=== PATIENT | male | born 1950 | race Caucasian/White ===

== ENCOUNTER 2016-07-02 14:07 | Inpatient (IN) ==
[2016-07-02] MEDS ORDERED: Ipratropium/Albuterol Neb 3 ML ONE (15:11)
[2016-07-02] MEDS ORDERED: Ipratropium/Albuterol Neb 3 ML IH ONE (15:11)
--- NOTE | 2016-07-02 15:11 | Emergency Department Note ---
Disposition Clinical Impression: Acute exacerbation of chronic obstructive airways disease, VINCE treated with BiPAP Acute and chronic respiratory failure ([id number]) Qualifiers: Respiratory failure complication: unspecified whether with hypoxia or hypercapnia Qualified Code(s): J96.20 - Acute and chronic respiratory failure, unspecified whether with hypoxia or hypercapnia Congestive heart failure Qualifiers: Congestive heart failure type: unspecified congestive heart failure type Congestive heart failure chronicity: unspecified congestive heart failure chronicity Qualified Code(s): I50.9 - Heart failure, unspecified Disposition: Admitted As Inpatient [facility]Primary Care Provider[facility] - Forms: ED Satisfaction Letter SOB HPI - General Chief Complaint: ED Shortness of Breath/Dyspnea Stated Complaint: DIAZ Time Seen by Provider: 07/02/16 14:11 Source: patient, EMS Limitations: no limitations Nursing Notes Reviewed: Yes Vital Signs Reviewed: Yes - History of Present Illness Pt Subjective Complaint: shortness of breath Onset (ago): day(s) (3) Severity: moderate Consistency/Duration: intermittent Improves with: oxygen, rest, bronchodilators, upright position Worsens with: lying flat, exertion Known history of: COPD, congestive heart failure Associated symptoms: Denies: chest pain, fever, sense of impending doom Treatment prior to arrival: oxygen, bronchodilator, other Cough present: No Cough Frequency: Intermittent - Related Data Home Medications Medication Instructions Recorded Confirmed Calcium Carbonate/Vitamin D3 1 tab PO BID 10/01/14 05/23/15 [Calcium 500-Vit D3 400 Tablet] Clopidogrel [Plavix] 75 mg PO DAILY 10/01/14 05/23/15 Cyanocobalamin (B-12) 1,000 mcg PO DAILY 10/01/14 05/23/15 Docusate Sodium [Colace] 100 mg PO BID PRN 10/01/14 05/23/15 Ferrous Sulfate 325 mg PO BID 10/01/14 05/23/15 Folic Acid 1 mg PO DAILY 10/01/14 05/23/15 Pramipexole [Mirapex] 1 mg PO BID 10/01/14 05/23/15 Sennosides [Senna] 8.6 mg PO BID PRN 10/01/14 05/23/15 Simvastatin [Zocor] 20 mg PO HS 10/01/14 05/23/15 Trihexyphenidyl [Artane] 1 mg PO BID 10/01/14 05/23/15 Budesonide/Formoterol 160/4.5 1 puff IH BIDR 03/24/15 05/23/15 [Symbicort 160/4.5] Omeprazole [PriLOSEC] 20 mg PO DAILY 05/23/15 05/23/15 Tiotropium [Spiriva] 18 mcg IH DAILY 05/23/15 05/23/15 Previous Rx's Medication Instructions Recorded Albuterol Sulfate [Albuterol 1 puff IH Q4H PRN #2 puff 03/28/15 Inhaler] Albuterol Neb [Proventil Neb] 2.5 mg IH Q4HR 60 Days 05/27/15 Aspirin 81 mg PO DAILY tab.chew 05/27/15 Doxycycline 100 mg PO BID 3 Days 05/27/15 Furosemide [Lasix] 40 mg PO BID 30 Days 05/27/15 GuaiFENesin ER [Mucinex] 600 mg PO BID 5 Days 05/27/15 acetaZOLAMIDE [Diamox] 250 mg PO DAILY 2 Days 05/27/15 predniSONE [Prednisone] 10 mg PO AD 6 Days 05/27/15 Allergies Allergy/AdvReac Type Severity Reaction Status Date / Time spironolactone Allergy Mild Hives Verified 07/02/16 14:10 hydrochlorothiazide Allergy Rash Verified 07/02/16 14:10 All systems ED: reviewed and negative except as stated. Constitutional: Reports: weakness. Denies: fever, chills Respiratory: Reports: dyspnea Past Medical History - Past Medical History Source: patient, old records reviewed, obtained from family, nursing notes reviewed Medical history: Reports: cancer, CHF, COPD, hyperlipidemia, hypertension, renal disease, other Surgical history: Reports: other Psychiatric history: Reports: no psych history - Social History Smoking Status: Former smoker Smokeless Tobacco Status: No Alcohol use: Reports: none Drug use: Reports: none Physical Exam - General Limitations: no limitations General appearance: alert, in no apparent distress - Head Head exam: atraumatic, normocephalic, normal inspection - Eye Eye exam: Present: normal appearance, PERRL, EOMI - Expanded Eye Exam Pupils: Left: reactive - ENT ENT exam: normal exam, normal oropharynx, mucous membranes moist - Expanded ENT Exam External ear exam: Present: normal external inspection Mouth exam: Present: normal external inspection Teeth exam: Present: normal inspection Throat exam: Present: normal inspection - Neck Neck exam: Present: normal inspection, full ROM, trachea midline - Chest Chest inspection: Present: normal inspection, symmetric chest wall rise - Respiratory Respiratory exam: Present: prolonged expiratory phase. Absent: respiratory distress, wheezes - Cardiovascular Cardiovascular exam: Present: regular rate, normal rhythm, normal heart sounds - Abdominal Exam Abdominal exam: Present: soft, Non-Tender. Absent: tenderness, distention, guarding, rebound, rigidity - Extremities Exam Extremities exam: Present: normal inspection, full ROM. Absent: tenderness, pedal edema - Expanded Upper Extremity Exam Shoulder exam: Present: normal inspection, full ROM Arm exam: Present: normal inspection, full ROM Elbow exam: Present: normal inspection, full ROM Forearm/Wrist exam: Present: normal inspection, full ROM Hand exam: Present: normal inspection, full ROM Vascular exam: Normal: capillary refill, radial pulse - Expanded Lower Extremity Exam Hip/Pelvis exam: Present: normal inspection, full ROM Upper leg exam: Present: normal inspection, full ROM Knee exam: Present: normal inspection, full ROM Lower leg exam: Present: other (2 + pitting edema) Ankle exam: Present: normal inspection, full ROM Foot/toe exam: Present: normal inspection, full ROM Neurovascular/Tendon exam: Absent: motor deficit, sensory deficit, tendon deficit - Back Exam Back exam: Present: normal inspection, full ROM. Absent: tenderness - Neurological Exam Neurological exam: Present: alert, oriented X3 - Expanded Neurological Exam Patient oriented to: Present: person, place, time Coma Scale Eye Opening: Spontaneous Coma Scale Motor Response: Obeys Commands Coma Scale Verbal Response: Oriented Coma Scale Total: 15 - Psychiatric Psychiatric exam: Present: normal affect, normal mood - Skin Skin exam: Present: warm, dry, intact, normal color Course Vital Signs Temperature 98.8 F 07/02/16 14:10 Pulse Rate 79 07/02/16 14:10 Respiratory Rate 20 07/02/16 14:10 Blood Pressure 121/81 07/02/16 14:10 O2 Sat by Pulse Oximetry 97 07/02/16 14:10 Temperature 98.8 F 07/02/16 14:10 Pulse Rate 85 07/02/16 15:42 Respiratory Rate 18 07/02/16 15:42 Blood Pressure 136/76 07/02/16 15:42 O2 Sat by Pulse Oximetry 94 07/02/16 15:42 Oxygen Delivery Oxygen Delivery Room Air Shortness of Breath/Dyspnea - Differential Diagnosis Likely: congestive heart failure, pneumonia, asthma with exacerbation, pulmonary embolism, pneumothorax, arrhythmia - Medical Records Medical records reviewed: Yes I reviewed the patient's medical records. - Lab Data Lab results reviewed: Yes I reviewed the patient's lab results. - Radiology Data Radiology results reviewed: Yes I reviewed the patient's radiology results. - EKG Data EKG attestation: Yes I reviewed and interpreted this EKG.
[2016-07-02] MEDS ORDERED: Furosemide 40 MG/4 ML VIAL IVP ONE (15:36)
[2016-07-02] MEDS ORDERED: Levofloxacin 750 MG/150 ML 750 MG/150 ML BAG IVPB ONE (16:46)
[2016-07-02] MEDS ORDERED: Ondansetron 4 MG/2 ML VIAL IVP PRN (20:27)
[2016-07-02] MEDS ORDERED: Acetaminophen 325 MG TABLET PO PRN (20:27)
[2016-07-02] MEDS ORDERED: Naloxone 0.4 MG/ML INJ IVP PRN (20:27)
[2016-07-02] MEDS ORDERED: Albuterol 2.5 MG/3 ML NEBULIZER IH PRN (20:30)
--- NOTE | 2016-07-02 20:52 | Internal Med History&Physical ---
Date of Encounter: 07/02/16 Time of Encounter: 20:42 Assessment and Plan (1) Diastolic CHF, acute on chronic Current visit: No Status: Acute 1 patient has been expressing increasing shortness of breath for the past 2 days as well as lower extremity edema weight gain. Chest x-ray did show some vascular congestion. We will continue diuresis patient with Lasix twice a day we will hold torsemide for now continue spironolactone 2 monitor intake and output daily weight 3 fluid restriction 1500 mL 4 low sodium diet (2) Acute and chronic respiratory failure ([id number]) Current visit: No Status: Acute 1 patient has been increasing increasing shortness of breath despite the use of oxygen on presentation his pH was 7.33 PCO2 71 PO2 66. We will continue with oxygen titrated to maintain SPO2 greater than 92% 2 BiPAP at night or obstructive sleep apnea 3 bronchodilators as needed Qualifiers: Respiratory failure complication: hypoxia and hypercapnia Qualified Code(s) : J96.21 - Acute and chronic respiratory failure with hypoxia; J96.22 - Acute and chronic respiratory failure with hypercapnia (3) VINCE treated with BiPAP Current visit: Yes Status: Chronic 1 continue with BiPAP at night and as needed while sleeping (4) Parkinson disease Current visit: No Status: Chronic We will continue his home medications (5) COPD (chronic obstructive pulmonary disease) Current visit: No Status: Chronic 1 patient has history of COPD oxygen dependent with continue with oxygen titrated to maintain SPO2 greater than 92% 2 we will continue with bronchodilators Qualifiers: COPD type: unspecified COPD Qualified Code(s): J44.9 - Chronic obstructive pulmonary disease, unspecified (6) CKD (chronic kidney disease), stage III Current visit: No Status: Chronic 1 presently creatinine is 1.21 which is around baseline we will continue to monitor creatinine 2 monitor intake and output daily weights 3 avoid nephrotoxins (7) DVT prophylaxis Current visit: No Status: Acute 1 [facility] - H&P: HPI Chief complaint: SOB Admitted From: Emergency Dept Plans for Post Hospital Care: Home History of present illness: Mr. Salcido is a 66 year old male . History of hypertension COPD oxygen dependent history of sleep apnea chronic lotion reinduce [facility] history aortic stenosis with status post TAVR 2014, CAD. According patient has been spacing increasing shortness of breath as well as lower extremity swelling over the past 2 days. He has had an 8 pound weight gain over the past 2 days Shortness of breath is worse on exertion he does use home oxygen at 1-1/2 L daily as well as breathing treatments however these have not relieved his shortness of breath. He does have a chronic cough he has been experiencing increase in sputum production which she states is yellow-green. She denies any fevers chills nausea vomiting diarrhea abdominal pain palpitations or chest pain. Patient has been taking all medications as prescribed. Also 2 days ago patient uses a walker in which she is able to sit down and as he was sitting in the walker he fell asleep and fell forward and hit his face onto the walker. He denies any loss of consciousness his left eye is reddened with no drainage or visual changes. He presented to the [facility] with the above complaints. Lab work from the [facility] revealed troponin 0.04 ABG pH 7.33 PCO2 71.2 PO2 56 bicarbonate 37.4 SaO2 85 lactate 0.4. No leukocytosis chest x-ray was obtained which did reveal stable cardiomegaly without evidence of pulmonary edema or pneumonia. Patient was transferred to [facility] for further workup and evaluation. Upon arrival to [facility] ER chest x-ray was obtained which did show some vascular congestion patient was given IV Lasix and DuoNeb. He was admitted for further workup and evaluation. Presently patient is not having any chest pain he does exhibit conversational dyspnea, oxygen saturations 95% on 2 L nasal cannula, lung sounds with scattered crackles in the bases bilaterally heart sounds with S1-S2 no rubs clicks gallops or murmurs noted. Patient has +2 pitting edema to lower extremity abdomen is obese nontender tight. Left eye has conjunctival hemorrhage no drainage noted. He is hemodynamically stable this time I reviewed this case with Dr. Wild who agrees with plan. Past Med Surg Social Fam HX - Past Medical History Medical history: cancer, CHF, COPD, hyperlipidemia, hypertension, renal disease , other Psychiatric history: no psych history, panic disorder, PTSD - Past Surgical History Surgical History: other - Social History Smoking Status: Former smoker Smokeless Tobacco Status: No Alcohol use: none Drug use: none - Family History Mother Family Member Ethnicity: Non- Living Status: Hx Family Respiratory Disorders: No Hx Family Cancer: No Hx Family GI Disorders: No Hx Family Endocrine Disorder: No Hx Family Neuromuscular Disorders: No Hx Family Neurologic Disorders: Yes (CVA.) Hx Family HEENT Disorders: No Hx Family Autoimmune Disorders: No Internal Medicine - H&P: Meds Calcium Carbonate/Vitamin D3 [Calcium 500-Vit D3 400 Tablet] 1 tab PO BID [History] Clopidogrel [Plavix] 75 mg PO DAILY 10/01/14 [History] Cyanocobalamin (B-12) 1,000 mcg PO DAILY 10/01/14 [History] Docusate Sodium [Colace] 100 mg PO BID 10/01/14 [History] Ferrous Sulfate 325 mg PO BID 10/01/14 [History] Folic Acid 1 mg PO DAILY 10/01/14 [History] Pramipexole [Mirapex] 1 mg PO BID 10/01/14 [History] Sennosides [Senna] 8.6 mg PO BID 10/01/14 [History] Simvastatin [Zocor] 20 mg PO HS 10/01/14 [History] Trihexyphenidyl [Artane] 2 mg PO TID 10/01/14 [History] Budesonide/Formoterol 160/4.5 [Symbicort 160/4.5] 2 puff IH BIDR 03/24/15 [ History] Omeprazole [PriLOSEC] 20 mg PO DAILY 05/23/15 [History] Tiotropium [Spiriva] 18 mcg IH DAILY 05/23/15 [History] Acetaminophen [Tylenol] 650 mg PO Q6HR PRN 07/02/16 [History] Albuterol Neb [Proventil Neb] 2.5 mg IH Q6H PRN 07/02/16 [History] Albuterol Sulfate [Albuterol Inhaler] 2 puff IH Q4H PRN 07/02/16 [History] Allopurinol [Zyloprim 100 MG] 100 mg PO DAILY 07/02/16 [History] Ammonium Lactate 1 appl TP BID PRN 07/02/16 [History] Azithromycin [Zithromax] 250 mg PO MOWEFR 07/02/16 [History] Bisacodyl [Dulcolax] 10 mg RC DAILY PRN 07/02/16 [History] Gabapentin [Neurontin] 100 mg PO TID 07/02/16 [History] Lidocaine 4% CRM (LMX) [Lmx 4] 1 appl TP TID PRN 07/02/16 [History] Melatonin 3 mg PO HS 07/02/16 [History] Polyethylene Glycol 3350 [Smoothlax] 17 gm PO DAILY PRN 07/02/16 [History] Potassium Chloride [K-Tab ER] 20 meq PO DAILY 07/02/16 [History] Sod Chloride/B-6/Zinc Acet/Ca [Wound Cleanser] 2 - 3 spray IR AD 07/02/16 [ History] Spironolactone [Aldactone] 25 mg PO DAILY 07/02/16 [History] Torsemide [Demadex] 20 mg PO BID 07/02/16 [History] Allergies spironolactone Allergy (Mild, Verified 07/02/16 14:10) Hives hydrochlorothiazide Allergy (Verified 07/02/16 14:10) Rash All Systems PM: A 10-system review of systems was performed and is negative for pertinent findings except as documented above in the HPI. - Constitutional Constitutional: fatigue, falls, weakness, weight gain - Cardiovascular Cardiovascular ROS IM: dyspnea on exertion, edema - Respiratory Respiratory: dyspnea on exertion, excessive phlegm production, change in phlegm color - Gastrointestinal Gastrointestinal: no abdominal pain, no diarrhea, no hematemesis, no hematochezia, no melena, no nausea, no vomiting - Musculoskeletal Musculoskeletal ROS IM: no numbness, no tingling - Integumentary Integumentary IM: erythema - Neurological Neurological ROS: no confusion, no convulsions, no focal weakness, no numbness, no tingling, no tremor(s) - Constitutional Vitals: Temp Pulse Resp BP Pulse Ox 97.8 F 92 20 135/79 94 07/02/16 18:01 07/02/16 18:01 07/02/16 18:01 07/02/16 18:01 07/02/16 18:01 General appearance: Present: A&O X 3, morbidly obese, answers questions appropriately - Head Head exam: Present: atraumatic, normocephalic - Eye Eye exam: Present: PERRL, conjuntiva pink Pupils: Present: PERRL Additional comments: Left eye lid conjunctival hemorrhage without drainage pain or visual disturbances - Neck Neck exam general surgery: Present: supple, trachea midline. Absent: lymphadenopathy - Respiratory Respiratory exam: Present: rales. Absent: accessory muscle use, rhonchi, wheezes - Cardiovascular Cardiovascular exam: Present: RRR, +S1, +S2. Absent: diastolic murmur, gallop, rubs, systolic murmur - GI/Abdominal GI/Abdominal exam: Present: distended, normal bowel sounds, soft, no peritoneal signs. Absent: tenderness - Extremities Exam Extremities exam: Present: pedal edema, warm, radial pulses palpable and symetrical. Absent: calf tenderness, cyanotic Additional comments: +2 pedal edema to lower extremity is bilaterally up to knees - Neurological Exam Neurological exam: Present: CN II-XII intact, oriented X3, no focal deficits. Absent: pronater drift, facial droop, speech deficit - Skin Skin exam: Present: dry, erythema, intact Internal Med - H&P Results - Labs Labs: Lab work per [facility] drawn at 07/02/2016 12:15 CBC WBC 7.4 hemoglobin 12.1 hematocrit 41.9 platelets 140 ABG pH 7.33P CO2 71.2 PO2 56 bicarbonate 37.4 SaO2 85 lactate 0.4 Chemistry sodium 146 potassium 3.7 chloride 101 bicarbonate 37 BUN 18 creatinine 1.21 glucose 94 Troponin 0.04 - EKG Data EKG shows normal: sinus rhythm Rate: normal - EKG Data Prior EKG available for review: yes When compared to previous EKG: there is no significant change - Diagnostic Studies Chest x-ray Additional comments: Chest X-Ray 07/02/16 14:12 IMPRESSION: CHF mild pulmonary vascular congestion. D/ / Floyd Perez MD / Floyd Perez MD Interpreting Provider: Floyd Perez MD Other Images Additional comments: CT of head without contrast obtained at [facility] on 07/02/2016 Progress etiology read no evidence of intracranial hemorrhage Mild patchy low density in the paraventricular white matter likely representing demyelinization due to small vessel ischemic changes Left maxillary sinus disease
[2016-07-02] MEDS: Budesonide/Formoterol 160/4.5 MDI IH SCH (21:03)
[2016-07-02] MEDS: Gabapentin 100 MG CAPSULE PO SCH (21:16)
[2016-07-02] MEDS: Melatonin 3 MG TABLET PO SCH (21:17)
[2016-07-02] MEDS: Furosemide 40 MG/4 ML VIAL IVP SCH (21:17)
--- NOTE | 2016-07-02 21:19 | Event Note ---
Date of Encounter: 07/02/16 Time of Encounter: 21:16 Patient seen and examined with nurse practitioner. Agree with assessment and plan. Patient presents mainly with a picture of acute congestive heart failure due to diastolic dysfunction. Will start bernardo Lasix 40 mg twice daily. Faustin catheter will be placed. Strict intake and output. He has slight chest tweezing suspect that it is related to congestion. But also give nebulizer treatment. [facility]ter[facility] showed the pH of 7.33's PCO2 70 and saturation of 85. Patient currently on 2 L nasal oxygen saturating early 90s. Reevaluate after IV diuresis. He has some cough minimal sputum production. No fevers chills. No pneumonia on chest x-ray.
[2016-07-02] MEDS: Ipratropium/Albuterol Neb 3 ML IH SCH (23:24)
[2016-07-03 02:53] LABS: Basophils % 0.2 %; Hematocrit 44.3 % (37.5-50.1); Immature Granulocytes % 0.3 % (0-4); Lymphocytes # 0.3 K/mcL (0.6-4.6); Lymphocytes % 5.1 %; Mean Corpuscular HGB Conc 29.3 g/dL (31.6-35.5); Mean Corpuscular Volume 95.5 fL (83.0-100.0); Mean Platelet Volume 10.8 fL (9.4-12.4); Monocytes # 0.1 K/mcL (0.0-1.3); Monocytes % 1.2 %; Neutrophils # 6.1 K/mcL (1.6-8.9); Platelet Count 147 K/mcL (140-400); Red Blood Count 4.64 M/mcL (4.19-5.50); Segmented Neutrophils % 93.2 %
[2016-07-03 03:10] LABS: BUN/Creatinine Ratio 18 (6-26); Blood Urea Nitrogen 21 mg/dL (8-26); Carbon Dioxide 35 mEq/L (19-29); Chloride 97 mEq/L (98-109); Glucose 135 mg/dL (70-99); Magnesium 2.2 mg/dL (1.6-2.6); Osmolality,Calculated 301 (280-300); Potassium 4.5 mEq/L (3.5-4.5); Sodium 143 mEq/L (136-145); eGFR For African Americans > 60 (> 60); eGFR For Non-African Americans > 60 (> 60)
[2016-07-03] MEDS: Ipratropium/Albuterol Neb 3 ML IH SCH ×6 (04:09→23:55)
[2016-07-03] MEDS: *HR* Enoxaparin 40 MG/0.4 ML SYRINGE SQ SCH (05:52)
[2016-07-03] MEDS: Tiotropium 18 MCG inhalation IH SCH (07:53)
[2016-07-03] MEDS: Budesonide/Formoterol 160/4.5 MDI IH SCH ×2 (07:53→20:43)
[2016-07-03] MEDS ORDERED: Levofloxacin 750 MG/150 ML 750 MG/150 ML BAG IVPB SCH (09:00)
--- NOTE | 2016-07-03 09:31 | ECHO - Doppler Report ---
Echocardiogram Name: Job Salcido Date of Study: 07/03/2016 Date: 1950 Ht: 70.0 in Medical Record#: [id number] Age: 66 Wt: 304.0 lb Gender: Male BSA: 2.49 Order #: [id number] Location: [facility] Room #: 2NE22 Reading Physician: Clau Nicole DO Steel Pourer Helper: Junaid Nuñez RN Ordering Physician: Rajni Campbell CNP Primary Physician: [facility] Indications: Shortness of breath Impressions: LVEF 65-70%. There is evidence of mild diastolic dysfunction of the left ventricle. Normal right ventricular size and function. No significant valvular dysfunction. Bioprosthetic aortic valve was not well visualized. Gradient, 15 mmHg may be normal for type and size of valve. No aortic regurgitation. No pulmonary hypertension by TR gradient. IVC is not well visualized to estimate RVSP. The ascending aorta appears mildly dilated, 4.2 cm. Consider dedicated imaging. Left Ventricular Wall Motion: Rest Echo Findings The mid inferior lateral and basal inferior lateral gottlieb were not visualized. All other wall segments showed normal motion. Findings: Study Quality * Technically sub-optimal due to body habitus. ECG Findings * Normal sinus rhythm. Aortic Valve * No aortic regurgitation. * Prosthetic aortic valve not well visualized. * No aortic stenosis. Mitral Valve * No mitral regurgitation. * No mitral stenosis. * Normal mitral structure. Aorta * Ascending aorta dilation, 4.2cm. Tricuspid Valve * Tricuspid valve not well visualized. * Trace tricuspid regurgitation. Pulmonic Valve * Pulmonic valve is not well visualized. * No pulmonic stenosis. * No pulmonic regurgitation. Pulmonary Artery * Pulmonary artery not well visualized. Left Ventricle * Normal LV chamber size, wall thickness and function. * Mild left ventricular diastolic dysfunction. * LVEF 65-70%. Right Ventricle * Normal right ventricular structure and function. Left Atrium * Normal left atrial size. Right Atrium * Normal right atrial size. Interatrial Septum * No evidence of PFO by color Doppler. Pericardium * There is no pericardial effusion present. IVC * The IVC is not well evaluated. History Hypertension Hypercholesteremia Years 20 Packs 3 Family History of CAD History of CAD/PTCA Myocardial Infarction Congestive Heart Failure Valvular Disease Valve Replacement AV Prosthesis Biologic 02/25/2015 a Previous Echo was performed. Measurements: BP: 145/ 91 2D Normal Values RVIDd: 2.70 cm <2.7 cm IVSd: 1.50 cm 0.6 - 1.0 cm LVIDd: 5.00 cm 3.7 - 5.6 cm LVPWd: 1.50 cm 0.6 - 1.1 cm LVIDs: 3.20 cm 1.5 - 3.6 cm LA: 4.20 cm 2.0 - 4.0cm %FS: 36.00 cm >25 % LVOT Diam: 2.00 cm LA volume: 96 Mitral Valve Peak E:1.14 m/sec Peak A:1.49 m/sec E/A Ratio:0.8 Peak E' Lat Cullen:7.9 cm/s Peak E' Med Cullen:15 cm/s E/E' Lat Ratio:14.4 E/E' Med Ratio:7.6 LVOT Peak Cullen:1.93 m/sec Mean Cullen:1.30 m/sec Peak Grad:15.00 mmHg Mean Grad:8.00 mmHg Aortic Valve Peak Cullen:2.83 m/sec Mean Cullen:1.85 m/sec Peak Grad:32.00 mmHg Mean Grad:15.00 mmHg Valve Area:2.25 cm2 Tricuspid Valve TV Regurg Peak Grad: 23.00mmHg TV Regurg Peak Cullen: 2.38m/sec Updated by Clau Nicole on 07/03/2016 9:21:55 AM electronically signed on 07/03/2016 9:25:23 AM with status of Final Wall Motion [place]: 1=Normal, 2=Hypokinesis, 3=Akinesis, 4=Dyskinesis, 5=Aneurysmal, 6=Hyperkinetic, X=Not Visualized (Blank)=Missing
[2016-07-03] MEDS: Furosemide 40 MG/4 ML VIAL IVP SCH (10:04)
[2016-07-03] MEDS: Folic Acid 1 MG TABLET PO SCH (10:04)
[2016-07-03] MEDS: Gabapentin 100 MG CAPSULE PO SCH ×3 (10:04→21:18)
[2016-07-03] MEDS: Spironolactone 25 MG TABLET PO SCH (10:05)
--- NOTE | 2016-07-03 10:55 | Internal Med Progress Note ---
Date of Encounter: 07/03/16 Time of Encounter: 10:53 - Assessment and plan (1) Hypercapnic respiratory failure Current Visit: Yes Status: Acute Assessment and plan: PH 7.33 and PCO2 70 on arrival yesterday. Notices improvement in respiratory status. 3 L O2. Qualifiers: Qualified Code(s): J96.92 - Respiratory failure, unspecified with hypercapnia (2) Diastolic CHF Current Visit: No Status: Chronic Assessment and plan: Not diuresing well with 40 IV BID lasix. Increase lasix to 60 IV BID. Qualifiers: Congestive heart failure chronicity: chronic Qualified Code(s): I50.32 - Chronic diastolic (congestive) heart failure (3) VINCE (obstructive sleep apnea) Current Visit: No Status: Chronic Assessment and plan: CPAP at night (4) COPD (chronic obstructive pulmonary disease) Current Visit: No Status: Chronic Assessment and plan: Stable. Continue around the clock nebulizer treatment. I dont think he requires any steroids or antibiotics Qualifiers: COPD type: unspecified COPD Qualified Code(s): J44.9 - Chronic obstructive pulmonary disease, unspecified - Subjective Interval history: Patient seen and examined. Notices improvement in respiratory status. Not diuresing well with 40 IV BID lasix. No sputum production, fever or chills. - Constitutional Vitals: Temp Pulse Resp BP Pulse Ox 97.7 F 76 16 130/72 97 07/03/16 07:51 07/03/16 07:51 07/03/16 07:53 07/03/16 07:51 07/03/16 07:53 General appearance: Present: A&O X 3, morbidly obese, answers questions appropriately Exam: Gen.: patient is alert oriented times 3 not in distress. Cardiac: normal S1 S2 no additional sounds or murmurs chest: fair air entry. no active wheezing. No crackles or bronchial breathing. abdomen: soft nontender nondistended normal bowel sounds neuro: no focal deficit LE: 2+ SWELING Internal Medicine: Result - Labs CBC & Chem 7: 07/03/16 02:45 07/03/16 02:45 Labs: Short CBC 07/03/16 Range/Units 02:45 WBC 6.5 (4.3-11.1) K/mcL Hgb 13.0 (12.9-16.9) g/dL Hct 44.3 (37.5-50.1) % Plt Count 147 (140-400) K/mcL Neutrophils # 6.1 (1.6-8.9) K/mcL BMP 07/03/16 02:45 Sodium 143 Potassium 4.5 Chloride 97 L Carbon Dioxide 35 H BUN 21 Creatinine 1.20 Glucose 135 H Calcium 9.0 Cardiac Enzymes 07/03/16 Range/Units 02:45 Troponin I 0.03 (0-0.03) ng/mL Consult Discharge Plan - Plan [facility]errals: [facility] [Primary Care Provider] -
--- NOTE | 2016-07-03 12:32 | Electrocardiograph Report ---
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
[2016-07-03] MEDS: Furosemide 100 MG/10 ML VIAL IVP SCH (17:07)
[2016-07-03] MEDS: Melatonin 3 MG TABLET PO SCH (21:17)
[2016-07-04] MEDS: Ipratropium/Albuterol Neb 3 ML IH SCH ×6 (04:08→23:47)
[2016-07-04 04:17] LABS: Basophils % 0.2 %; Eosinophils % 0.9 %; Hemoglobin 12.5 g/dL (12.9-16.9); Immature Granulocytes % 0.2 % (0-4)
[2016-07-04 04:18] LABS: Eosinophils # 0.1 K/mcL (0.0-0.6); Lymphocytes # 0.7 K/mcL (0.6-4.6); Lymphocytes % 7.7 %; Mean Corpuscular HGB Conc 29.8 g/dL (31.6-35.5); Mean Corpuscular Hemoglobin 28.9 pg (28.0-33.3); Mean Platelet Volume 11.1 fL (9.4-12.4); Monocytes # 0.6 K/mcL (0.0-1.3); Neutrophils # 7.6 K/mcL (1.6-8.9); Platelet Count 148 K/mcL (140-400); Red Blood Count 4.33 M/mcL (4.19-5.50); Red Cell Distribution Width 15.6 % (11.5-14.5)
[2016-07-04 04:41] LABS: BUN/Creatinine Ratio 20 (6-26); Blood Urea Nitrogen 24 mg/dL (8-26); Carbon Dioxide 35 mEq/L (19-29); Chloride 104 mEq/L (98-109); Glucose 110 mg/dL (70-99); Magnesium 1.7 mg/dL (1.6-2.6); Osmolality,Calculated 307 (280-300); Sodium 146 mEq/L (136-145); eGFR For African Americans > 60 (> 60); eGFR For Non-African Americans > 60 (> 60)
[2016-07-04 04:42] LABS: Calcium 7.5 mg/dL (8.6-10.8); Potassium 3.2 mEq/L (3.5-4.5)
[2016-07-04 05:35] LABS: Large Platelets Present (Not Present); Platelet Estimate Normal (Normal)
[2016-07-04] MEDS: *HR* Enoxaparin 40 MG/0.4 ML SYRINGE SQ SCH (06:29)
[2016-07-04] MEDS: Budesonide/Formoterol 160/4.5 MDI IH SCH ×2 (07:54→20:13)
[2016-07-04] MEDS: Folic Acid 1 MG TABLET PO SCH (09:36)
[2016-07-04] MEDS: Spironolactone 25 MG TABLET PO SCH (09:36)
[2016-07-04] MEDS: Gabapentin 100 MG CAPSULE PO SCH ×3 (09:36→20:53)
[2016-07-04] MEDS: Furosemide 100 MG/10 ML VIAL IVP SCH ×2 (09:36→17:21)
[2016-07-04] MEDS: Tiotropium 18 MCG inhalation IH SCH (11:50)
--- NOTE | 2016-07-04 12:34 | Internal Med Progress Note ---
<Rei Flores - Last Filed: 07/04/16 12:32> Date of Encounter: 07/04/16 Time of Encounter: 12:32 - Assessment and plan (1) Acute and chronic respiratory failure ([id number]) Current Visit: Yes Status: Acute Assessment and plan: 58-year-old male with history of hypertension, COPD, sleep apnea, CKD, aortic stenosis status post table 2015, coronary artery disease presented with increasing shortness of breath and lower extremity swelling. Patient has gained 8 pounds. His shortness of breath has not improved with breathing treatments and worsens with exertion. He has not increased sputum production. He initially went to the [place] where he was noted to his troponin 10.04 and ABG was showing a pH of 7.33 with a PCO2 of 71 and PO2 of 56. His lactate was 0.4. Chest x-ray showed pulmonary venous congestion. Echocardiogram shows EF of 65-70% with evidence of mild diastolic dysfunction. Patient has a bioprosthetic aortic valve without aortic regurg. Secondary to diastolic CHF, acute on chronic and in setting of COPD and sleep apnea. Shortness of breath improving. Patient is on 4 L oxygen will slowly titrate down with SPO2 goal of 90%. Rales still noted on lung exam Continue Lasix, spironolactone. Torsemide on hold. Strict I AND O and daily weight. Fluid restriction to 1500 mL Low-salt diet. Qualifiers: Respiratory failure complication: hypoxia and hypercapnia Qualified Code(s) : J96.21 - Acute and chronic respiratory failure with hypoxia; J96.22 - Acute and chronic respiratory failure with hypercapnia (2) Diastolic CHF, acute on chronic Current Visit: Yes Status: Acute Assessment and plan: Continue diuresis with Lasix and spironolactone. Cumulative I and O's -2600. Continue BiPAP at night Patient's potassium has dropped from 4 from 5-3.2 secondary to diuresis. Continue daily potassium. We will monitor. BMP tomorrow. (3) Parkinson disease Current Visit: Yes Status: Chronic Assessment and plan: History of Parkinson's disease Currently patient does not have resting tremor noted on exam. Continue pramipexole and trihexyphenidyl (4) VINCE treated with BiPAP Current Visit: Yes Status: Chronic Assessment and plan: Continue BiPAP at night and when sleeping. (5) DVT prophylaxis Current Visit: Yes Status: Acute Assessment and plan: Continue Lovenox (6) COPD (chronic obstructive pulmonary disease) Current Visit: No Status: Chronic Assessment and plan: Stable. Continue nebulizer treatments, Symbicort inhaler Qualifiers: COPD type: unspecified COPD Qualified Code(s): J44.9 - Chronic obstructive pulmonary disease, unspecified (7) CKD (chronic kidney disease), stage III Current Visit: Yes Status: Chronic Assessment and plan: Patient's creatinine is baseline. He is on a fluid restricted diet of 1500 mL. Repeat BMP tomorrow to monitor CkD. - Subjective Interval history: 66-year-old presents with increasing shortness of breath and lower extremity swelling. Patient is admitted for diastolic CHF acute on chronic. Currently being diuresed. States his shortness of breath is improved over the last 2 days. No acute overnight events. - Constitutional Vitals: Temp Pulse Resp BP Pulse Ox 97.9 F 89 18 128/74 94 07/04/16 12:07 07/04/16 12:07 07/04/16 12:07 07/04/16 12:07 07/04/16 12:07 General appearance: Present: A&O X 3, morbidly obese, answers questions appropriately - Neck Neck exam general surgery: Present: supple, trachea midline. Absent: lymphadenopathy - Respiratory Respiratory exam: Present: rales (Bilaterally). Absent: accessory muscle use, wheezes - Cardiovascular Cardiovascular exam: Present: RRR, +S1, +S2. Absent: diastolic murmur, gallop, rubs, systolic murmur - GI/Abdominal GI/Abdominal exam: Present: normal bowel sounds (Difficulty here due to increased body size.), soft, no peritoneal signs. Absent: distended, tenderness - Extremities Exam Extremities exam: Present: radial pulses palpable and symetrical Additional comments: Bilateral lower extremity 2+ edema with redness. Internal Medicine: Result - Labs CBC & Chem 7: 07/04/16 03:58 07/04/16 03:58 Labs: Short CBC 07/04/16 Range/Units 03:58 WBC 9.1 (4.3-11.1) K/mcL Hgb 12.5 L (12.9-16.9) g/dL Hct 42.0 (37.5-50.1) % Plt Count 148 (140-400) K/mcL Neutrophils # 7.6 (1.6-8.9) K/mcL BMP 07/04/16 03:58 Sodium 146 H Potassium 3.2 L D Chloride 104 Carbon Dioxide 35 H BUN 24 Creatinine 1.19 Glucose 110 H Calcium 7.5 L D Consult Discharge Plan - Plan [facility]errals: [facility] Care Provider[facility] - <Brian Barrientos - Last Filed: 07/04/16 18:39> Date of Encounter: 07/04/16 - Assessment and plan (1) Acute and chronic respiratory failure ([id number]) Current Visit: Yes Status: Acute Qualifiers: Respiratory failure complication: hypoxia and hypercapnia Qualified Code(s) : J96.21 - Acute and chronic respiratory failure with hypoxia; J96.22 - Acute and chronic respiratory failure with hypercapnia (2) Diastolic CHF Current Visit: No Status: Chronic Assessment and plan: Diuresing. Qualifiers: Congestive heart failure chronicity: acute on chronic Qualified Code(s): I50.33 - Acute on chronic diastolic (congestive) heart failure (3) CKD (chronic kidney disease), stage III Current Visit: Yes Status: Chronic (4) Parkinson disease Current Visit: Yes Status: Chronic (5) VINCE treated with BiPAP Current Visit: Yes Status: Chronic (6) GERD (gastroesophageal reflux disease) Current Visit: No Status: Acute Qualifiers: Esophagitis presence: without esophagitis Qualified Code(s): K21.9 - Gastro -esophageal reflux disease without esophagitis (7) HTN (hypertension) Current Visit: No Status: Chronic - Constitutional Vitals: Temp Pulse Resp BP Pulse Ox 97.5 F L 86 16 112/75 98 07/04/16 14:58 07/04/16 14:58 07/04/16 16:15 07/04/16 14:58 07/04/16 16:15 Internal Medicine: Result - Labs CBC & Chem 7: 07/04/16 03:58 07/04/16 03:58 Labs: Short CBC 07/04/16 Range/Units 03:58 WBC 9.1 (4.3-11.1) K/mcL Hgb 12.5 L (12.9-16.9) g/dL Hct 42.0 (37.5-50.1) % Plt Count 148 (140-400) K/mcL Neutrophils # 7.6 (1.6-8.9) K/mcL BMP 07/04/16 03:58 Sodium 146 H Potassium 3.2 L D Chloride 104 Carbon Dioxide 35 H BUN 24 Creatinine 1.19 Glucose 110 H Calcium 7.5 L D - Attending Attestation I examined this patient and my medical decision-making was reviewed with the Resident Physician on 07/04/16. I agree with the documented findings, disposition and treatment plan as described except to the extent set forth below. Mr. Salcido is currently admitted for acute on chronic resp failure and acute diastolic CHF. He is moderate to high risk due to potential for worsening respiratory status. Mr Salcido is doing OK but is concerned that he is unable to hold head up. This has been going on for a while and he has had some work up at [place]. He denies pain. His breathing is better. He denies other issues. Exam Alert Comfortable Heart reg No wheeze Head drooped forward. He is able to lift it but it goes back down. No pain on palpation. Edema present I/P 1. Resp failure 2. CHF 3. Neck issue Further diagnoses and plan as above.
[2016-07-04] MEDS: Melatonin 3 MG TABLET PO SCH (20:53)
[2016-07-04] MEDS: *HR* HYDROcodone/Acet 5/325 mg TABLET PO PRN (21:46)
[2016-07-05] MEDS: Ipratropium/Albuterol Neb 3 ML IH SCH ×6 (04:11→23:21)
[2016-07-05] MEDS: *HR* Enoxaparin 40 MG/0.4 ML SYRINGE SQ SCH (05:39)
[2016-07-05] MEDS: *HR* HYDROcodone/Acet 5/325 mg TABLET PO PRN (05:42)
[2016-07-05] MEDS: Tiotropium 18 MCG inhalation IH SCH (08:03)
[2016-07-05] MEDS: Budesonide/Formoterol 160/4.5 MDI IH SCH ×2 (08:03→19:34)
[2016-07-05] MEDS: Furosemide 100 MG/10 ML VIAL IVP SCH (08:37)
[2016-07-05] MEDS: Spironolactone 25 MG TABLET PO SCH (08:38)
[2016-07-05] MEDS: Gabapentin 100 MG CAPSULE PO SCH ×3 (08:39→23:07)
[2016-07-05] MEDS: Folic Acid 1 MG TABLET PO SCH (08:39)
--- NOTE | 2016-07-05 11:49 | Internal Med Progress Note ---
<Rei Flores - Last Filed: 07/05/16 13:44> Date of Encounter: 07/05/16 Time of Encounter: 11:27 - Assessment and plan (1) Acute and chronic respiratory failure ([id number]) Current Visit: Yes Status: Acute Assessment and plan: 58-year-old male with history of hypertension, COPD, sleep apnea, CKD, aortic stenosis status post table 2015, coronary artery disease presented with increasing shortness of breath and lower extremity swelling. Patient has gained 8 pounds. His shortness of breath has not improved with breathing treatments and worsens with exertion. He has not increased sputum production. He initially went to the [place] where he was noted to his troponin 10.04 and ABG was showing a pH of 7.33 with a PCO2 of 71 and PO2 of 56. His lactate was 0.4. Chest x-ray showed pulmonary venous congestion. Echocardiogram shows EF of 65-70% with evidence of mild diastolic dysfunction. Patient has a bioprosthetic aortic valve without aortic regurg. Secondary to diastolic CHF, acute on chronic and in setting of COPD and sleep apnea. Shortness of breath improving. Patient is on 4 L oxygen will slowly titrate down with SPO2 goal of 90% and BiPAP at night or when sleeping. Rales still noted on lung exam decrease Lasix to 40mg IV daily due to contraction alkalosis and worsening Scr, continue spironolactone. Strict I AND O and daily weight. Fluid restriction to 1500 mL Low-salt diet. Qualifiers: Respiratory failure complication: hypoxia and hypercapnia Qualified Code(s) : J96.21 - Acute and chronic respiratory failure with hypoxia; J96.22 - Acute and chronic respiratory failure with hypercapnia (2) Diastolic CHF, acute on chronic Current Visit: Yes Status: Acute Assessment and plan: Continue diuresis with Lasix and spironolactone. Cumulative I and O's -4700. Continue BiPAP at night Patient's potassium has dropped from 4 from 5-3.2 secondary to diuresis. Continue daily potassium. We will monitor. BMP tomorrow. (3) Parkinson disease Current Visit: Yes Status: Chronic Assessment and plan: History of Parkinson's disease Currently patient does not have resting tremor noted on exam. Continue pramipexole and trihexyphenidyl (4) VINCE treated with BiPAP Current Visit: Yes Status: Chronic Assessment and plan: Continue BiPAP at night and when sleeping. (5) DVT prophylaxis Current Visit: Yes Status: Acute Assessment and plan: Continue Lovenox (6) COPD (chronic obstructive pulmonary disease) Current Visit: Yes Status: Chronic Assessment and plan: Stable. Continue nebulizer treatments, Symbicort inhaler Qualifiers: COPD type: unspecified COPD Qualified Code(s): J44.9 - Chronic obstructive pulmonary disease, unspecified (7) CKD (chronic kidney disease), stage III Current Visit: Yes Status: Chronic Assessment and plan: worsening of Scr due to contraction alkalosis from diuresis decrease lasix to 40mg daily He is on a fluid restricted diet of 1500 mL. Repeat BMP tomorrow to monitor CkD. (8) Eye redness Current Visit: Yes Status: Acute Assessment and plan: Patient states he inured his left eye by accidentally poking himself with his left finger nail. He has left eye subconjunctival hemorrhage at the medial aspect He has worsening b/l eye redness. Denies any vision changes He has increased drainage of his left eye compared to yesterday that is not purulent. We will start on gentamicin solution eye drops QID reassess tomorrow. - Subjective Interval history: States his sob is stable, no improvement from yesterday. In the morning patient was found to have lips, reddened eyes. Saturation 96% on 4 L. He was restarted on BiPAP. Respiratory as called and noted that he had a high leak on BiPAP. Patient was refitted with a BiPAP and was more awake later in the morning with shortness of breath improved. - Constitutional Vitals: Temp Pulse Resp BP Pulse Ox 97.7 F 88 18 115/83 90 07/05/16 07:43 07/05/16 07:43 07/05/16 11:07 07/05/16 07:43 07/05/16 11:07 General appearance: Present: A&O X 3, morbidly obese, answers questions appropriately - Eye Additional comments: b/l conjunctivitis with non-purulent drainage from left eye. and a left subconjunctival hemorrhage on the medial left eye. - Neck Neck exam general surgery: Present: supple, trachea midline. Absent: lymphadenopathy - Respiratory Respiratory exam: Present: decreased breath sounds, rales (Bilaterally) - Cardiovascular Cardiovascular exam: Present: RRR, +S1, +S2. Absent: diastolic murmur, gallop, rubs, systolic murmur - GI/Abdominal GI/Abdominal exam: Present: normal bowel sounds, soft, no peritoneal signs. Absent: distended, tenderness - Extremities Exam Extremities exam: Present: full ROM, radial pulses palpable and symetrical Additional comments: Bilateral lower extremity 2+ edema with redness. Internal Medicine: Result - Labs CBC & Chem 7: 07/04/16 03:58 07/05/16 12:31 Consult Discharge Plan - Plan [facility]errals: [facility] [Primary Care Provider] - <Brian Barrientos - Last Filed: 07/05/16 14:01> Date of Encounter: 07/05/16 - Assessment and plan (1) Subconjunctival hemorrhage of left eye Current Visit: Yes Status: Acute (2) Conjunctivitis of right eye Current Visit: Yes Status: Acute Qualifiers: Conjunctivitis type: acute Acute conjunctivitis type: unspecified Qualified Code(s): H10.31 - Unspecified acute conjunctivitis, right eye (3) Acute and chronic respiratory failure ([id number]) Current Visit: Yes Status: Acute Qualifiers: Respiratory failure complication: hypoxia and hypercapnia Qualified Code(s) : J96.21 - Acute and chronic respiratory failure with hypoxia; J96.22 - Acute and chronic respiratory failure with hypercapnia (4) Diastolic CHF Current Visit: Yes Status: Acute Qualifiers: Congestive heart failure chronicity: acute on chronic Qualified Code(s): I50.33 - Acute on chronic diastolic (congestive) heart failure (5) CKD (chronic kidney disease), stage III Current Visit: Yes Status: Chronic (6) Parkinson disease Current Visit: Yes Status: Chronic (7) VINCE treated with BiPAP Current Visit: Yes Status: Chronic (8) GERD (gastroesophageal reflux disease) Current Visit: Yes Status: Chronic Qualifiers: Esophagitis presence: without esophagitis Qualified Code(s): K21.9 - Gastro -esophageal reflux disease without esophagitis (9) HTN (hypertension) Current Visit: Yes Status: Chronic Qualifiers: Qualified Code(s): I10 - Essential (primary) hypertension (10) Obesity (BMI 30-39.9) Current Visit: Yes Status: Chronic - Constitutional Vitals: Temp Pulse Resp BP Pulse Ox 97.7 F 88 18 115/83 90 07/05/16 07:43 07/05/16 07:43 07/05/16 11:07 07/05/16 07:43 07/05/16 11:07 Internal Medicine: Result - Labs CBC & Chem 7: 07/04/16 03:58 07/05/16 12:31 Labs: BMP 07/05/16 12:31 Sodium 143 Potassium 3.9 Chloride 94 L Carbon Dioxide 41 H* BUN 26 Creatinine 1.47 H Glucose 128 H Calcium 9.3 D - Attending Attestation I examined this patient and my medical decision-making was reviewed with the Resident Physician on 07/05/16. I agree with the documented findings, disposition and treatment plan as described except to the extent set forth below. Mr. Salcido is currently admitted for acute hypoxic/hypercarbic resp failure due to CHF. He is moderate to high risk due to potential for worsening respiratory and cardiac status. Mr. Salcido was more somnolent this AM. Bipap adjusted and he is doing better later in the morning. Both his eyes are red. R eye is draining. No CP. Breathing better. No fever or chills. No cough. Exam Alert. Comfortable L eye with apparent subconjunctival hemorrhage. R eye with conjunctival erythema and clear drainage Heart reg Lungs diminished Edema seems a little better I/P 1. L subconjunctival hemorrhage 2. R conjunctival irritation - start drops 3. Hypoxic 4. CHF Further diagnoses and plan as above.
[2016-07-05 13:28] LABS: Magnesium 2.4 mg/dL (1.6-2.6); Potassium 3.9 mEq/L (3.5-4.5)
[2016-07-05 13:29] LABS: Calcium 9.3 mg/dL (8.6-10.8)
[2016-07-05] MEDS ORDERED: Gentamicin OPTH Soln 5 ML BOTTLE RIGHT EYE SCH (13:45)
[2016-07-05] MEDS: Gentamicin OPTH Soln 5 ML BOTTLE BOTH EYES SCH ×3 (15:25→23:09)
[2016-07-05] MEDS: Melatonin 3 MG TABLET PO SCH (23:08)
[2016-07-06] MEDS: Ipratropium/Albuterol Neb 3 ML IH SCH ×5 (03:23→20:19)
[2016-07-06] MEDS: *HR* Enoxaparin 40 MG/0.4 ML SYRINGE SQ SCH (05:00)
[2016-07-06 05:06] LABS: BUN/Creatinine Ratio 21 (6-26); Blood Urea Nitrogen 28 mg/dL (8-26); Calcium 9.1 mg/dL (8.6-10.8); Chloride 96 mEq/L (98-109); Glucose 110 mg/dL (70-99); Osmolality,Calculated 302 (280-300); Potassium 4.6 mEq/L (3.5-4.5); Sodium 143 mEq/L (136-145); eGFR For African Americans > 60 (> 60); eGFR For Non-African Americans 52 (> 60)
[2016-07-06 05:11] LABS: Carbon Dioxide 40 mEq/L (19-29)
[2016-07-06] MEDS: Tiotropium 18 MCG inhalation IH SCH (07:51)
[2016-07-06] MEDS: Budesonide/Formoterol 160/4.5 MDI IH SCH ×2 (07:53→20:19)
[2016-07-06] MEDS: Folic Acid 1 MG TABLET PO SCH (08:39)
[2016-07-06] MEDS: Gentamicin OPTH Soln 5 ML BOTTLE BOTH EYES SCH ×4 (08:39→21:03)
[2016-07-06] MEDS: Spironolactone 25 MG TABLET PO SCH (08:39)
[2016-07-06] MEDS: Gabapentin 100 MG CAPSULE PO SCH ×3 (08:39→20:52)
[2016-07-06] MEDS: Furosemide 40 MG/4 ML VIAL IVP SCH (08:39)
--- NOTE | 2016-07-06 14:11 | Internal Med Progress Note ---
<Yazmin Robbins - Last Filed: 07/06/16 16:31> Date of Encounter: 07/06/16 Time of Encounter: 13:15 - Assessment and plan (1) Acute and chronic respiratory failure ([id number]) Current Visit: Yes Status: Acute Assessment and plan: - Likely Secondary to acute on chronic diastolic CHF in the setting of COPD and sleep apnea. - Clinically improves as patient reports breathing better compared to yesterday. - Still on 4 L oxygen will slowly titrate down with SPO2 goal of 90%. - Continue diuresis with Lasix and Aldactone for acute on chronic CHF. - Continue bronchodilators, Symbicort and supplemental oxygen for COPD. - Continue BiPAP use at night and sleep. Qualifiers: Respiratory failure complication: hypoxia and hypercapnia Qualified Code(s) : J96.21 - Acute and chronic respiratory failure with hypoxia; J96.22 - Acute and chronic respiratory failure with hypercapnia (2) Diastolic CHF, acute on chronic Current Visit: Yes Status: Acute Assessment and plan: - Echo on 07/03/16 found LVEF 65-70% with mild LV diastolic dysfunction. - Negative 5890 mL so far since admission. - Clinically improves as patient reports better breathing and decrease in bilateral lower extremity edema. - Will decrease Lasix to 40mg IV daily given contraction alkalosis and worsening Scr. Continue spironolactone. - Strict I/O and daily weight. - Low-salt diet and fluid restriction of 1.5 L. - Continue BiPAP use at night or sleep. - Will hold daily KCl for now given elevated K at 4.6 today. - Continue to monitor renal function and electrolytes. (3) COPD (chronic obstructive pulmonary disease) Current Visit: Yes Status: Chronic Assessment and plan: - Continue bronchodilators, Symbicort and supplemental oxygen. Qualifiers: COPD type: unspecified COPD Qualified Code(s): J44.9 - Chronic obstructive pulmonary disease, unspecified (4) VINCE treated with BiPAP Current Visit: Yes Status: Chronic Assessment and plan: - Continue BiPAP use at night and sleep. (5) Conjunctivitis of right eye Current Visit: Yes Status: Acute Assessment and plan: - Right eye redness with pain (especially when looking medially) and likely conjunctival hemorrhage at medial aspect of right eye. - Patient reports no vision deficit. - Case was discussed with Dr. Branch of opthamology. Given no vision deficit, it's not urgent and better to have patient seen at his clinic for better eye exam equipments there. - Will set up outpatient referral to Dr. Branch after discharge. - Continue gentamicin eye drop. Qualifiers: Conjunctivitis type: acute Acute conjunctivitis type: unspecified Qualified Code(s): H10.31 - Unspecified acute conjunctivitis, right eye (6) Subconjunctival hemorrhage of left eye Current Visit: Yes Status: Acute Assessment and plan: - Patient reports poking his left eye on the day prior to admission. - Subconjunctival hemorrhage of medial aspect of left eye noted on exam. - Continue to monitor. (7) Parkinson disease Current Visit: Yes Status: Chronic Assessment and plan: - History of Parkinson's disease - Continue pramipexole and trihexyphenidyl (8) DVT prophylaxis Current Visit: Yes Status: Acute Assessment and plan: - Continue Lovenox - Subjective Interval history: No significant event noted overnight. Patient was seen and examined this morning. Patient reports breathing and bilateral lower extremity swelling better compared to yesterday. Patient still has right eye pain, especially when looking medially, but denies vision change. Patient denies chest pain, fever, chills, nausea, vomiting, diarrhea. - Constitutional Vitals: Temp Pulse Resp BP Pulse Ox 98.1 F 93 16 118/62 92 07/06/16 11:13 07/06/16 11:13 07/06/16 11:22 07/06/16 11:13 07/06/16 11:22 General appearance: Present: cooperative, A&O X 3, morbidly obese, no acute distress, answers questions appropriately - Head Head exam: Present: atraumatic, normocephalic - Eye Eye exam: Present: EOMI, PERRL, conjuntiva pink, sclera anicteric - Neck Neck exam general surgery: Present: supple, trachea midline. Absent: lymphadenopathy - Respiratory Respiratory exam: Present: decreased breath sounds. Absent: accessory muscle use, rales, rhonchi, wheezes - Cardiovascular Cardiovascular exam: Present: RRR, +S1, +S2. Absent: diastolic murmur, gallop, rubs, systolic murmur - GI/Abdominal GI/Abdominal exam: Present: normal bowel sounds, soft, no peritoneal signs. Absent: distended, tenderness - Extremities Exam Extremities exam: Present: warm, radial pulses palpable and symetrical. Absent : calf tenderness, cyanotic Additional comments: 2+ bilateral lower extremity pitting edema with erythema. - Neurological Exam Neurological exam: Present: CN II-XII intact, oriented X3, no focal deficits. Absent: pronater drift, facial droop, speech deficit - Skin Skin exam: Present: dry, intact, warm Internal Medicine: Result - Labs CBC & Chem 7: 07/04/16 03:58 07/06/16 04:44 Labs: BMP 07/06/16 04:44 Sodium 143 Potassium 4.6 H Chloride 96 L Carbon Dioxide 40 H* BUN 28 H Creatinine 1.36 H Glucose 110 H Calcium 9.1 Consult Discharge Plan - Plan [facility]errals: [facility] [Primary Care Provider] - <Brian Barrientos - Last Filed: 07/06/16 17:16> Date of Encounter: 07/06/16 - Assessment and plan (1) Subconjunctival hemorrhage of left eye Current Visit: Yes Status: Acute (2) Conjunctivitis of right eye Current Visit: Yes Status: Acute Qualifiers: Conjunctivitis type: acute Acute conjunctivitis type: unspecified Qualified Code(s): H10.31 - Unspecified acute conjunctivitis, right eye (3) Acute and chronic respiratory failure ([id number]) Current Visit: Yes Status: Acute Qualifiers: Respiratory failure complication: hypoxia and hypercapnia Qualified Code(s) : J96.21 - Acute and chronic respiratory failure with hypoxia; J96.22 - Acute and chronic respiratory failure with hypercapnia (4) Diastolic CHF Current Visit: Yes Status: Acute Qualifiers: Congestive heart failure chronicity: acute on chronic Qualified Code(s): I50.33 - Acute on chronic diastolic (congestive) heart failure (5) CKD (chronic kidney disease), stage III Current Visit: Yes Status: Chronic (6) Parkinson disease Current Visit: Yes Status: Chronic (7) VINCE treated with BiPAP Current Visit: Yes Status: Chronic (8) GERD (gastroesophageal reflux disease) Current Visit: Yes Status: Chronic Qualifiers: Esophagitis presence: without esophagitis Qualified Code(s): K21.9 - Gastro -esophageal reflux disease without esophagitis (9) HTN (hypertension) Current Visit: Yes Status: Chronic Qualifiers: Qualified Code(s): I10 - Essential (primary) hypertension (10) Obesity (BMI 30-39.9) Current Visit: Yes Status: Chronic - Constitutional Vitals: Temp Pulse Resp BP Pulse Ox 98.0 F 91 20 108/67 98 07/06/16 15:59 07/06/16 15:59 07/06/16 15:59 07/06/16 15:59 07/06/16 15:59 Internal Medicine: Result - Labs CBC & Chem 7: 07/04/16 03:58 07/06/16 04:44 Labs: BMP 07/06/16 04:44 Sodium 143 Potassium 4.6 H Chloride 96 L Carbon Dioxide 40 H* BUN 28 H Creatinine 1.36 H Glucose 110 H Calcium 9.1 - Attending Attestation I examined this patient and my medical decision-making was reviewed with the Resident Physician on 07/06/16. I agree with the documented findings, disposition and treatment plan as described except to the extent set forth below. Mr. Salcido is currently admitted for acute resp failure and diastolic heart failure. He is moderate to high risk due to potential for worsening resp status. Mr Salcido was off bipap last night and hard to arouse. He is better this AM after wearing it. Eyes are still red and R is painful at times. Not as puffy. Overall hs feels he is approaching baseline. Exam Alert. Comfortable Heart reg No wheeze Edema improving Conjunctiva red I/P 1. Diastolic CHF 2. VINCE Further diagnoses and plan as above.
[2016-07-06] MEDS: Melatonin 3 MG TABLET PO SCH (21:11)
[2016-07-07] MEDS: Ipratropium/Albuterol Neb 3 ML IH SCH ×4 (00:23→11:03)
[2016-07-07 04:49] LABS: Basophils % 0.3 %; Eosinophils # 0.2 K/mcL (0.0-0.6); Hematocrit 41.7 % (37.5-50.1); Hemoglobin 12.3 g/dL (12.9-16.9); Immature Granulocytes % 0.3 % (0-4); Lymphocytes # 0.8 K/mcL (0.6-4.6); Lymphocytes % 10.7 %; Mean Corpuscular HGB Conc 29.5 g/dL (31.6-35.5); Mean Corpuscular Hemoglobin 28.3 pg (28.0-33.3); Mean Corpuscular Volume 96.1 fL (83.0-100.0); Mean Platelet Volume 10.5 fL (9.4-12.4); Monocytes # 0.5 K/mcL (0.0-1.3); Monocytes % 6.9 %; Neutrophils # 5.8 K/mcL (1.6-8.9); Platelet Count 139 K/mcL (140-400); Red Blood Count 4.34 M/mcL (4.19-5.50); Red Cell Distribution Width 15.4 % (11.5-14.5); Segmented Neutrophils % 78.8 %
[2016-07-07 05:02] LABS: BUN/Creatinine Ratio 23 (6-26); Blood Urea Nitrogen 25 mg/dL (8-26); Calcium 9.2 mg/dL (8.6-10.8); Chloride 96 mEq/L (98-109); Glucose 121 mg/dL (70-99); Osmolality,Calculated 298 (280-300); Potassium 3.9 mEq/L (3.5-4.5); Sodium 141 mEq/L (136-145); eGFR For African Americans > 60 (> 60); eGFR For Non-African Americans > 60 (> 60)
[2016-07-07 05:11] LABS: Carbon Dioxide 40 mEq/L (19-29)
[2016-07-07] MEDS: *HR* Enoxaparin 40 MG/0.4 ML SYRINGE SQ SCH (06:09)
[2016-07-07] MEDS: Spironolactone 25 MG TABLET PO SCH (07:56)
[2016-07-07] MEDS: Folic Acid 1 MG TABLET PO SCH (07:56)
[2016-07-07] MEDS: Furosemide 40 MG/4 ML VIAL IVP SCH (07:56)
[2016-07-07] MEDS: Gabapentin 100 MG CAPSULE PO SCH (07:56)
[2016-07-07] MEDS: Gentamicin OPTH Soln 5 ML BOTTLE BOTH EYES SCH (07:59)
[2016-07-07] MEDS: Budesonide/Formoterol 160/4.5 MDI IH SCH (08:20)
--- NOTE | 2016-07-07 09:48 | Discharge Summary ---
<Yazmin Robbins - Last Filed: 07/07/16 14:52> Date of Encounter: 07/07/16 Time of Encounter: 08:30 - Discharge Diagnosis (1) Acute and chronic respiratory failure ([id number]) Priority: Primary Status: Acute Qualifiers: Respiratory failure complication: hypoxia and hypercapnia Qualified Code(s) : J96.21 - Acute and chronic respiratory failure with hypoxia; J96.22 - Acute and chronic respiratory failure with hypercapnia (2) Diastolic CHF, acute on chronic Priority: Primary Status: Acute (3) COPD (chronic obstructive pulmonary disease) Priority: Secondary Status: Chronic Qualifiers: COPD type: unspecified COPD Qualified Code(s): J44.9 - Chronic obstructive pulmonary disease, unspecified (4) VINCE treated with BiPAP Priority: Secondary Status: Chronic (5) Conjunctivitis of right eye Priority: Secondary Status: Acute Qualifiers: Conjunctivitis type: acute Acute conjunctivitis type: unspecified Qualified Code(s): H10.31 - Unspecified acute conjunctivitis, right eye (6) Subconjunctival hemorrhage of left eye Priority: Secondary Status: Acute (7) Parkinson disease Priority: Secondary Status: Chronic - Discharge Medications Prescriptions: Gentamicin OPTH Soln 1 drop BOTH EYES QID #1 bottle Home Medications: Calcium Carbonate/Vitamin D3 [Calcium 500-Vit D3 400 Tablet] 1 tab PO BID [History] Clopidogrel [Plavix] 75 mg PO DAILY 10/01/14 [History] Cyanocobalamin (B-12) 1,000 mcg PO DAILY 10/01/14 [History] Docusate Sodium [Colace] 100 mg PO BID 10/01/14 [History] Ferrous Sulfate 325 mg PO BID 10/01/14 [History] Folic Acid 1 mg PO DAILY 10/01/14 [History] Pramipexole [Mirapex] 1 mg PO BID 10/01/14 [History] Sennosides [Senna] 8.6 mg PO BID 10/01/14 [History] Simvastatin [Zocor] 20 mg PO HS 10/01/14 [History] Trihexyphenidyl [Artane] 2 mg PO TID 10/01/14 [History] Budesonide/Formoterol 160/4.5 [Symbicort 160/4.5] 2 puff IH BIDR 03/24/15 [ History] Omeprazole [PriLOSEC] 20 mg PO DAILY 05/23/15 [History] Tiotropium [Spiriva] 18 mcg IH DAILY 05/23/15 [History] Acetaminophen [Tylenol] 650 mg PO Q6HR PRN 07/02/16 [History] Albuterol Neb [Proventil Neb] 2.5 mg IH Q6H PRN 07/02/16 [History] Albuterol Sulfate [Albuterol Inhaler] 2 puff IH Q4H PRN 07/02/16 [History] Allopurinol [Zyloprim 100 MG] 100 mg PO DAILY 07/02/16 [History] Ammonium Lactate 1 appl TP BID PRN 07/02/16 [History] Azithromycin [Zithromax] 250 mg PO MOWEFR 07/02/16 [History] Bisacodyl [Dulcolax] 10 mg RC DAILY PRN 07/02/16 [History] Gabapentin [Neurontin] 100 mg PO TID 07/02/16 [History] Lidocaine 4% CRM (LMX) [Lmx 4] 1 appl TP TID PRN 07/02/16 [History] Melatonin 3 mg PO HS 07/02/16 [History] Polyethylene Glycol 3350 [Smoothlax] 17 gm PO DAILY PRN 07/02/16 [History] Potassium Chloride [K-Tab ER] 20 meq PO DAILY 07/02/16 [History] Sod Chloride/B-6/Zinc Acet/Ca [Wound Cleanser] 2 - 3 spray IR AD 07/02/16 [ History] Spironolactone [Aldactone] 25 mg PO DAILY 07/02/16 [History] Torsemide [Demadex] 20 mg PO BID 07/02/16 [History] Gentamicin OPTH Soln 1 drop BOTH EYES QID #1 bottle 07/07/16 [Rx] Allergies/Adverse Reactions: Allergies spironolactone Allergy (Mild, Verified 07/02/16 14:10) Hives hydrochlorothiazide Allergy (Verified 07/02/16 14:10) Rash Date of admission: 07/03/16 01:41 [facility] Consults: 07/03/16 08:12 Consult to Occupational Therapy [CONS] Routine Comment: Evaluate, develop and implement POC Reason for Consult: weakness Consult to Physical Therapy [CONS] Routine Comment: Evaluate, develop and implement POC Reason for Consult: weakness 07/03/16 15:38 Consult to Glove Stitcher [CONS] Routine Reason for SW Consult: PT/OT recommending SNF Discharging clinician: Yazmin Robbins Anticipated date of discharge: 07/07/16 - Patient Status Disposition: Transfer [facility] Condition: Fair Functional capacity at discharge: uses cane/walker Overall status at discharge: patient is progressing back to baseline - Discharge Instructions Instructions: Gentamicin (Into the eye), Heart Failure (DC), Acute Respiratory Distress Syndrome (DC), Conjunctivitis (DC), Conjunctivitis (GEN), Chronic Obstructive Pulmonary Disease (DC) Follow Up [facility]: [facility] [Primary Care Provider[facility] - (within a week after discharge.) Loc Branch, [Non-Partnered Physician] - 07/09/16 11:30 am (For right conjunctivitis. Case has been discussed with Dr. Branch. Please schedule an appointment within a week. ) Additional Instructions: Please follow up with Dr. Loc Branch of Opthamology within a week for your eye pain and redness. Please continue the prescribed gentamicin eye drops until seen by Dr. Branch. Please follow up with your primary care provider at [place] within a week regarding your hospitalization and flexed neck problem. - Diet and Activity Activity: as per physical therapy Diet: low fat, low cholesterol, low salt diet, other (1.5 L of fluid restriction ) Hospital course: Mr. Salcido is a 66 year old male with PMH of HTN, COPD, sleep apnea on BiPAP at home, CKD, aortic stenosis s/p TAVR 2014 and CAD. Patient presented to [place] with worsening shortness of breath and bilateral lower extremity swelling. Patient was noted to have troponin 0.04 and ABG showing pH 7.33, pCO2 71 and pO2 56. CXR showed pulmonary venous congestion. Patient was transferred and admitted to [facility] for acute hypoxic and hypercapnic respiratory failure. Patient was started on Echo on 07/03/16 shows LVEF 65-70% with mild diastolic dysfunction and a bioprosthetic aortic valve without aortic regurgitation. Patient was started on IV Lasix while continuing Aldactone and his respiratory status continues to improve since admission. Patient was also noted to have subconjunctival hemorrhage of left eye and possible conjunctivitis of right eye but no reported vision deficit. Patient was started on gentamicin eye drop and case was discussed with Dr. Loc Branch of Opthamology, who recommends outpatient referral to his clinic after discharge for further evaluation. Given patient clinically improves with negative 5 L removed since admission and remains hemodynamically stable, okay to discharge patient to [place] inpatient rehab for further PT/OT as recommended. Patient will continue his gentamicin eye drop until being seen by Dr. Branch in his clinic at 11:30 am on 07/09/16. Patient is also instructed to follow up with his PCP at [place] within a week regarding his hospitalization and neck problem. - Time Spent with Patient Total time spent providing and/or coordinating discharge services: Greater than 30 minutes - Constitutional Vitals: Temp Pulse Resp BP Pulse Ox 97.9 F 81 20 141/78 96 07/07/16 08:58 07/07/16 08:58 07/07/16 08:58 07/07/16 08:58 07/07/16 08:58 General appearance: Present: cooperative, A&O X 3, morbidly obese, no acute distress, answers questions appropriately - Head Head exam: Present: atraumatic, normocephalic - Eye Eye exam: Present: EOMI, PERRL, sclera anicteric Additional comments: Subconjunctival hemorrhage of medial aspect of bilateral eyes, with the left more significant than the right. Right eye pain especially when patient looks downward. - Neck Neck exam general surgery: Present: supple, trachea midline. Absent: lymphadenopathy - Respiratory Respiratory exam: Present: decreased breath sounds. Absent: accessory muscle use, rales, rhonchi, wheezes - Cardiovascular Cardiovascular exam: Present: RRR, +S1, +S2. Absent: diastolic murmur, gallop, rubs, systolic murmur - GI/Abdominal GI/Abdominal exam: Present: normal bowel sounds, soft, no peritoneal signs. Absent: tenderness - Extremities Exam Extremities exam: Present: warm, radial pulses palpable and symetrical. Absent : calf tenderness, cyanotic Additional comments: Bilateral lower extremity pitting edema, slightly better compared to yesterday. - Neurological Exam Neurological exam: Present: CN II-XII intact, oriented X3, no focal deficits. Absent: pronater drift, facial droop, speech deficit - Skin Skin exam: Present: dry, intact, warm <Elise,Aryan P - Last Filed: 07/07/16 18:39> Date of Encounter: 07/07/16 Date of admission: 07/03/16 01:41 [facility] physician[facility] Consults: 07/03/16 08:12 Consult to Occupational Therapy [CONS] Routine Comment: Evaluate, develop and implement POC Reason for Consult: weakness Consult to Physical Therapy [CONS] Routine Comment: Evaluate, develop and implement POC Reason for Consult: weakness 07/03/16 15:38 Consult to Glove Stitcher [CONS] Routine Reason for SW Consult: PT/OT recommending SNF Hospital course: Mr. Salcido is a 66 year old male - Time Spent with Patient Total time spent providing and/or coordinating discharge services: - Constitutional Vitals: Temp Pulse Resp BP Pulse Ox 97.8 F 85 16 149/86 94 07/07/16 12:25 07/07/16 12:25 07/07/16 12:25 07/07/16 12:25 07/07/16 12:25 - Attending Attestation I examined this patient and my medical decision-making was reviewed with the [employer]/PA/Advanced Practice Nurse/Resident Physician. I agree with the documented findings, disposition and treatment plan as described except to the extent set forth below.
--- NOTE | 2016-07-07 10:10 | Physician Discharge Referral ---
<Yazmin Robbins - Last Filed: 07/07/16 10:08> [facility] Referral Info Transfer To: [facility] inpatient rehab Provider in Charge after Transfer: PCP Institutional Level of Care: Skilled - Diagnosis (1) Acute and chronic respiratory failure ([id number]) Priority: Primary Status: Acute (2) Diastolic CHF, acute on chronic Priority: Primary Status: Acute (3) COPD (chronic obstructive pulmonary disease) Priority: Secondary Status: Chronic (4) VINCE treated with BiPAP Priority: Secondary Status: Chronic (5) Conjunctivitis of right eye Priority: Secondary Status: Acute (6) Subconjunctival hemorrhage of left eye Priority: Secondary Status: Acute (7) Parkinson disease Priority: Secondary Status: Chronic - Transfer Medications Prescriptions: Gentamicin OPTH Soln 1 drop BOTH EYES QID #1 bottle Home Medications: Calcium Carbonate/Vitamin D3 [Calcium 500-Vit D3 400 Tablet] 1 tab PO BID [History] Clopidogrel [Plavix] 75 mg PO DAILY 10/01/14 [History] Cyanocobalamin (B-12) 1,000 mcg PO DAILY 10/01/14 [History] Docusate Sodium [Colace] 100 mg PO BID 10/01/14 [History] Ferrous Sulfate 325 mg PO BID 10/01/14 [History] Folic Acid 1 mg PO DAILY 10/01/14 [History] Pramipexole [Mirapex] 1 mg PO BID 10/01/14 [History] Sennosides [Senna] 8.6 mg PO BID 10/01/14 [History] Simvastatin [Zocor] 20 mg PO HS 10/01/14 [History] Trihexyphenidyl [Artane] 2 mg PO TID 10/01/14 [History] Budesonide/Formoterol 160/4.5 [Symbicort 160/4.5] 2 puff IH BIDR 03/24/15 [ History] Omeprazole [PriLOSEC] 20 mg PO DAILY 05/23/15 [History] Tiotropium [Spiriva] 18 mcg IH DAILY 05/23/15 [History] Acetaminophen [Tylenol] 650 mg PO Q6HR PRN 07/02/16 [History] Albuterol Neb [Proventil Neb] 2.5 mg IH Q6H PRN 07/02/16 [History] Albuterol Sulfate [Albuterol Inhaler] 2 puff IH Q4H PRN 07/02/16 [History] Allopurinol [Zyloprim 100 MG] 100 mg PO DAILY 07/02/16 [History] Ammonium Lactate 1 appl TP BID PRN 07/02/16 [History] Azithromycin [Zithromax] 250 mg PO MOWEFR 07/02/16 [History] Bisacodyl [Dulcolax] 10 mg RC DAILY PRN 07/02/16 [History] Gabapentin [Neurontin] 100 mg PO TID 07/02/16 [History] Lidocaine 4% CRM (LMX) [Lmx 4] 1 appl TP TID PRN 07/02/16 [History] Melatonin 3 mg PO HS 07/02/16 [History] Polyethylene Glycol 3350 [Smoothlax] 17 gm PO DAILY PRN 07/02/16 [History] Potassium Chloride [K-Tab ER] 20 meq PO DAILY 07/02/16 [History] Sod Chloride/B-6/Zinc Acet/Ca [Wound Cleanser] 2 - 3 spray IR AD 07/02/16 [ History] Spironolactone [Aldactone] 25 mg PO DAILY 07/02/16 [History] Torsemide [Demadex] 20 mg PO BID 07/02/16 [History] Gentamicin OPTH Soln 1 drop BOTH EYES QID #1 bottle 07/07/16 [Rx] Allergies/Adverse Reactions: Allergies spironolactone Allergy (Mild, Verified 07/02/16 14:10) Hives hydrochlorothiazide Allergy (Verified 07/02/16 14:10) Rash - Respiratory Orders Oxygen / L per min (1.5 L) Smoking Cessation: Smoking cessation has been advised. For more information, call the [place] Tobacco Quit Line at 8-818-QTLB-NOW. - Ancillary Orders May consult with Dentist, Protector Plate Attacher, Subway Guard PRN - Advance Directives Code Status: Full Code - Mobility Orders Ambulate - Rehabiliation Orders Rehab Potential: Fair Rehab Orders: ROM Exercises, Evaluation for Physical Therapy, Evaluation for Occupational Therapy - Diet Orders No Added Salt (SPENCER), Cardiac (Fluid restriction of 1.5 L.) CERTIFICATION: I certify that the transfer of the above named patient to an Extended Care Facility is necessary for the continuing treatment of the diagnosis listed. The above information is true and accurate reflection of patient's current condition. Confidential - Redisclosure prohibited without a patient's written consent. <Aryan Olivares P - Last Filed: 07/07/16 18:39> - Respiratory Orders Smoking Cessation: Smoking cessation has been advised. For more information, call the [place] Tobacco Quit Line at 6-248-RYGY-NOW. CERTIFICATION: I certify that the transfer of the above named patient to an Extended Care Facility is necessary for the continuing treatment of the diagnosis listed. The above information is true and accurate reflection of patient's current condition. Confidential - Redisclosure prohibited without a patient's written consent.
[2016-07-07 12:27] VITALS: BP 149/86
== END 2016-07-07 13:35 | DRG 291 ==
LOC: EMEROO 14:07 → 2NENU 14:07 → SUATTDRO 07-03 01:41
PROVIDERS: ADMIT Hospitalist; ATTEND Internal Medicine

== ENCOUNTER 2016-08-04 12:38 | Inpatient (IN) ==
[2016-08-04] MEDS ORDERED: Ipratropium/Albuterol Neb 3 ML IH ONE (12:49)
[2016-08-04 13:11] LABS: ABG HCO3 46.9 mEQ/L (21-27); ABG Oxygen Saturation 84 % (95-98); ABG PH 7.34 pH Units (7.32-7.45); ABG PO2 52 mmHg (85-104); ABG TCO2 49.6 mEq/L (20-26)
[2016-08-04 13:13] LABS: ABG PCO2 87 mmHg (35-45); Blood Gas FiO2 32 %
[2016-08-04 13:18] LABS: Basophils % 0.1 %; Eosinophils # 0.1 K/mcL (0.0-0.6); Hematocrit 38.2 % (37.5-50.1); Hemoglobin 11.4 g/dL (12.9-16.9); Immature Granulocytes % 0.5 % (0-4); Immature Platelets 5.8 % (1.1-6.1); Lymphocytes # 0.7 K/mcL (0.6-4.6); Lymphocytes % 7.4 %; Mean Corpuscular HGB Conc 29.8 g/dL (31.6-35.5); Mean Corpuscular Hemoglobin 28.8 pg (28.0-33.3); Mean Corpuscular Volume 96.5 fL (83.0-100.0); Mean Platelet Volume 10.1 fL (9.4-12.4); Monocytes # 0.6 K/mcL (0.0-1.3); Monocytes % 6.4 %; Neutrophils # 7.9 K/mcL (1.6-8.9); Platelet Count 144 K/mcL (140-400); Red Blood Count 3.96 M/mcL (4.19-5.50); Red Cell Distribution Width 15.7 % (11.5-14.5); Segmented Neutrophils % 84.6 %
[2016-08-04 13:24] LABS: INR 1.2; Prothrombin Time 12.5 Seconds (9.4-12.1)
[2016-08-04 13:30] LABS: BUN/Creatinine Ratio 23 (6-26); Blood Urea Nitrogen 27 mg/dL (8-26); Carbon Dioxide 38 mEq/L (19-29); Chloride 101 mEq/L (98-109); Glucose 100 mg/dL (70-99); Osmolality,Calculated 303 (280-300); Potassium 4.2 mEq/L (3.5-4.5); Sodium 144 mEq/L (136-145); eGFR For African Americans > 60 (> 60); eGFR For Non-African Americans > 60 (> 60)
--- NOTE | 2016-08-04 14:02 | Emergency Department Note ---
Disposition Clinical Impression: Acute and chronic respiratory failure, CO2 retention Disposition: Admitted As Inpatient Condition: Fair [facility] Care Provider[facility] - Forms: ED Satisfaction Letter Time of Disposition: 14:08 SOB HPI - General Chief Complaint: ED Shortness of Breath/Dyspnea Stated Complaint: DIAZ Time Seen by Provider: 08/04/16 12:42 Source: patient, EMS Nursing Notes Reviewed: Yes Vital Signs Reviewed: Yes - History of Present Illness 66-year-old male process emergency room for shortness of breath. Patient has a long-standing history of COPD and respiratory failure. Patient wears BiPAP when he sleeps at night and during the day when he sleeps. Patient also wears home oxygen. He went to a follow-up appointment today to the [facility] who noticed pulse ox to be low in the 60s and sent into the ER. He was placed on BiPAP from the ambulance and brought to the ER. Patient's denies any chest pain. No fevers. States his legs are always chronically swollen like they are today. He think appointment with all his medications. He states he has been coughing up blood at times. He does take Coumadin for a previous valve replacement. He has no history of coronary disease that he had mentioned. Pt Subjective Complaint: shortness of breath Onset (ago): day(s) Context: smoke/fume exposure Severity: moderate Consistency/Duration: constant Improves with: nothing Worsens with: lying flat, exertion, movement Known history of: COPD, congestive heart failure Associated symptoms: Reports: cough. Denies: chest pain Treatment prior to arrival: NIPPV Cough present: Yes Cough Description: Involuntary Cough Frequency: Intermittent Sputum production: Yes Sputum Amount: Small Sputum Color: White - Related Data Home Medications Medication Instructions Recorded Confirmed Calcium Carbonate/Vitamin D3 1 tab PO BID 10/01/14 07/02/16 [Calcium 500-Vit D3 400 Tablet] Clopidogrel [Plavix] 75 mg PO DAILY 10/01/14 07/02/16 Cyanocobalamin (B-12) 1,000 mcg PO DAILY 10/01/14 07/02/16 Docusate Sodium [Colace] 100 mg PO BID 10/01/14 07/02/16 Ferrous Sulfate 325 mg PO BID 10/01/14 07/02/16 Folic Acid 1 mg PO DAILY 10/01/14 07/02/16 Pramipexole [Mirapex] 1 mg PO BID 10/01/14 07/02/16 Sennosides [Senna] 8.6 mg PO BID 10/01/14 07/02/16 Simvastatin [Zocor] 20 mg PO HS 10/01/14 07/02/16 Trihexyphenidyl [Artane] 2 mg PO TID 10/01/14 07/02/16 Budesonide/Formoterol 160/4.5 2 puff IH BIDR 03/24/15 07/02/16 [Symbicort 160/4.5] Omeprazole [PriLOSEC] 20 mg PO DAILY 05/23/15 07/02/16 Tiotropium [Spiriva] 18 mcg IH DAILY 05/23/15 07/02/16 Acetaminophen [Tylenol] 650 mg PO Q6HR PRN 07/02/16 07/02/16 Albuterol Neb [Proventil Neb] 2.5 mg IH Q6H PRN 07/02/16 07/02/16 Albuterol Sulfate [Albuterol 2 puff IH Q4H PRN 07/02/16 07/02/16 Inhaler] Allopurinol [Zyloprim 100 MG] 100 mg PO DAILY 07/02/16 07/02/16 Ammonium Lactate 1 appl TP BID PRN 07/02/16 07/02/16 Azithromycin [Zithromax] 250 mg PO MOWEFR 07/02/16 07/02/16 Bisacodyl [Dulcolax] 10 mg RC DAILY PRN 07/02/16 07/02/16 Gabapentin [Neurontin] 100 mg PO TID 07/02/16 07/02/16 Lidocaine 4% CRM (LMX) [Lmx 4] 1 appl TP TID PRN 07/02/16 07/02/16 Melatonin 3 mg PO HS 07/02/16 07/02/16 Polyethylene Glycol 3350 17 gm PO DAILY PRN 07/02/16 07/02/16 [Smoothlax] Potassium Chloride [K-Tab ER] 20 meq PO DAILY 07/02/16 07/02/16 Sod Chloride/B-6/Zinc Acet/Ca 2 - 3 spray IR AD 07/02/16 07/02/16 [Wound Cleanser] Spironolactone [Aldactone] 25 mg PO DAILY 07/02/16 07/02/16 Torsemide [Demadex] 20 mg PO BID 07/02/16 07/02/16 Previous Rx's Medication Instructions Recorded Gentamicin OPTH Soln 1 drop BOTH EYES QID #1 bottle 07/07/16 Allergies Allergy/AdvReac Type Severity Reaction Status Date / Time spironolactone Allergy Mild Hives Verified 07/18/16 23:25 hydrochlorothiazide Allergy Rash Verified 07/18/16 23:25 Constitutional: Reports: weakness Cardiovascular: Reports: dyspnea on exertion. Denies: chest pain, palpitations Respiratory: Reports: cough, wheezes Gastrointestinal: Reports: as per HPI Genitourinary: Reports: as per HPI Musculoskeletal: Reports: as per HPI Integumentary: Reports: as per HPI Neurological: Reports: as per HPI Psychiatric: Reports: as per HPI Endocrine: Reports: as per HPI Hematological/Lymphatic: Reports: as per HPI Past Medical History - Past Medical History Medical history: Reports: cancer, CHF, COPD, hyperlipidemia, hypertension, renal disease, valvular heart disease, other Surgical history: Reports: other Psychiatric history: Reports: no psych history, panic disorder, PTSD - Social History Smoking Status: Former smoker Smokeless Tobacco Status: No Alcohol use: Reports: none Drug use: Reports: none Physical Exam - General General appearance: alert, in distress - Head Head exam: atraumatic, normocephalic - Neck Neck exam: Present: normal inspection - Chest Chest inspection: Present: normal inspection - Respiratory Respiratory exam: Present: respiratory distress, other (Decreased breath sounds in the bases bilaterally) - Cardiovascular Cardiovascular exam: Present: regular rate, normal rhythm - Abdominal Exam Abdominal exam: Present: soft, normal bowel sounds. Absent: tenderness - Extremities Exam Extremities exam: Present: pedal edema (Significant pedal edema in the lower extremities bilaterally. Symmetrical in nature.) - Back Exam Back exam: Present: normal inspection - Neurological Exam Neurological exam: Present: alert, oriented X3 - Psychiatric Psychiatric exam: Present: normal affect, normal mood - Skin Skin exam: Present: warm, dry, intact Course Vital Signs Temperature 98.7 F 08/04/16 12:41 Pulse Rate 91 08/04/16 12:41 Respiratory Rate 16 08/04/16 12:41 Blood Pressure 112/74 08/04/16 12:41 O2 Sat by Pulse Oximetry 86 08/04/16 12:41 Temperature 98.7 F 08/04/16 12:41 Pulse Rate 87 08/04/16 13:45 Respiratory Rate 20 08/04/16 13:45 Blood Pressure 107/93 08/04/16 13:45 O2 Sat by Pulse Oximetry 95 08/04/16 13:45 Oxygen Delivery Oxygen Delivery Nasal Cannula Shortness of Breath/Dyspnea - MDM Narrative Medical decision making narrative: Patient's PCO2 found to be in the high 80s. Patient has been there in the past and in fact seems to be running in the 80s quite frequently. I feel a lot of this is secondary to his noncompliance with his BiPAP machine as well as his body habitus. His x-ray was read as possible CHF however his BNP is normal. He has arty on Demadex twice daily. There has been no fevers here. His EKG did not show any significant findings either. I spoke with the hospitalist will admit the patient for observation. - Medical Records Medical records reviewed: Yes I reviewed the patient's medical records. - Lab Data Lab results reviewed: Yes I reviewed the patient's lab results. Result diagrams: 08/04/16 13:09 08/04/16 13:09 Lab Results 08/04/16 08/04/16 08/04/16 Range/Units 13:07 13:09 13:09 WBC 9.3 (4.3-11.1) K/mcL RBC 3.96 L (4.19-5.50) M/mcL Hgb 11.4 L (12.9-16.9) g/dL Hct 38.2 (37.5-50.1) % MCV 96.5 (83.0-100.0) fL MCH 28.8 (28.0-33.3) pg MCHC 29.8 L (31.6-35.5) g/dL RDW 15.7 H (11.5-14.5) % Plt Count 144 (140-400) K/mcL MPV 10.1 (9.4-12.4) fL Immature Gran % 0.5 (0-4) % Seg Neutrophils % 84.6 % Lymphocytes % 7.4 % Monocytes % 6.4 % Eosinophils % 1.0 % Basophils % 0.1 % Neutrophils # 7.9 (1.6-8.9) K/mcL Lymphocytes # 0.7 (0.6-4.6) K/mcL Monocytes # 0.6 (0.0-1.3) K/mcL Eosinophils # 0.1 (0.0-0.6) K/mcL Basophils # 0.0 (0.0-0.2) K/mcL Immature Plt Fraction 5.8 (1.1-6.1) % PT (9.4-12.1) Seconds INR APTT (26.0-36.0) Seconds ABG pH 7.34 (7.32-7.45) pH Units ABG pCO2 87 H* (35-45) mmHg ABG pO2 52 L (85-104) mmHg ABG HCO3 46.9 H (21-27) mEQ/L ABG Total CO2 49.6 H (20-26) mEq/L ABG O2 Saturation 84 L (95-98) % ABG Base Excess 17.0 H (-2.0 to 3.0) mEq/L Blood Gas Modality NC Inspired O2 32 % Sodium 144 (136-145) mEq/L Potassium 4.2 (3.5-4.5) mEq/L Chloride 101 (98-109) mEq/L Carbon Dioxide 38 H (19-29) mEq/L BUN 27 H (8-26) mg/dL Creatinine 1.20 (0.72-1.25) mg/dL Est GFR ( Amer) > 60 (> 60) Est GFR (Non-Af Amer) > 60 (> 60) BUN/Creatinine Ratio 23 (6-26) Glucose 100 H (70-99) mg/dL Calculated Osmolality 303 H (280-300) Lactic Acid (0.5-2.2) mmol/L Calcium 9.0 (8.6-10.8) mg/dL Troponin I (0-0.03) ng/mL B-Natriuretic Peptide (0-100) pg/mL 08/04/16 08/04/16 08/04/16 Range/Units 13:09 13:09 13:09 WBC (4.3-11.1) K/mcL RBC (4.19-5.50) M/mcL Hgb (12.9-16.9) g/dL Hct (37.5-50.1) % MCV (83.0-100.0) fL MCH (28.0-33.3) pg MCHC (31.6-35.5) g/dL RDW (11.5-14.5) % Plt Count (140-400) K/mcL MPV (9.4-12.4) fL Immature Gran % (0-4) % Seg Neutrophils % % Lymphocytes % % Monocytes % % Eosinophils % % Basophils % % Neutrophils # (1.6-8.9) K/mcL Lymphocytes # (0.6-4.6) K/mcL Monocytes # (0.0-1.3) K/mcL Eosinophils # (0.0-0.6) K/mcL Basophils # (0.0-0.2) K/mcL Immature Plt Fraction (1.1-6.1) % PT (9.4-12.1) Seconds INR APTT (26.0-36.0) Seconds ABG pH (7.32-7.45) pH Units ABG pCO2 (35-45) mmHg ABG pO2 (85-104) mmHg ABG HCO3 (21-27) mEQ/L ABG Total CO2 (20-26) mEq/L ABG O2 Saturation (95-98) % ABG Base Excess (-2.0 to 3.0) mEq/L Blood Gas Modality Inspired O2 % Sodium (136-145) mEq/L Potassium (3.5-4.5) mEq/L Chloride (98-109) mEq/L Carbon Dioxide (19-29) mEq/L BUN (8-26) mg/dL Creatinine (0.72-1.25) mg/dL Est GFR ( Amer) (> 60) Est GFR (Non-Af Amer) (> 60) BUN/Creatinine Ratio (6-26) Glucose (70-99) mg/dL Calculated Osmolality (280-300) Lactic Acid 0.6 (0.5-2.2) mmol/L Calcium (8.6-10.8) mg/dL Troponin I 0.02 (0-0.03) ng/mL B-Natriuretic Peptide 30 (0-100) pg/mL 08/04/16 Range/Units 13:09 WBC (4.3-11.1) K/mcL RBC (4.19-5.50) M/mcL Hgb (12.9-16.9) g/dL Hct (37.5-50.1) % MCV (83.0-100.0) fL MCH (28.0-33.3) pg MCHC (31.6-35.5) g/dL RDW (11.5-14.5) % Plt Count (140-400) K/mcL MPV (9.4-12.4) fL Immature Gran % (0-4) % Seg Neutrophils % % Lymphocytes % % Monocytes % % Eosinophils % % Basophils % % Neutrophils # (1.6-8.9) K/mcL Lymphocytes # (0.6-4.6) K/mcL Monocytes # (0.0-1.3) K/mcL Eosinophils # (0.0-0.6) K/mcL Basophils # (0.0-0.2) K/mcL Immature Plt Fraction (1.1-6.1) % PT 12.5 H (9.4-12.1) Seconds INR 1.2 APTT 31.0 (26.0-36.0) Seconds ABG pH (7.32-7.45) pH Units ABG pCO2 (35-45) mmHg ABG pO2 (85-104) mmHg ABG HCO3 (21-27) mEQ/L ABG Total CO2 (20-26) mEq/L ABG O2 Saturation (95-98) % ABG Base Excess (-2.0 to 3.0) mEq/L Blood Gas Modality Inspired O2 % Sodium (136-145) mEq/L Potassium (3.5-4.5) mEq/L Chloride (98-109) mEq/L Carbon Dioxide (19-29) mEq/L BUN (8-26) mg/dL Creatinine (0.72-1.25) mg/dL Est GFR ( Amer) (> 60) Est GFR (Non-Af Amer) (> 60) BUN/Creatinine Ratio (6-26) Glucose (70-99) mg/dL Calculated Osmolality (280-300) Lactic Acid (0.5-2.2) mmol/L Calcium (8.6-10.8) mg/dL Troponin I (0-0.03) ng/mL B-Natriuretic Peptide (0-100) pg/mL - Radiology Data Radiology results reviewed: Yes I reviewed the patient's radiology results. - EKG Data EKG attestation: Yes I reviewed and interpreted this EKG. EKG results narrative: EKG shows a rate of 94. Normal sinus rhythm. Normal axis. All intervals are normal. Critical Care Time Critical Care Time: Yes Total Critical Care Time: 35 Attestation: Critical care time spent and medical management as well as BiPAP management for potential respiratory failure
[2016-08-04] MEDS ORDERED: methylPREDNISolone 125 MG/2 ML VIAL IVP ONE (16:17)
[2016-08-04] MEDS ORDERED: Naloxone 0.4 MG/ML INJ IVP PRN (16:20)
[2016-08-04] MEDS ORDERED: Ondansetron 4 MG/2 ML VIAL IVP PRN (16:20)
[2016-08-04] MEDS ORDERED: Ipratropium/Albuterol Neb 3 ML IH PRN (16:22)
[2016-08-04] MEDS ORDERED: Ammonium Lactate 30 APPL/225 GM BOTTLE TP PRN (16:23)
[2016-08-04] MEDS ORDERED: Bisacodyl 10 MG RECTAL SUPPOSITORY RC PRN (16:23)
[2016-08-04] MEDS ORDERED: Furosemide 40 MG/4 ML VIAL IVP ONE (16:26)
--- NOTE | 2016-08-04 16:38 | Internal Med History&Physical ---
Date of Encounter: 08/04/16 Time of Encounter: 16:33 Assessment and Plan (1) Acute and chronic respiratory failure with hypercapnia Current visit: Yes Status: Acute Likely secondary to noncompliance. Patient has chronic history of respiratory failure with hypercapnia requiring bipap support, however he has been noncompliant with using bipap support, which is consistent with current ABG findings COPD exacerbation secondary to noncompliance started systemic steroids, titrate therapy as per clinical response bronchodilator support Bipap support serial ABG as needed Monitor O2 saturation,goal O2 sat: 89-92% patient at high risk of intubation and has history of intubation in the past. (2) COPD with acute exacerbation Current visit: Yes Status: Acute as listed above (3) Morbid obesity Current visit: Yes Status: Chronic Qualifiers: Obesity type: unspecified obesity type Qualified Code(s): E66.01 - Morbid ( severe) obesity due to excess calories (4) CKD (chronic kidney disease), stage III Current visit: No Status: Chronic renal function at baseline continue to monitor (5) Diastolic CHF Current visit: No Status: Chronic no acute signs of CHF decompensation will continue home medications will give one time dose of Lasix 40mg iV at this time given current CXR findings Qualifiers: Congestive heart failure chronicity: chronic Qualified Code(s): I50.32 - Chronic diastolic (congestive) heart failure (6) DVT prophylaxis Current visit: No Status: Acute Heparin SQ (7) GERD (gastroesophageal reflux disease) Current visit: No Status: Chronic continue home medications Qualifiers: Esophagitis presence: without esophagitis Qualified Code(s): K21.9 - Gastro -esophageal reflux disease without esophagitis (8) HLD (hyperlipidemia) Current visit: No Status: Chronic continue home medications Qualifiers: Hyperlipidemia type: unspecified Qualified Code(s): E78.5 - Hyperlipidemia , unspecified (9) VINCE (obstructive sleep apnea) Current visit: No Status: Chronic bipap support (10) Hypertension Current visit: Yes Status: Chronic BP within acceptable range continue home meds Qualifiers: Hypertension type: essential hypertension Qualified Code(s): I10 - Essential (primary) hypertension Internal Medicine - H&P: HPI Chief complaint: shortness of breath Admitted From: Home Plans for Post Hospital Care: Home History of present illness: Mr. Salcido is a 66 year old male with PMH of COPD on LTOT, HTN, VINCE, morbid obesity, CAD, CHF who was admitted for acute respiratory distress secondary to COPD exacerbation. Patient is lethargic and not able to provide much history due to which information was obtained from the present at bedside. As per , patient has been getting short of breath for the last few days and has been refusing to use bipap at home. Upon arrival patient was noted to be in severe respiratory distress and was noted to have respiratory failure with hypercapnia. He was given IV steroids and bronchodilator support. Patient also has underlying history of CHF, no clinical signs of volume overload present however CXR findings consistent with vascular congestion due to which one time dose of Lasix 40mg iV is to be given. Pt is currently saturating well on bipap. He is somnolent but arousable. Unable to obtain ROS given drowsy mental status Code status discussed with , patient wishes to be full code. Past Med Surg Social Fam HX - Past Medical History Medical history: CHF, COPD, hyperlipidemia, hypertension, renal disease, valvular heart disease, other Psychiatric history: panic disorder, PTSD - Past Surgical History Surgical History: appendectomy, other - Social History Smoking Status: Former smoker Smokeless Tobacco Status: No Alcohol use: none Drug use: none - Family History Mother Family Member Ethnicity: Non- Living Status: Hx Family Respiratory Disorders: No Hx Family Cancer: No Hx Family GI Disorders: No Hx Family Endocrine Disorder: No Hx Family Neuromuscular Disorders: No Hx Family Neurologic Disorders: Yes (CVA.) Hx Family HEENT Disorders: No Hx Family Autoimmune Disorders: No Internal Medicine - H&P: Meds Calcium Carbonate/Vitamin D3 [Calcium 500-Vit D3 400 Tablet] 1 tab PO BID [History] Clopidogrel [Plavix] 75 mg PO DAILY 10/01/14 [History] Cyanocobalamin (B-12) 1,000 mcg PO DAILY 10/01/14 [History] Docusate Sodium [Colace] 100 mg PO BID 10/01/14 [History] Ferrous Sulfate 325 mg PO BID 10/01/14 [History] Folic Acid 1 mg PO DAILY 10/01/14 [History] Pramipexole [Mirapex] 1 mg PO BID 10/01/14 [History] Sennosides [Senna] 8.6 mg PO BID 10/01/14 [History] Simvastatin [Zocor] 20 mg PO HS 10/01/14 [History] Trihexyphenidyl [Artane] 2 mg PO TID 10/01/14 [History] Budesonide/Formoterol 160/4.5 [Symbicort 160/4.5] 2 puff IH BID 03/24/15 [ History] Omeprazole [PriLOSEC] 20 mg PO DAILY 05/23/15 [History] Tiotropium [Spiriva] 18 mcg IH DAILY 05/23/15 [History] Acetaminophen [Tylenol] 650 mg PO Q6HR PRN 07/02/16 [History] Albuterol Neb [Proventil Neb] 2.5 mg IH Q6H PRN 07/02/16 [History] Albuterol Sulfate [Albuterol Inhaler] 2 puff IH Q4H PRN 07/02/16 [History] Allopurinol [Zyloprim 100 MG] 100 mg PO BID 07/02/16 [History] Ammonium Lactate 1 appl TP BID PRN 07/02/16 [History] Bisacodyl [Dulcolax] 10 mg RC DAILY PRN 07/02/16 [History] Gabapentin [Neurontin] 100 mg PO TID 07/02/16 [History] Lidocaine 4% CRM (LMX) [Lmx 4] 1 appl TP TID PRN 07/02/16 [History] Melatonin 3 mg PO HS 07/02/16 [History] Polyethylene Glycol 3350 [Smoothlax] 17 gm PO DAILY PRN 07/02/16 [History] Potassium Chloride [K-Tab ER] 20 meq PO DAILY 07/02/16 [History] Sod Chloride/B-6/Zinc Acet/Ca [Wound Cleanser] 2 - 3 spray IR AD 07/02/16 [ History] Spironolactone [Aldactone] 25 mg PO DAILY 07/02/16 [History] Torsemide [Demadex] 20 mg PO BID 07/02/16 [History] Allergies hydrochlorothiazide Allergy (Verified 07/18/16 23:25) Rash All Systems PM: A 10-system review of systems was performed and is negative for pertinent findings except as documented above in the HPI. - Constitutional Constitutional: as per HPI - Constitutional Vitals: Temp Pulse Resp BP Pulse Ox 98.1 F 86 19 100/65 97 08/04/16 15:29 08/04/16 15:29 08/04/16 15:29 08/04/16 15:29 08/04/16 14:13 General appearance: Present: A&O X 0 (respiratory distress, somnolent, arousable to tactile stimulatin), mild distress (respiratory distress), morbidly obese - Eye Eye exam: Present: conjuntiva pink, sclera anicteric - Respiratory Respiratory exam: Present: decreased breath sounds. Absent: rales, wheezes - Cardiovascular Cardiovascular exam: Present: RRR, +S1, +S2. Absent: diastolic murmur, gallop, rubs, systolic murmur - GI/Abdominal GI/Abdominal exam: Present: distended (obese), normal bowel sounds, soft. Absent: tenderness - Extremities Exam Extremities exam: Present: pedal edema, warm, radial pulses palpable and symetrical. Absent: calf tenderness - Neurological Exam Neurological exam: Present: alert (somnolent ) Internal Med - H&P Results - Labs CBC & Chem 7: 08/04/16 13:09 08/04/16 13:09 - VTE Documentation of Mechanical Device: Graduated compression elastic hosiery
[2016-08-04 17:14] LABS: ABG Base Excess 13.3 mEq/L (-2.0 to 3.0); ABG HCO3 42.8 mEQ/L (21-27); ABG Oxygen Saturation 93 % (95-98); ABG PH 7.31 pH Units (7.32-7.45); ABG PO2 73 mmHg (85-104); ABG TCO2 45.4 mEq/L (20-26)
[2016-08-04 17:18] LABS: Blood Gas FiO2 50 %
[2016-08-04 17:20] LABS: ABG PCO2 85 mmHg (35-45)
[2016-08-04] MEDS: *HR* Heparin 5,000 UNIT/ML VIAL SQ SCH (17:35)
[2016-08-04] MEDS: Gabapentin 100 MG CAPSULE PO SCH (19:27)
[2016-08-04] MEDS: Sennosides 8.6 MG TABLET PO SCH (19:27)
[2016-08-04] MEDS: Melatonin 3 MG TABLET PO SCH (19:28)
[2016-08-04] MEDS: Ipratropium/Albuterol Neb 3 ML IH SCH (21:00)
[2016-08-05] MEDS: Ipratropium/Albuterol Neb 3 ML IH SCH ×7 (00:05→23:33)
[2016-08-05] MEDS: *HR* Heparin 5,000 UNIT/ML VIAL SQ SCH ×2 (05:15→16:44)
[2016-08-05] MEDS: methylPREDNISolone 125 MG/2 ML VIAL IVP SCH ×4 (05:15→23:18)
[2016-08-05 07:59] LABS: BUN/Creatinine Ratio 23 (6-26); Blood Urea Nitrogen 28 mg/dL (8-26); Calcium 8.9 mg/dL (8.6-10.8); Carbon Dioxide 36 mEq/L (19-29); Chloride 100 mEq/L (98-109); Glucose 137 mg/dL (70-99); Magnesium 2.5 mg/dL (1.6-2.6); Osmolality,Calculated 302 (280-300); Phosphorous 3.5 mg/dL (2.3-4.7); Potassium 4.4 mEq/L (3.5-4.5); Sodium 142 mEq/L (136-145); eGFR For African Americans > 60 (> 60); eGFR For Non-African Americans 59 (> 60)
[2016-08-05 08:19] LABS: Basophils % 0.1 %; Hematocrit 39.3 % (37.5-50.1); Hemoglobin 11.7 g/dL (12.9-16.9); Immature Granulocytes % 0.4 % (0-4); Lymphocytes # 0.2 K/mcL (0.6-4.6); Lymphocytes % 3.3 %; Mean Corpuscular HGB Conc 29.8 g/dL (31.6-35.5); Mean Corpuscular Volume 97.3 fL (83.0-100.0); Mean Platelet Volume 11.5 fL (9.4-12.4); Monocytes # 0.1 K/mcL (0.0-1.3); Monocytes % 1.8 %; Neutrophils # 6.9 K/mcL (1.6-8.9); Platelet Count 145 K/mcL (140-400); Red Blood Count 4.04 M/mcL (4.19-5.50); Red Cell Distribution Width 15.2 % (11.5-14.5); Segmented Neutrophils % 94.4 %
[2016-08-05] MEDS ORDERED: Pantoprazole 40 MG VIAL IVP SCH (09:00)
[2016-08-05] MEDS: Folic Acid 1 MG TABLET PO SCH (09:08)
[2016-08-05] MEDS: Gabapentin 100 MG CAPSULE PO SCH ×3 (09:09→21:25)
[2016-08-05] MEDS: Sennosides 8.6 MG TABLET PO SCH ×2 (09:09→21:25)
[2016-08-05] MEDS: Cyanocobalamin (B-12) 1,000 MCG TABLET PO SCH (09:09)
[2016-08-05] MEDS: Spironolactone 25 MG TABLET PO SCH (09:09)
[2016-08-05] MEDS: Torsemide 20 MG TABLET PO SCH ×2 (09:09→16:35)
--- NOTE | 2016-08-05 09:53 | Internal Med Progress Note ---
<Kaleb Allred - Last Filed: 08/05/16 10:27> Date of Encounter: 08/05/16 Time of Encounter: 08:50 - Assessment and plan (1) Acute and chronic respiratory failure ([id number]) Current Visit: No Status: Acute Assessment and plan: Likely secondary to noncompliance. Patient has chronic history of respiratory failure with hypercapnia requiring bipap support, however he has been noncompliant with using bipap at home. Patient ABG taken at the time of admission supports this hypothesis. Will continue to support breathing as below. Patient does report having some hemoptysis today, but thinks that this is likely due to the chronic oxygen usage. CO2 narcosis secondary to noncompliance Continue solu-medrol Breathing treatment prn and scheduled Bipap compliance and support as needed Monitor O2 saturation,goal O2 sat: 89-92% patient at high risk of intubation and has history of intubation in the past Consider additional CTA Qualifiers: Respiratory failure complication: hypoxia and hypercapnia Qualified Code(s) : J96.21 - Acute and chronic respiratory failure with hypoxia; J96.22 - Acute and chronic respiratory failure with hypercapnia (2) CO2 narcosis Current Visit: No Status: Acute Assessment and plan: Likely from non-compliance with bipap at home Plan as above (3) COPD (chronic obstructive pulmonary disease) Current Visit: No Status: Chronic Assessment and plan: Plan as above Qualifiers: COPD type: unspecified COPD Qualified Code(s): J44.9 - Chronic obstructive pulmonary disease, unspecified (4) Acute encephalopathy Current Visit: No Status: Acute Assessment and plan: Patient acute encephalopathy likely due to CO2 narcosis Plan as above (5) VINCE treated with BiPAP Current Visit: No Status: Chronic Assessment and plan: Patient reports having difficulty with compliance with Bipap at home. He reports that he will pull his Bipap off at night and not know that he is doing it. His states that he will often have it off at 3am. Continue Bipap as needed Continue Bipap at night (6) CKD (chronic kidney disease), stage III Current Visit: No Status: Chronic Assessment and plan: CKD stage 3 appears stable continue to monitor renal function with daily labs (7) Diastolic CHF Current Visit: No Status: Chronic Assessment and plan: Not in exacerbation currently Continue home dose of torsemide 20 mg BID Continue home potassium of 20 mEq daily Qualifiers: Congestive heart failure chronicity: chronic Qualified Code(s): I50.32 - Chronic diastolic (congestive) heart failure (8) DVT prophylaxis Current Visit: No Status: Acute Assessment and plan: 5000 units heparin SQ BID (9) Morbid obesity Current Visit: Yes Status: Chronic Qualifiers: Obesity type: unspecified obesity type Qualified Code(s): E66.01 - Morbid ( severe) obesity due to excess calories - Subjective Interval history: Patient reports feeling somewhat improved today. He admits to not sleeping well last night, but feels more awake today. He is perfectly awake and oriented. He does report having a couple episodes of hemoptysis between yesterday and today, but thinks this is due to subliminal oxygen usage at home. Significant cough, shortness of breath, fever/chills, or changes sputum production. He reports having issues with compliance with his BiPAP at night, taking off in the middle the night and not knowing he does it. His states that she often wakes up at 2:00, 3:00, and later and he no longer has the BiPAP on. - Constitutional Vitals: Temp Pulse Resp BP Pulse Ox 97.6 F 72 16 105/65 93 08/05/16 06:55 08/05/16 06:55 08/05/16 06:55 08/05/16 06:55 08/05/16 06:55 General appearance: Present: cooperative, A&O X 3, morbidly obese, pleasant, no acute distress, obese, answers questions appropriately Exam: General: Cooperative, pleasant, no acute distress, alert and oriented 3, answers questions appropriately HEENT: Normocephalic, atraumatic, neck supple, trachea midline, Conjunctiva pink , sclera anicteric, EOMI, PERRL, oral mucosa moist, no orophargeal erythema or exudates Respiratory: No accessory muscle usage, diminished breath sounds bilaterally, no wheezes/rhonchi/rales Cardiovascular: Regular rate and rhythm, S1 and S2 present, 3/6 systolic murmur heard best at the right upper sternal border GI/abdominal: Nondistended, protuberant, nontender, soft, normal bowel sounds, no peritoneal signs, healing ecchymosis on left-sided chest Extremities: No calf tenderness, noncyanotic, bilateral compression stockings in place, mild pitted edema bilaterally in LE, warm, lower extremity pulses palpable and symmetrical, healing ecchymosis on shoulder, 4 cm long laceration covered with eschar on the dorsum of left hand Neurological: Alert and oriented 3, no facial droop, no focal deficits Skin: Dry, intact, normal color Internal Medicine: Result - Labs CBC & Chem 7: 08/05/16 07:31 08/05/16 07:31 Labs: Short CBC 08/05/16 Range/Units 07:31 WBC 7.4 (4.3-11.1) K/mcL Hgb 11.7 L (12.9-16.9) g/dL Hct 39.3 (37.5-50.1) % Plt Count 145 (140-400) K/mcL Neutrophils # 6.9 (1.6-8.9) K/mcL BMP 08/05/16 07:31 Sodium 142 Potassium 4.4 Chloride 100 Carbon Dioxide 36 H BUN 28 H Creatinine 1.22 Glucose 137 H Calcium 8.9 - ABG Interpretation ABG results: ABG ABG pH 7.31 pH Units (7.32-7.45) L 08/04/16 17:07 ABG pCO2 85 mmHg (35-45) H* 08/04/16 17:07 ABG pO2 73 mmHg (85-104) L 08/04/16 17:07 ABG O2 Saturation 93 % (95-98) L 08/04/16 17:07 PT/INR, D-dimer PT 12.5 Seconds (9.4-12.1) H 08/04/16 13:09 - VTE Documentation of Mechanical Device: Graduated compression elastic hosiery Consult Discharge Plan - Plan [facility]errals: [facility]Primary Care Provider[facility] - <Aryan Olivares P - Last Filed: 08/05/16 18:12> Date of Encounter: 08/05/16 - Constitutional Vitals: Temp Pulse Resp BP Pulse Ox 98.2 F 82 18 115/73 97 08/05/16 15:32 08/05/16 15:32 08/05/16 16:37 08/05/16 15:32 08/05/16 16:37 Internal Medicine: Result - Labs CBC & Chem 7: 08/05/16 07:31 08/05/16 07:31 Labs: Short CBC 08/05/16 Range/Units 07:31 WBC 7.4 (4.3-11.1) K/mcL Hgb 11.7 L (12.9-16.9) g/dL Hct 39.3 (37.5-50.1) % Plt Count 145 (140-400) K/mcL Neutrophils # 6.9 (1.6-8.9) K/mcL BMP 08/05/16 07:31 Sodium 142 Potassium 4.4 Chloride 100 Carbon Dioxide 36 H BUN 28 H Creatinine 1.22 Glucose 137 H Calcium 8.9 - ABG Interpretation ABG results: ABG ABG pH 7.31 pH Units (7.32-7.45) L 08/04/16 17:07 ABG pCO2 85 mmHg (35-45) H* 08/04/16 17:07 ABG pO2 73 mmHg (85-104) L 08/04/16 17:07 ABG O2 Saturation 93 % (95-98) L 08/04/16 17:07 PT/INR, D-dimer PT 12.5 Seconds (9.4-12.1) H 08/04/16 13:09 - Impressions Impressions Chest CTA 08/05/16 13:00 IMPRESSION: 1. Stable mild atherosclerotic disease of the thoracic aorta, with a stable 4.7 cm fusiform aneurysm of the ascending aorta, though no evidence of dissection. 2. Interval development of multifocal airspace consolidation within the right middle lobe and bilateral lower lobes, most likely representing multifocal pneumonia. 3. New trace bilateral pleural effusions. 4. Stable 5 mm right upper lobe pulmonary nodule. Further follow-up of this nodule is as suggested below. RECOMMENDATIONS: Fleischner Society guidelines for follow-up and management of incidentally detected pulmonary nodules: Single Solid Nodule: Nodule size less than 6 mm In a low-risk patient, no routine follow-up. In a high-risk patient, optional CT at 12 months. - Low risk patients include individuals with minimal or absent history of smoking and other known risk factors. - High risk patients include individuals with a history or smoking or known risk factors. Radiology 2017 http://pubs.rsna.org/doi/full/10.1148/radiol.4808111778 D/ / 08/05/2016 14:15:05 Tenzin Eisenberg MD / sera Interpreting Provider: Tenzin Eisenberg MD - Attending Attestation I examined this patient and my medical decision-making was reviewed with the QUALITY ASSURANCE ADVISOR/PA/Advanced Practice Nurse/Resident Physician. I agree with the documented findings, disposition and treatment plan as described except to the extent set forth below.
[2016-08-05] MEDS ORDERED: Cefepime HCl 2,000 MG in D5% in Water (Mini-Bag+) 100 ML IVPB SCH (16:00)
[2016-08-05] MEDS ORDERED: Vancomycin 2,000 MG in D5% in Water 250 ML IVPB SCH (16:00)
[2016-08-05] MEDS: Vancomycin 1,750 MG in D5% in Water 500 ML IVPB SCH (16:38)
[2016-08-05] MEDS: Levofloxacin 750 MG/150 ML 750 MG/150 ML BAG IVPB SCH (16:40)
[2016-08-05] MEDS: Melatonin 3 MG TABLET PO SCH (21:25)
[2016-08-05] MEDS: Piperacillin/Tazobactam 3.375 GM in D5% in Water (Mini-Bag+) 100 ML IVPB SCH (23:18)
[2016-08-06] MEDS: Vancomycin 1,750 MG in D5% in Water 500 ML IVPB SCH ×2 (03:19→18:00)
[2016-08-06] MEDS: Ipratropium/Albuterol Neb 3 ML IH SCH ×6 (04:02→23:05)
[2016-08-06 05:30] LABS: Basophils % 0.1 %; Hematocrit 36.3 % (37.5-50.1); Hemoglobin 10.8 g/dL (12.9-16.9); Immature Granulocytes % 0.4 % (0-4); Lymphocytes # 0.3 K/mcL (0.6-4.6); Lymphocytes % 2.4 %; Mean Corpuscular HGB Conc 29.8 g/dL (31.6-35.5); Mean Corpuscular Hemoglobin 28.9 pg (28.0-33.3); Mean Corpuscular Volume 97.1 fL (83.0-100.0); Mean Platelet Volume 10.4 fL (9.4-12.4); Monocytes # 0.2 K/mcL (0.0-1.3); Monocytes % 1.7 %; Neutrophils # 11.2 K/mcL (1.6-8.9); Platelet Count 139 K/mcL (140-400); Red Blood Count 3.74 M/mcL (4.19-5.50); Red Cell Distribution Width 14.9 % (11.5-14.5); Segmented Neutrophils % 95.4 %
[2016-08-06 05:44] LABS: BUN/Creatinine Ratio 22 (6-26); Blood Urea Nitrogen 29 mg/dL (8-26); Calcium 8.7 mg/dL (8.6-10.8); Carbon Dioxide 37 mEq/L (19-29); Chloride 97 mEq/L (98-109); Glucose 207 mg/dL (70-99); Magnesium 2.2 mg/dL (1.6-2.6); Osmolality,Calculated 302 (280-300); Potassium 4.3 mEq/L (3.5-4.5); Sodium 140 mEq/L (136-145); eGFR For African Americans > 60 (> 60); eGFR For Non-African Americans 53 (> 60)
[2016-08-06] MEDS: *HR* Heparin 5,000 UNIT/ML VIAL SQ SCH ×2 (05:44→18:09)
[2016-08-06] MEDS: Cyanocobalamin (B-12) 1,000 MCG TABLET PO SCH (08:27)
[2016-08-06] MEDS: methylPREDNISolone 125 MG/2 ML VIAL IVP SCH ×2 (08:27→17:37)
[2016-08-06] MEDS: Sennosides 8.6 MG TABLET PO SCH ×2 (08:27→21:59)
[2016-08-06] MEDS: Cholecalciferol (D-3) 1,000 UNIT TABLET PO SCH (08:27)
[2016-08-06] MEDS: Torsemide 20 MG TABLET PO SCH (08:27)
[2016-08-06] MEDS: Gabapentin 100 MG CAPSULE PO SCH ×3 (08:27→21:58)
[2016-08-06] MEDS: Folic Acid 1 MG TABLET PO SCH (08:27)
[2016-08-06] MEDS: Spironolactone 25 MG TABLET PO SCH (08:27)
[2016-08-06] MEDS: Piperacillin/Tazobactam 3.375 GM in D5% in Water (Mini-Bag+) 100 ML IVPB SCH ×2 (08:27→19:30)
--- NOTE | 2016-08-06 13:21 | Internal Med Progress Note ---
<Kaleb Allred - Last Filed: 08/06/16 13:15> Date of Encounter: 08/06/16 Time of Encounter: 08:55 - Assessment and plan (1) Acute and chronic respiratory failure ([id number]) Current Visit: No Status: Acute Assessment and plan: Patient found to have multifocal pneumonia, which is likely the cause of his hypoxia, but non-compliant with bipap could certainly be contributory. Patient has chronic history of respiratory failure with hypercapnia requiring bipap support, however he has been noncompliant with using bipap at home. Patient ABG taken at the time of admission supports this hypothesis. Will continue to support breathing as below. Patient does report having some hemoptysis, but thinks that this is likely due to the chronic oxygen usage. No PE seen on CTA CO2 narcosis secondary to pneumonia and noncompliance Patient started on Levaquin, Vancomycin, and Zosyn yesterday afternoon, today is day 2 Continue solu-medrol Breathing treatment prn and scheduled Bipap compliance and support as needed Monitor O2 saturation,goal O2 sat: 89-92% patient at high risk of intubation and has history of intubation in the past Qualifiers: Respiratory failure complication: hypoxia and hypercapnia Qualified Code(s) : J96.21 - Acute and chronic respiratory failure with hypoxia; J96.22 - Acute and chronic respiratory failure with hypercapnia (2) Pneumonia Current Visit: No Status: Acute Assessment and plan: Healthcare acquired given patient need of IV antibiotics Plan as above Qualifiers: Pneumonia type: due to unspecified organism Laterality: bilateral Lung location: unspecified part of lung Qualified Code(s): J18.9 - Pneumonia, unspecified organism (3) CO2 narcosis Current Visit: No Status: Acute Assessment and plan: Likely from pneumonia and non-compliance with bipap at home Plan as above (4) COPD (chronic obstructive pulmonary disease) Current Visit: No Status: Chronic Assessment and plan: Plan as above Qualifiers: COPD type: unspecified COPD Qualified Code(s): J44.9 - Chronic obstructive pulmonary disease, unspecified (5) Acute encephalopathy Current Visit: No Status: Acute Assessment and plan: Patient acute encephalopathy likely due to CO2 narcosis Plan as above (6) VINCE treated with BiPAP Current Visit: No Status: Chronic Assessment and plan: Patient reports having difficulty with compliance with Bipap at home. He reports that he will pull his Bipap off at night and not know that he is doing it. His states that he will often have it off at 3am. Continue Bipap as needed Continue Bipap at night (7) CKD (chronic kidney disease), stage III Current Visit: No Status: Chronic Assessment and plan: CKD stage 3 appears stable continue to monitor renal function with daily labs (8) Diastolic CHF Current Visit: No Status: Chronic Assessment and plan: Not in exacerbation currently Continue home dose of torsemide 20 mg BID Continue home potassium of 20 mEq daily Qualifiers: Congestive heart failure chronicity: chronic Qualified Code(s): I50.32 - Chronic diastolic (congestive) heart failure (9) DVT prophylaxis Current Visit: No Status: Acute Assessment and plan: 5000 units heparin SQ BID (10) Morbid obesity Current Visit: Yes Status: Chronic Qualifiers: Obesity type: unspecified obesity type Qualified Code(s): E66.01 - Morbid ( severe) obesity due to excess calories - Subjective Interval history: Patient reports feeling slightly better today, the cell complains of cough productive of bright red blood. He denies fever/chills, chest pain, and pain with inspiration. He thinks he did better with his bipap last night. CTA was performed yesterday that did not show any PE, but did show that there was a multifocal pneumonia. Given his recent IV antibiotics, he was started on empiric Levaquin, Vancomycin, and Zosyn - Constitutional Vitals: Temp Pulse Resp BP Pulse Ox 97.6 F 87 17 116/64 91 08/06/16 11:27 08/06/16 11:27 08/06/16 11:29 08/06/16 11:27 08/06/16 11:29 General appearance: Present: cooperative, A&O X 3, morbidly obese, pleasant, no acute distress, obese, answers questions appropriately Exam: General: Cooperative, pleasant, no acute distress, alert and oriented 3, answers questions appropriately HEENT: Normocephalic, atraumatic, neck supple, trachea midline, Conjunctiva pink , sclera anicteric, EOMI, PERRL, oral mucosa moist, no orophargeal erythema or exudates Respiratory: No accessory muscle usage, diminished breath sounds bilaterally, no wheezes/rhonchi/rales Cardiovascular: Regular rate and rhythm, S1 and S2 present, 3/6 systolic murmur heard best at the right upper sternal border GI/abdominal: Nondistended, protuberant, nontender, soft, normal bowel sounds, no peritoneal signs, healing ecchymosis on left-sided chest Extremities: No calf tenderness, noncyanotic, chronic skin changes in place in b /l LE, 1+ pitted edema bilaterally in LE, warm, lower extremity pulses palpable and symmetrical, healing ecchymosis on shoulder, 4 cm long laceration covered with eschar on the dorsum of left hand Neurological: Alert and oriented 3, no facial droop, no focal deficits Skin: Dry, intact, normal color Internal Medicine: Result - Labs CBC & Chem 7: 08/06/16 05:16 08/06/16 05:16 Labs: Short CBC 08/06/16 Range/Units 05:16 WBC 11.7 H D (4.3-11.1) K/mcL Hgb 10.8 L (12.9-16.9) g/dL Hct 36.3 L (37.5-50.1) % Plt Count 139 L (140-400) K/mcL Neutrophils # 11.2 H (1.6-8.9) K/mcL BMP 08/06/16 05:16 Sodium 140 Potassium 4.3 Chloride 97 L Carbon Dioxide 37 H BUN 29 H Creatinine 1.34 H Glucose 207 H Calcium 8.7 - ABG Interpretation ABG results: ABG ABG pH 7.31 pH Units (7.32-7.45) L 08/04/16 17:07 ABG pCO2 85 mmHg (35-45) H* 08/04/16 17:07 ABG pO2 73 mmHg (85-104) L 08/04/16 17:07 ABG O2 Saturation 93 % (95-98) L 08/04/16 17:07 PT/INR, D-dimer PT 12.5 Seconds (9.4-12.1) H 08/04/16 13:09 - Impressions Impressions Chest CTA 08/05/16 13:00 IMPRESSION: 1. Stable mild atherosclerotic disease of the thoracic aorta, with a stable 4.7 cm fusiform aneurysm of the ascending aorta, though no evidence of dissection. 2. Interval development of multifocal airspace consolidation within the right middle lobe and bilateral lower lobes, most likely representing multifocal pneumonia. 3. New trace bilateral pleural effusions. 4. Stable 5 mm right upper lobe pulmonary nodule. Further follow-up of this nodule is as suggested below. RECOMMENDATIONS: Fleischner Society guidelines for follow-up and management of incidentally detected pulmonary nodules: Single Solid Nodule: Nodule size less than 6 mm In a low-risk patient, no routine follow-up. In a high-risk patient, optional CT at 12 months. - Low risk patients include individuals with minimal or absent history of smoking and other known risk factors. - High risk patients include individuals with a history or smoking or known risk factors. Radiology 2017 http://pubs.rsna.org/doi/full/10.1148/radiol.7294825290 D/ / 08/05/2016 14:15:05 Tenzin Eisenberg MD / sera Interpreting Provider: Tenzin Eisenberg MD - VTE Documentation of Mechanical Device: Graduated compression elastic hosiery Consult Discharge Plan - Plan [facility]errals: [facility] [Primary Care Provider] - 08/20/16 9:15 am <Aryan Olivares P - Last Filed: 08/06/16 15:18> Date of Encounter: 08/06/16 - Constitutional Vitals: Temp Pulse Resp BP Pulse Ox 97.6 F 87 17 116/64 91 08/06/16 11:27 08/06/16 11:27 08/06/16 11:29 08/06/16 11:27 08/06/16 11:29 Internal Medicine: Result - Labs CBC & Chem 7: 08/06/16 05:16 08/06/16 05:16 Labs: Short CBC 08/06/16 Range/Units 05:16 WBC 11.7 H D (4.3-11.1) K/mcL Hgb 10.8 L (12.9-16.9) g/dL Hct 36.3 L (37.5-50.1) % Plt Count 139 L (140-400) K/mcL Neutrophils # 11.2 H (1.6-8.9) K/mcL BMP 08/06/16 05:16 Sodium 140 Potassium 4.3 Chloride 97 L Carbon Dioxide 37 H BUN 29 H Creatinine 1.34 H Glucose 207 H Calcium 8.7 - ABG Interpretation ABG results: ABG ABG pH 7.31 pH Units (7.32-7.45) L 08/04/16 17:07 ABG pCO2 85 mmHg (35-45) H* 08/04/16 17:07 ABG pO2 73 mmHg (85-104) L 08/04/16 17:07 ABG O2 Saturation 93 % (95-98) L 08/04/16 17:07 PT/INR, D-dimer PT 12.5 Seconds (9.4-12.1) H 08/04/16 13:09 - Impressions Impressions Chest CTA 08/05/16 13:00 IMPRESSION: 1. Stable mild atherosclerotic disease of the thoracic aorta, with a stable 4.7 cm fusiform aneurysm of the ascending aorta, though no evidence of dissection. 2. Interval development of multifocal airspace consolidation within the right middle lobe and bilateral lower lobes, most likely representing multifocal pneumonia. 3. New trace bilateral pleural effusions. 4. Stable 5 mm right upper lobe pulmonary nodule. Further follow-up of this nodule is as suggested below. RECOMMENDATIONS: Fleischner Society guidelines for follow-up and management of incidentally detected pulmonary nodules: Single Solid Nodule: Nodule size less than 6 mm In a low-risk patient, no routine follow-up. In a high-risk patient, optional CT at 12 months. - Low risk patients include individuals with minimal or absent history of smoking and other known risk factors. - High risk patients include individuals with a history or smoking or known risk factors. Radiology 2017 http://pubs.rsna.org/doi/full/10.1148/radiol.4829550550 D/ / 08/05/2016 14:15:05 Tenzin Eisenberg MD / sera Interpreting Provider: Tenzin Eisenberg MD - Attending Attestation I examined this patient and my medical decision-making was reviewed with the SENIOR BENEFITS SPECIALIST/PA/Advanced Practice Nurse/Resident Physician. I agree with the documented findings, disposition and treatment plan as described except to the extent set forth below. will cont present treatment.
[2016-08-06] MEDS: Levofloxacin 750 MG/150 ML 750 MG/150 ML BAG IVPB SCH (17:45)
[2016-08-06] MEDS: Melatonin 3 MG TABLET PO SCH (21:57)
[2016-08-07] MEDS: methylPREDNISolone 125 MG/2 ML VIAL IVP SCH ×3 (01:41→15:35)
[2016-08-07 04:14] LABS: Basophils % 0.1 %; Hematocrit 36.4 % (37.5-50.1); Hemoglobin 10.7 g/dL (12.9-16.9); Immature Granulocytes % 0.3 % (0-4); Lymphocytes # 0.3 K/mcL (0.6-4.6); Lymphocytes % 2.3 %; Mean Corpuscular HGB Conc 29.4 g/dL (31.6-35.5); Mean Corpuscular Hemoglobin 28.9 pg (28.0-33.3); Mean Corpuscular Volume 98.4 fL (83.0-100.0); Mean Platelet Volume 11.1 fL (9.4-12.4); Monocytes # 0.4 K/mcL (0.0-1.3); Monocytes % 2.9 %; Neutrophils # 11.4 K/mcL (1.6-8.9); Platelet Count 146 K/mcL (140-400); Segmented Neutrophils % 94.4 %
[2016-08-07] MEDS: Ipratropium/Albuterol Neb 3 ML IH SCH ×6 (04:17→23:56)
[2016-08-07] MEDS: Piperacillin/Tazobactam 3.375 GM in D5% in Water (Mini-Bag+) 100 ML IVPB SCH ×3 (04:28→20:45)
[2016-08-07] MEDS: *HR* Heparin 5,000 UNIT/ML VIAL SQ SCH ×2 (06:57→17:18)
[2016-08-07] MEDS: Spironolactone 25 MG TABLET PO SCH (09:38)
[2016-08-07] MEDS: Cholecalciferol (D-3) 1,000 UNIT TABLET PO SCH (09:38)
[2016-08-07] MEDS: Torsemide 20 MG TABLET PO SCH (09:39)
[2016-08-07] MEDS: Sennosides 8.6 MG TABLET PO SCH ×2 (09:39→20:44)
[2016-08-07] MEDS: Folic Acid 1 MG TABLET PO SCH (09:39)
[2016-08-07] MEDS: Cyanocobalamin (B-12) 1,000 MCG TABLET PO SCH (09:40)
[2016-08-07] MEDS: Gabapentin 100 MG CAPSULE PO SCH ×3 (09:40→20:44)
--- NOTE | 2016-08-07 11:10 | Internal Med Progress Note ---
<Kaleb Allred - Last Filed: 08/07/16 11:07> Date of Encounter: 08/07/16 Time of Encounter: 08:10 - Assessment and plan (1) Acute and chronic respiratory failure ([id number]) Current Visit: No Status: Acute Assessment and plan: Patient found to have multifocal pneumonia, which is likely the cause of his hypoxia and hemoptysis, but non-compliant with bipap could certainly be contributory. Patient has chronic history of respiratory failure with hypercapnia requiring bipap support, however he has been noncompliant with using bipap at home. Patient ABG taken at the time of admission supports this hypothesis. Will continue to support breathing as below. Patient reports having several episodes of hemoptysis, likely due to multifocal pneumonia. No PE seen on CTA CO2 narcosis secondary to pneumonia and noncompliance, now resolved Patient started on Levaquin, Vancomycin, and Zosyn yesterday afternoon, today is day 3 Continue solu-medrol Breathing treatment prn and scheduled Bipap compliance and support as needed Monitor O2 saturation,goal O2 sat: 89-92% patient at high risk of intubation and has history of intubation in the past Qualifiers: Respiratory failure complication: hypoxia and hypercapnia Qualified Code(s) : J96.21 - Acute and chronic respiratory failure with hypoxia; J96.22 - Acute and chronic respiratory failure with hypercapnia (2) Pneumonia Current Visit: No Status: Acute Assessment and plan: Healthcare acquired given patient need of IV antibiotics Plan as above Qualifiers: Pneumonia type: due to unspecified organism Laterality: bilateral Lung location: unspecified part of lung Qualified Code(s): J18.9 - Pneumonia, unspecified organism (3) CO2 narcosis Current Visit: No Status: Acute Assessment and plan: Likely from pneumonia and non-compliance with bipap at home Plan as above (4) COPD (chronic obstructive pulmonary disease) Current Visit: No Status: Chronic Assessment and plan: Plan as above Qualifiers: COPD type: unspecified COPD Qualified Code(s): J44.9 - Chronic obstructive pulmonary disease, unspecified (5) Acute encephalopathy Current Visit: No Status: Acute Assessment and plan: Patient acute encephalopathy likely due to CO2 narcosis Plan as above (6) VINCE treated with BiPAP Current Visit: No Status: Chronic Assessment and plan: Patient reports having difficulty with compliance with Bipap at home. He reports that he will pull his Bipap off at night and not know that he is doing it. His states that he will often have it off at 3am. Continue Bipap as needed Continue Bipap at night (7) CKD (chronic kidney disease), stage III Current Visit: No Status: Chronic Assessment and plan: CKD stage 3 appears stable continue to monitor renal function with daily labs (8) Diastolic CHF Current Visit: No Status: Chronic Assessment and plan: Not in exacerbation currently Continue home dose of torsemide 20 mg BID Continue home potassium of 20 mEq daily Qualifiers: Congestive heart failure chronicity: chronic Qualified Code(s): I50.32 - Chronic diastolic (congestive) heart failure (9) DVT prophylaxis Current Visit: No Status: Acute Assessment and plan: 5000 units heparin SQ BID (10) Morbid obesity Current Visit: Yes Status: Chronic Qualifiers: Obesity type: unspecified obesity type Qualified Code(s): E66.01 - Morbid ( severe) obesity due to excess calories - Subjective Interval history: Patient reports doing well this morning. He states his last episode of hemoptysis was last night. He continues to deny fever and chills, continues to deny chest pain. Appetite is good with no nausea or vomiting. Still on a significant amount of supplemental oxygen (7 L) - Constitutional Vitals: Temp Pulse Resp BP Pulse Ox 97.3 F L 91 18 104/70 97 08/07/16 07:14 08/07/16 07:14 08/07/16 07:33 08/07/16 07:14 08/07/16 07:33 General appearance: Present: cooperative, A&O X 3, morbidly obese, pleasant, no acute distress, obese, answers questions appropriately Exam: General: Cooperative, pleasant, no acute distress, alert and oriented 3, answers questions appropriately HEENT: Normocephalic, atraumatic, neck supple, trachea midline, Conjunctiva pink , sclera anicteric Respiratory: No accessory muscle usage, improved air movement bilaterally, slight rales appreciated Cardiovascular: Regular rate and rhythm, S1 and S2 present, 3/6 systolic murmur heard best at the right upper sternal border GI/abdominal: Nondistended, protuberant, nontender, soft, normal bowel sounds, no peritoneal signs, healing ecchymosis on left-sided chest Extremities: No calf tenderness, noncyanotic, chronic skin changes in place in b /l LE, 1+ pitted edema bilaterally in LE, warm, lower extremity pulses palpable and symmetrical, healing ecchymosis on shoulder, 4 cm long laceration covered with eschar on the dorsum of left hand Neurological: Alert and oriented 3, no facial droop, no focal deficits Skin: Dry, intact, normal color Internal Medicine: Result - Labs CBC & Chem 7: 08/07/16 03:56 08/06/16 05:16 Labs: Short CBC 08/07/16 Range/Units 03:56 WBC 12.1 H (4.3-11.1) K/mcL Hgb 10.7 L (12.9-16.9) g/dL Hct 36.4 L (37.5-50.1) % Plt Count 146 (140-400) K/mcL Neutrophils # 11.4 H (1.6-8.9) K/mcL - ABG Interpretation ABG results: ABG ABG pH 7.31 pH Units (7.32-7.45) L 08/04/16 17:07 ABG pCO2 85 mmHg (35-45) H* 08/04/16 17:07 ABG pO2 73 mmHg (85-104) L 08/04/16 17:07 ABG O2 Saturation 93 % (95-98) L 08/04/16 17:07 PT/INR, D-dimer PT 12.5 Seconds (9.4-12.1) H 08/04/16 13:09 - VTE Documentation of Mechanical Device: Graduated compression elastic hosiery Consult Discharge Plan - Plan [facility]errals: [facility] Provider[facility] - 08/20/16 9:15 am <Aryan Olivares - Last Filed: 08/07/16 16:13> Date of Encounter: 08/07/16 - Constitutional Vitals: Temp Pulse Resp BP Pulse Ox 97.7 F 84 18 118/70 96 08/07/16 15:31 08/07/16 15:31 08/07/16 15:43 08/07/16 15:31 08/07/16 15:43 Internal Medicine: Result - Labs CBC & Chem 7: 08/07/16 03:56 08/07/16 05:33 Labs: Short CBC 08/07/16 Range/Units 03:56 WBC 12.1 H (4.3-11.1) K/mcL Hgb 10.7 L (12.9-16.9) g/dL Hct 36.4 L (37.5-50.1) % Plt Count 146 (140-400) K/mcL Neutrophils # 11.4 H (1.6-8.9) K/mcL BMP 08/07/16 05:33 Sodium 146 H Potassium 4.8 H Chloride 102 Carbon Dioxide 28 BUN 30 H Creatinine 1.49 H Glucose 200 H Calcium 9.0 - ABG Interpretation ABG results: ABG ABG pH 7.31 pH Units (7.32-7.45) L 08/04/16 17:07 ABG pCO2 85 mmHg (35-45) H* 08/04/16 17:07 ABG pO2 73 mmHg (85-104) L 08/04/16 17:07 ABG O2 Saturation 93 % (95-98) L 08/04/16 17:07 PT/INR, D-dimer PT 12.5 Seconds (9.4-12.1) H 08/04/16 13:09 - Attending Attestation I examined this patient and my medical decision-making was reviewed with the MATH AND PHYSICS INSTRUCTOR/PA/Advanced Practice Nurse/Resident Physician. I agree with the documented findings, disposition and treatment plan as described except to the extent set forth below.
[2016-08-07 11:35] LABS: Potassium 4.8 mEq/L (3.5-4.5)
--- NOTE | 2016-08-07 16:45 | Electrocardiograph Report ---
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
[2016-08-07] MEDS: Levofloxacin 750 MG/150 ML 750 MG/150 ML BAG IVPB SCH (17:18)
[2016-08-07] MEDS: Melatonin 3 MG TABLET PO SCH (20:45)
[2016-08-08] MEDS: methylPREDNISolone 125 MG/2 ML VIAL IVP SCH ×3 (01:42→17:41)
[2016-08-08] MEDS: Ipratropium/Albuterol Neb 3 ML IH SCH ×5 (04:00→19:49)
[2016-08-08] MEDS: *HR* Heparin 5,000 UNIT/ML VIAL SQ SCH ×2 (04:58→17:44)
[2016-08-08] MEDS: Piperacillin/Tazobactam 3.375 GM in D5% in Water (Mini-Bag+) 100 ML IVPB SCH ×4 (04:58→21:19)
[2016-08-08 06:29] LABS: Hematocrit 38.9 % (37.5-50.1); Hemoglobin 11.5 g/dL (12.9-16.9); Immature Granulocytes % 0.8 % (0-4); Lymphocytes # 0.3 K/mcL (0.6-4.6); Lymphocytes % 2.6 %; Mean Corpuscular HGB Conc 29.6 g/dL (31.6-35.5); Mean Corpuscular Hemoglobin 28.9 pg (28.0-33.3); Mean Corpuscular Volume 97.7 fL (83.0-100.0); Mean Platelet Volume 11.2 fL (9.4-12.4); Monocytes # 0.3 K/mcL (0.0-1.3); Monocytes % 2.5 %; Neutrophils # 9.2 K/mcL (1.6-8.9); Platelet Count 132 K/mcL (140-400); Red Blood Count 3.98 M/mcL (4.19-5.50); Red Cell Distribution Width 15.1 % (11.5-14.5); Segmented Neutrophils % 94.1 %
[2016-08-08 06:34] LABS: BUN/Creatinine Ratio 22 (6-26); Blood Urea Nitrogen 29 mg/dL (8-26); Calcium 8.9 mg/dL (8.6-10.8); Carbon Dioxide 33 mEq/L (19-29); Chloride 100 mEq/L (98-109); Glucose 194 mg/dL (70-99); Magnesium 2.5 mg/dL (1.6-2.6); Osmolality,Calculated 305 (280-300); Sodium 142 mEq/L (136-145); eGFR For African Americans > 60 (> 60); eGFR For Non-African Americans 55 (> 60)
[2016-08-08 06:40] LABS: Potassium 5.2 mEq/L (3.5-4.5)
[2016-08-08] MEDS: Cholecalciferol (D-3) 1,000 UNIT TABLET PO SCH (08:11)
[2016-08-08] MEDS: Cyanocobalamin (B-12) 1,000 MCG TABLET PO SCH (08:11)
[2016-08-08] MEDS: Folic Acid 1 MG TABLET PO SCH (08:11)
[2016-08-08] MEDS: Gabapentin 100 MG CAPSULE PO SCH ×3 (08:13→20:00)
[2016-08-08] MEDS: Spironolactone 25 MG TABLET PO SCH (08:17)
[2016-08-08] MEDS: Sennosides 8.6 MG TABLET PO SCH ×2 (08:18→20:00)
[2016-08-08] MEDS: Torsemide 20 MG TABLET PO SCH (08:18)
[2016-08-08] MEDS: Acetaminophen 325 MG TABLET PO PRN (08:43)
[2016-08-08] MEDS: Vancomycin 1,750 MG in D5% in Water 500 ML IVPB SCH (11:50)
--- NOTE | 2016-08-08 13:13 | Internal Med Progress Note ---
Date of Encounter: 08/08/16 Time of Encounter: 13:12 - Assessment and plan (1) Acute and chronic respiratory failure ([id number]) Current Visit: No Status: Acute Assessment and plan: Patient found to have multifocal pneumonia, which is likely the cause of his hypoxia and hemoptysis, but non-compliant with bipap could certainly be contributory. Patient has chronic history of respiratory failure with hypercapnia requiring bipap support, however he has been noncompliant with using bipap at home. Patient ABG taken at the time of admission supports this hypothesis. Will continue to support breathing as below. Patient reports having several episodes of hemoptysis, likely due to multifocal pneumonia. No PE seen on CTA CO2 narcosis secondary to pneumonia and noncompliance, now resolved Patient started on Levaquin, Vancomycin, and Zosyn yesterday afternoon, today is day 3 Continue solu-medrol Breathing treatment prn and scheduled Bipap compliance and support as needed Monitor O2 saturation,goal O2 sat: 89-92% patient at high risk of intubation and has history of intubation in the past 08/08/2016. day 4 abx on abx/Steroids/ BDAs shown significant improvement since admission will continue same treatment. Qualifiers: Respiratory failure complication: hypoxia and hypercapnia Qualified Code(s) : J96.21 - Acute and chronic respiratory failure with hypoxia; J96.22 - Acute and chronic respiratory failure with hypercapnia (2) Pneumonia Current Visit: No Status: Acute Assessment and plan: Healthcare acquired given patient need of IV antibiotics Plan as above Qualifiers: Pneumonia type: due to unspecified organism Laterality: bilateral Lung location: unspecified part of lung Qualified Code(s): J18.9 - Pneumonia, unspecified organism (3) CO2 narcosis Current Visit: No Status: Acute Assessment and plan: Likely from pneumonia and non-compliance with bipap at home Plan as above (4) COPD (chronic obstructive pulmonary disease) with acute bronchitis Current Visit: No Status: Acute - Subjective Interval history: seen and examined. Patient is more alert and oriented. Patient denies chest pain, shortness of breath, vomiting or diarrhea. Patient's family at bedside. Patient's family appreciates improvement in the patient's health. - Constitutional Vitals: Temp Pulse Resp BP Pulse Ox 98.1 F 84 16 97/67 94 08/08/16 11:12 08/08/16 11:12 08/08/16 11:12 08/08/16 11:12 08/08/16 11:41 General appearance: Present: cooperative, A&O X 3, morbidly obese, pleasant, no acute distress, obese, answers questions appropriately - Head Head exam: Present: atraumatic, normocephalic - Eye Eye exam: Present: PERRL, conjuntiva pink, sclera anicteric Pupils: Present: PERRL - Neck Neck exam general surgery: Present: supple, trachea midline. Absent: lymphadenopathy - Respiratory Respiratory exam: Present: CTAB. Absent: accessory muscle use, rales, rhonchi, wheezes - Cardiovascular Cardiovascular exam: Present: RRR, +S1, +S2. Absent: diastolic murmur, gallop, rubs, systolic murmur - GI/Abdominal GI/Abdominal exam: Present: normal bowel sounds, soft, no peritoneal signs. Absent: distended, tenderness - Extremities Exam Extremities exam: Present: warm, radial pulses palpable and symetrical. Absent : calf tenderness, cyanotic, pedal edema - Neurological Exam Neurological exam: Present: CN II-XII intact, oriented X3, no focal deficits. Absent: pronater drift, facial droop, speech deficit - Skin Skin exam: Present: dry, intact Internal Medicine: Result - Labs CBC & Chem 7: 08/08/16 06:11 08/08/16 06:11 Labs: Short CBC 08/08/16 Range/Units 06:11 WBC 9.8 (4.3-11.1) K/mcL Hgb 11.5 L (12.9-16.9) g/dL Hct 38.9 (37.5-50.1) % Plt Count 132 L (140-400) K/mcL Neutrophils # 9.2 H (1.6-8.9) K/mcL BMP 08/08/16 06:11 Sodium 142 Potassium 5.2 H Chloride 100 Carbon Dioxide 33 H BUN 29 H Creatinine 1.30 H Glucose 194 H Calcium 8.9 - ABG Interpretation ABG results: ABG ABG pH 7.31 pH Units (7.32-7.45) L 08/04/16 17:07 ABG pCO2 85 mmHg (35-45) H* 08/04/16 17:07 ABG pO2 73 mmHg (85-104) L 08/04/16 17:07 ABG O2 Saturation 93 % (95-98) L 08/04/16 17:07 PT/INR, D-dimer PT 12.5 Seconds (9.4-12.1) H 08/04/16 13:09 - VTE Documentation of Mechanical Device: Graduated compression elastic hosiery Consult Discharge Plan - Plan Referrals: BRITTANY,PCP [Primary Care Provider] - 08/20/16 9:15 am
[2016-08-08] MEDS: levoFLOXacin 750 MG TABLET PO SCH (17:42)
[2016-08-08] MEDS: Melatonin 3 MG TABLET PO SCH (20:00)
[2016-08-09] MEDS: Ipratropium/Albuterol Neb 3 ML IH SCH ×7 (00:20→23:54)
[2016-08-09] MEDS: methylPREDNISolone 125 MG/2 ML VIAL IVP SCH ×3 (01:23→16:59)
[2016-08-09] MEDS: Piperacillin/Tazobactam 3.375 GM in D5% in Water (Mini-Bag+) 100 ML IVPB SCH ×3 (03:38→19:47)
[2016-08-09] MEDS: *HR* Heparin 5,000 UNIT/ML VIAL SQ SCH ×2 (06:09→17:05)
[2016-08-09 06:57] LABS: Basophils % 0.1 %; Monocytes % 2.6 %; Red Cell Distribution Width 14.8 % (11.5-14.5)
[2016-08-09 06:59] LABS: Hematocrit 38.7 % (37.5-50.1); Hemoglobin 11.5 g/dL (12.9-16.9); Immature Granulocytes % 0.7 % (0-4); Lymphocytes # 0.2 K/mcL (0.6-4.6); Lymphocytes % 2.6 %; Mean Corpuscular HGB Conc 29.7 g/dL (31.6-35.5); Mean Corpuscular Hemoglobin 28.8 pg (28.0-33.3); Mean Platelet Volume 10.9 fL (9.4-12.4); Monocytes # 0.2 K/mcL (0.0-1.3); Neutrophils # 8.3 K/mcL (1.6-8.9); Platelet Count 134 K/mcL (140-400); Red Blood Count 3.99 M/mcL (4.19-5.50)
[2016-08-09 07:34] LABS: Platelet Estimate Normal (Normal)
[2016-08-09 08:32] LABS: Alanine Aminotransferase 30 Units/L (0-55); Albumin 3.1 g/dL (3.5-5.0); Alkaline Phosphatase 75 Units/L (38-126); Aspartate Amino Transferase 20 Units/L (5-34); BUN/Creatinine Ratio 23 (6-26); Bilirubin,Total 0.4 mg/dL (0.2-1.2); Blood Urea Nitrogen 29 mg/dL (8-26); Calcium 9.1 mg/dL (8.6-10.8); Carbon Dioxide 35 mEq/L (19-29); Chloride 99 mEq/L (98-109); Globulin 3.1 g/dL (2.4-3.5); Glucose 207 mg/dL (70-99); Osmolality,Calculated 304 (280-300); Potassium 4.5 mEq/L (3.5-4.5); Sodium 141 mEq/L (136-145); Total Protein 6.2 g/dL (6.0-8.3); eGFR For African Americans > 60 (> 60); eGFR For Non-African Americans 57 (> 60)
[2016-08-09] MEDS: Torsemide 20 MG TABLET PO SCH (08:33)
[2016-08-09] MEDS: Spironolactone 25 MG TABLET PO SCH (08:33)
[2016-08-09] MEDS: Sennosides 8.6 MG TABLET PO SCH ×2 (08:33→19:47)
[2016-08-09] MEDS: Cyanocobalamin (B-12) 1,000 MCG TABLET PO SCH (08:33)
[2016-08-09] MEDS: Cholecalciferol (D-3) 1,000 UNIT TABLET PO SCH (08:33)
[2016-08-09] MEDS: Gabapentin 100 MG CAPSULE PO SCH ×3 (08:33→19:48)
[2016-08-09] MEDS: Folic Acid 1 MG TABLET PO SCH (08:33)
[2016-08-09] MEDS: Vancomycin 1,750 MG in D5% in Water 500 ML IVPB SCH (13:32)
--- NOTE | 2016-08-09 15:07 | Internal Med Progress Note ---
Date of Encounter: 08/09/16 Time of Encounter: 15:05 - Assessment and plan (1) Acute and chronic respiratory failure ([id number]) Current Visit: No Status: Acute Assessment and plan: Patient found to have multifocal pneumonia, which is likely the cause of his hypoxia and hemoptysis, but non-compliant with bipap could certainly be contributory. Patient has chronic history of respiratory failure with hypercapnia requiring bipap support, however he has been noncompliant with using bipap at home. Patient ABG taken at the time of admission supports this hypothesis. Will continue to support breathing as below. Patient reports having several episodes of hemoptysis, likely due to multifocal pneumonia. No PE seen on CTA CO2 narcosis secondary to pneumonia and noncompliance, now resolved Patient started on Levaquin, Vancomycin, and Zosyn yesterday afternoon, today is day 3 Continue solu-medrol Breathing treatment prn and scheduled Bipap compliance and support as needed Monitor O2 saturation,goal O2 sat: 89-92% patient at high risk of intubation and has history of intubation in the past 08/08/2016. day 4 abx on abx/Steroids/ BDAs shown significant improvement since admission will continue same treatment. 08/09/2016 D5 antibiotics No evidence of worsening infection. Patient has a significant improvement in terms of breathing as well as oxygenation. We will continue antibiotic for now Qualifiers: Respiratory failure complication: hypoxia and hypercapnia Qualified Code(s) : J96.21 - Acute and chronic respiratory failure with hypoxia; J96.22 - Acute and chronic respiratory failure with hypercapnia (2) Pneumonia Current Visit: No Status: Acute Assessment and plan: Healthcare acquired given patient need of IV antibiotics Plan as above Qualifiers: Pneumonia type: due to unspecified organism Laterality: bilateral Lung location: unspecified part of lung Qualified Code(s): J18.9 - Pneumonia, unspecified organism (3) CO2 narcosis Current Visit: No Status: Acute Assessment and plan: Likely from pneumonia and non-compliance with bipap at home Plan as above (4) COPD (chronic obstructive pulmonary disease) with acute bronchitis Current Visit: No Status: Acute - Subjective Interval history: seen and examined. Patient is more alert and oriented. Patient denies chest pain, shortness of breath, vomiting or diarrhea. Patient's family at bedside. Patient's family appreciates improvement in the patient's health. 08/09/2016 Seen and examined. Patient is more alert and oriented. Patient denies chest pain, shortness of breath, vomiting or diarrhea. No new complaints. - Constitutional Vitals: Temp Pulse Resp BP Pulse Ox 97.8 F 83 18 130/80 89 08/09/16 07:03 08/09/16 07:03 08/09/16 11:03 08/09/16 07:03 08/09/16 11:03 General appearance: Present: cooperative, A&O X 3, morbidly obese, pleasant, no acute distress, obese, answers questions appropriately - Head Head exam: Present: atraumatic, normocephalic - Eye Eye exam: Present: PERRL, conjuntiva pink, sclera anicteric Pupils: Present: PERRL - Neck Neck exam general surgery: Present: supple, trachea midline. Absent: lymphadenopathy - Respiratory Respiratory exam: Present: CTAB. Absent: accessory muscle use, rales, rhonchi, wheezes - Cardiovascular Cardiovascular exam: Present: RRR, +S1, +S2. Absent: diastolic murmur, gallop, rubs, systolic murmur - GI/Abdominal GI/Abdominal exam: Present: normal bowel sounds, soft, no peritoneal signs. Absent: distended, tenderness - Extremities Exam Extremities exam: Present: warm, radial pulses palpable and symetrical. Absent : calf tenderness, cyanotic, pedal edema - Neurological Exam Neurological exam: Present: CN II-XII intact, oriented X3, no focal deficits. Absent: pronater drift, facial droop, speech deficit - Skin Skin exam: Present: dry, intact Internal Medicine: Result - Labs CBC & Chem 7: 08/09/16 06:13 08/09/16 08:12 Labs: Short CBC 08/09/16 Range/Units 06:13 WBC 8.8 (4.3-11.1) K/mcL Hgb 11.5 L (12.9-16.9) g/dL Hct 38.7 (37.5-50.1) % Plt Count 134 L (140-400) K/mcL Neutrophils # 8.3 (1.6-8.9) K/mcL BMP 08/09/16 08:12 Sodium 141 Potassium 4.5 Chloride 99 Carbon Dioxide 35 H BUN 29 H Creatinine 1.26 H Glucose 207 H Calcium 9.1 Liver Function 08/09/16 Range/Units 08:12 Total Bilirubin 0.4 (0.2-1.2) mg/dL AST 20 (5-34) Units/L ALT 30 (0-55) Units/L Alkaline Phosphatase 75 (38-126) Units/L Albumin 3.1 L (3.5-5.0) g/dL - ABG Interpretation ABG results: ABG ABG pH 7.31 pH Units (7.32-7.45) L 08/04/16 17:07 ABG pCO2 85 mmHg (35-45) H* 08/04/16 17:07 ABG pO2 73 mmHg (85-104) L 08/04/16 17:07 ABG O2 Saturation 93 % (95-98) L 08/04/16 17:07 PT/INR, D-dimer PT 12.5 Seconds (9.4-12.1) H 08/04/16 13:09 - VTE Documentation of Mechanical Device: Graduated compression elastic hosiery Consult Discharge Plan - Plan Referrals: BRITTANY,PCP [Primary Care Provider] - 08/20/16 9:15 am
[2016-08-09] MEDS: levoFLOXacin 750 MG TABLET PO SCH (17:01)
[2016-08-09] MEDS: Melatonin 3 MG TABLET PO SCH (19:48)
[2016-08-10] MEDS: methylPREDNISolone 125 MG/2 ML VIAL IVP SCH ×2 (01:34→09:23)
[2016-08-10 04:07] LABS: Basophils % 0.2 %
[2016-08-10 04:09] LABS: Hemoglobin 11.7 g/dL (12.9-16.9); Immature Granulocytes % 1.6 % (0-4); Lymphocytes # 0.2 K/mcL (0.6-4.6); Lymphocytes % 2.2 %; Mean Corpuscular Hemoglobin 29.2 pg (28.0-33.3); Mean Corpuscular Volume 97.3 fL (83.0-100.0); Mean Platelet Volume 10.2 fL (9.4-12.4); Monocytes # 0.4 K/mcL (0.0-1.3); Monocytes % 3.6 %; Platelet Count 120 K/mcL (140-400); Red Blood Count 4.01 M/mcL (4.19-5.50); Red Cell Distribution Width 14.9 % (11.5-14.5); Segmented Neutrophils % 92.4 %
[2016-08-10 04:18] LABS: Alanine Aminotransferase 32 Units/L (0-55); Albumin 2.9 g/dL (3.5-5.0); Alkaline Phosphatase 69 Units/L (38-126); Aspartate Amino Transferase 16 Units/L (5-34); BUN/Creatinine Ratio 23 (6-26); Bilirubin,Total 0.4 mg/dL (0.2-1.2); Blood Urea Nitrogen 32 mg/dL (8-26); Chloride 98 mEq/L (98-109); Glucose 172 mg/dL (70-99); Osmolality,Calculated 305 (280-300); Potassium 4.5 mEq/L (3.5-4.5); Sodium 142 mEq/L (136-145); Total Protein 5.9 g/dL (6.0-8.3); eGFR For African Americans > 60 (> 60); eGFR For Non-African Americans 50 (> 60)
[2016-08-10 04:19] LABS: Carbon Dioxide 40 mEq/L (19-29)
[2016-08-10 04:36] LABS: Macrocytosis Present (Not Present); Platelet Estimate Slight Decrease (Normal)
[2016-08-10] MEDS: Ipratropium/Albuterol Neb 3 ML IH SCH ×6 (04:46→23:26)
[2016-08-10] MEDS: Piperacillin/Tazobactam 3.375 GM in D5% in Water (Mini-Bag+) 100 ML IVPB SCH ×3 (06:37→16:33)
[2016-08-10] MEDS: *HR* Heparin 5,000 UNIT/ML VIAL SQ SCH ×2 (06:47→16:34)
[2016-08-10] MEDS: Cefdinir 300 MG CAPSULE PO SCH ×2 (09:23→21:27)
[2016-08-10] MEDS: Torsemide 20 MG TABLET PO SCH (09:23)
[2016-08-10] MEDS: Cyanocobalamin (B-12) 1,000 MCG TABLET PO SCH (09:23)
[2016-08-10] MEDS: Sennosides 8.6 MG TABLET PO SCH ×2 (09:23→21:29)
[2016-08-10] MEDS: Cholecalciferol (D-3) 1,000 UNIT TABLET PO SCH (09:24)
[2016-08-10] MEDS: Gabapentin 100 MG CAPSULE PO SCH ×3 (09:24→21:28)
[2016-08-10] MEDS: Spironolactone 25 MG TABLET PO SCH (09:24)
[2016-08-10] MEDS: Folic Acid 1 MG TABLET PO SCH (09:24)
[2016-08-10] MEDS ORDERED: Aminoglycoside Consult 1 EACH MC ONE (10:05)
--- NOTE | 2016-08-10 14:19 | Internal Med Progress Note ---
<Gasper Sandoval - Last Filed: 08/10/16 14:30> Date of Encounter: 08/10/16 Time of Encounter: 14:16 - Assessment and plan (1) Acute and chronic respiratory failure ([id number]) Current Visit: No Status: Acute Assessment and plan: Patient found to have multifocal pneumonia, which is likely the cause of his hypoxia and hemoptysis, but non-compliant with bipap could certainly be contributory. - Throughout his inpatient stay his respiratory status is improved though he still requires 8 L of nasal cannula oxygen high flow. He has had difficulty weaning off oxygen requirements even though clinically his pneumonia is improving. - Patient has chronic history of respiratory failure with hypercapnia requiring bipap support, however he has been noncompliant with using bipap at home. Plan: -Vancomycin discontinued and patient started on Omnicef 300 mg twice a day -Continue Levaquin by mouth daily - Continue BiPAP use - Wean oxygen as tolerated with goal of patient's 1.5 L nasal cannula home dose. - Discontinue Solu-Medrol and start 40 mg prednisone by mouth daily for 2 more days - Ambulate in the hallway with nasal cannula oxygen - Bedside spirometer - Pulmonary rehabilitation Qualifiers: Respiratory failure complication: hypoxia and hypercapnia Qualified Code(s) : J96.21 - Acute and chronic respiratory failure with hypoxia; J96.22 - Acute and chronic respiratory failure with hypercapnia (2) Pneumonia Current Visit: No Status: Acute Assessment and plan: Patient continues to have increased oxygen demand but has been treated consistently for pneumonia. Clinically pneumonia has improved. Patient's respiratory status has improved despite still requiring increased oxygen demand. Plan: - As discussed above Qualifiers: Pneumonia type: due to unspecified organism Laterality: bilateral Lung location: unspecified part of lung Qualified Code(s): J18.9 - Pneumonia, unspecified organism (3) Diastolic CHF Current Visit: No Status: Chronic Assessment and plan: Known history of diastolic heart failure with the last echocardiogram 2016 with an LVEF of 65-70% there is evidence of mild diastolic dysfunction of the left ventricle. Normal right ventricle size and function. No significant valvular dysfunction. Bioprosthetic aortic valve was not well visualized. Gradient, 15 may be normal for type and size about. No aortic regurgitation. No pulmonary hypertension by TR gradient. IVC is not well visualized. The ascending aorta appeared mildly dilated with 4.2 cm - Clinically appears mildly fluid overloaded with lower extremity edema. - Continue 2 L fluid restrictions, 2 g sodium restriction, daily weights and strict intake and output recording. - Monitor clinical examination daily. - Continue simvastatin, spironolactone Qualifiers: Congestive heart failure chronicity: chronic Qualified Code(s): I50.32 - Chronic diastolic (congestive) heart failure (4) Acute on chronic kidney failure Current Visit: No Status: Chronic Assessment and plan: Patient presented with acute on chronic renal failure with stageIII renal failure. Creatinine is 1.41 slightly elevated from 1.26 yesterday. Plan: - Continue oral rehydration with restrictions given diastolic heart failure - Continue to monitor renal function daily - Avoid nephrotoxic medications and renally dose antibiotics - Recheck with BMP in a.m. (5) Parkinson disease Current Visit: No Status: Chronic Assessment and plan: Stable. (6) VINCE treated with BiPAP Current Visit: No Status: Chronic Assessment and plan: Patient reports having difficulty with compliance with Bipap at home. He reports that he will pull his Bipap off at night and not know that he is doing it. His states that he will often have it off at 3am. Continue Bipap as needed Continue Bipap at night - Patient needs to improve compliance to reduce secondary complications. (7) Hyperglycemia Current Visit: Yes Status: Acute Assessment and plan: Patient hyperglycemic in the setting of IV steroids. No diagnosis of diabetes. - Before meals at bedtime glucose checks - Low-dose sliding scale insulin - Subjective Interval history: Mr. Salcido 66-year-old male seen and evaluated patient bedside this morning. He feels that he is breathing better but still requires 8 liters nasal cannula oxygen on high flow. He denies any chest pain, chest pressure, purulent sputum or significant sputum production. He said that his home oxygen is at 1.5 L nasal cannula oxygen. He is tolerating oral intake and denies any gastric discomfort nausea or vomiting diarrhea or constipation. He feels that his breathing is much improved compared to admission. He is hoping for discharge soon but understands that his breathing and rest her status needs to improve. - Constitutional Vitals: Temp Pulse Resp BP Pulse Ox 98.2 F 92 24 138/71 94 08/10/16 11:00 08/10/16 11:00 08/10/16 11:56 08/10/16 11:00 08/10/16 11:56 General appearance: Present: cooperative, A&O X 3, morbidly obese, pleasant, no acute distress, obese, answers questions appropriately Exam: General: Patient alert, awake, oriented 3, interactive, in no acute distress HEENT: Normocephalic, atraumatic, pupils equal reactive to light, nasal cavity patent and open septum median position, oral mucosa moist, uvula midline, neck supple, trachea midline no palpable lymphadenopathy, no thyromegaly. Chest: Symmetric bilateral correlating with respiratory effort, effort nonlabored. Cardiac: Regular rate and rhythm, positive S1, S2, no bruits appreciated bilateral carotids, Radial pulses 2+ bilateral, posterior tibial and dorsal pedal pulses 2+ bilateral. Respiratory: Clear to auscultation all lung fernandez Abdomen: Soft, nontender, positive bowel sounds, no palpable masses appreciated on examination Extremities: Symmetric bilateral, trace bilateral lower extremities edema with venous stasis findings., patient moving all 4 extremities spontaneously. Neurologic: No focal deficits appreciated on examination. Face symmetric, muscle strength symmetric bilateral upper and lower extremities. Internal Medicine: Result - Labs CBC & Chem 7: 08/10/16 04:00 08/10/16 04:00 Labs: Short CBC 08/10/16 Range/Units 04:00 WBC 9.7 (4.3-11.1) K/mcL Hgb 11.7 L (12.9-16.9) g/dL Hct 39.0 (37.5-50.1) % Plt Count 120 L (140-400) K/mcL Neutrophils # 9.0 H (1.6-8.9) K/mcL BMP 08/10/16 04:00 Sodium 142 Potassium 4.5 Chloride 98 Carbon Dioxide 40 H* BUN 32 H Creatinine 1.41 H Glucose 172 H Calcium 9.0 Liver Function 08/10/16 Range/Units 04:00 Total Bilirubin 0.4 (0.2-1.2) mg/dL AST 16 (5-34) Units/L ALT 32 (0-55) Units/L Alkaline Phosphatase 69 (38-126) Units/L Albumin 2.9 L (3.5-5.0) g/dL - ABG Interpretation ABG results: ABG ABG pH 7.31 pH Units (7.32-7.45) L 08/04/16 17:07 ABG pCO2 85 mmHg (35-45) H* 08/04/16 17:07 ABG pO2 73 mmHg (85-104) L 08/04/16 17:07 ABG O2 Saturation 93 % (95-98) L 08/04/16 17:07 PT/INR, D-dimer PT 12.5 Seconds (9.4-12.1) H 08/04/16 13:09 - VTE Documentation of Mechanical Device: Graduated compression elastic hosiery Consult Discharge Plan - Plan [facility]errals: [facility] [Primary Care Provider[facility] - 08/20/16 9:15 am <Aryan Olivares - Last Filed: 08/10/16 17:30> Date of Encounter: 08/10/16 - Assessment and plan (1) Acute and chronic respiratory failure ([id number]) Current Visit: No Status: Acute Qualifiers: Respiratory failure complication: hypoxia and hypercapnia Qualified Code(s) : J96.21 - Acute and chronic respiratory failure with hypoxia; J96.22 - Acute and chronic respiratory failure with hypercapnia (2) Pneumonia Current Visit: No Status: Acute Qualifiers: Pneumonia type: due to unspecified organism Laterality: bilateral Lung location: unspecified part of lung Qualified Code(s): J18.9 - Pneumonia, unspecified organism (3) CO2 narcosis Current Visit: No Status: Acute (4) COPD (chronic obstructive pulmonary disease) with acute bronchitis Current Visit: No Status: Acute - Constitutional Vitals: Temp Pulse Resp BP Pulse Ox 97.9 F 96 16 139/76 92 08/10/16 15:21 08/10/16 15:21 08/10/16 16:09 08/10/16 15:21 08/10/16 16:09 Internal Medicine: Result - Labs CBC & Chem 7: 08/10/16 04:00 08/10/16 04:00 Labs: Short CBC 08/10/16 Range/Units 04:00 WBC 9.7 (4.3-11.1) K/mcL Hgb 11.7 L (12.9-16.9) g/dL Hct 39.0 (37.5-50.1) % Plt Count 120 L (140-400) K/mcL Neutrophils # 9.0 H (1.6-8.9) K/mcL BMP 08/10/16 04:00 Sodium 142 Potassium 4.5 Chloride 98 Carbon Dioxide 40 H* BUN 32 H Creatinine 1.41 H Glucose 172 H Calcium 9.0 Liver Function 08/10/16 Range/Units 04:00 Total Bilirubin 0.4 (0.2-1.2) mg/dL AST 16 (5-34) Units/L ALT 32 (0-55) Units/L Alkaline Phosphatase 69 (38-126) Units/L Albumin 2.9 L (3.5-5.0) g/dL - ABG Interpretation ABG results: ABG ABG pH 7.31 pH Units (7.32-7.45) L 08/04/16 17:07 ABG pCO2 85 mmHg (35-45) H* 08/04/16 17:07 ABG pO2 73 mmHg (85-104) L 08/04/16 17:07 ABG O2 Saturation 93 % (95-98) L 08/04/16 17:07 PT/INR, D-dimer PT 12.5 Seconds (9.4-12.1) H 08/04/16 13:09 - Attending Attestation I examined this patient and my medical decision-making was reviewed with the PIPE ORGAN BUILDER/PA/Advanced Practice Nurse/Resident Physician. I agree with the documented findings, disposition and treatment plan as described except to the extent set forth below.
[2016-08-10] MEDS: levoFLOXacin 750 MG TABLET PO SCH (16:34)
[2016-08-10 19:40] LABS: ABG Base Excess 13.3 mEq/L (-2.0 to 3.0); ABG HCO3 41.4 mEQ/L (21-27); ABG Oxygen Saturation 79 % (95-98); ABG PH 7.38 pH Units (7.32-7.45); ABG TCO2 43.5 mEq/L (20-26)
[2016-08-10 19:41] LABS: Blood Gas Liter Flow 15 L/MIN
[2016-08-10 19:42] LABS: Blood Gas FiO2 75 %
[2016-08-10 19:44] LABS: ABG PCO2 70 mmHg (35-45); ABG PO2 44 mmHg (85-104)
[2016-08-10] MEDS: Melatonin 3 MG TABLET PO SCH (21:28)
[2016-08-10] MEDS: Acetaminophen 325 MG TABLET PO PRN (21:29)
[2016-08-11] MEDS: Piperacillin/Tazobactam 3.375 GM in D5% in Water (Mini-Bag+) 100 ML IVPB SCH ×3 (00:11→16:35)
[2016-08-11] MEDS: Ipratropium/Albuterol Neb 3 ML IH SCH ×5 (04:35→20:31)
[2016-08-11 04:42] LABS: Basophils % 0.3 %; Hematocrit 39.6 % (37.5-50.1); Hemoglobin 11.5 g/dL (12.9-16.9); Immature Granulocytes % 1.9 % (0-4); Lymphocytes # 0.6 K/mcL (0.6-4.6); Mean Corpuscular Hemoglobin 28.5 pg (28.0-33.3); Mean Corpuscular Volume 98.3 fL (83.0-100.0); Mean Platelet Volume 10.2 fL (9.4-12.4); Monocytes # 0.6 K/mcL (0.0-1.3); Monocytes % 6.5 %; Neutrophils # 8.3 K/mcL (1.6-8.9); Platelet Count 119 K/mcL (140-400); Red Blood Count 4.03 M/mcL (4.19-5.50); Red Cell Distribution Width 15.2 % (11.5-14.5); Segmented Neutrophils % 85.3 %
[2016-08-11 05:03] LABS: Alanine Aminotransferase 34 Units/L (0-55); Albumin 2.9 g/dL (3.5-5.0); Albumin/Globulin Ratio 1.1 (1.1-2.2); Alkaline Phosphatase 66 Units/L (38-126); Aspartate Amino Transferase 17 Units/L (5-34); BUN/Creatinine Ratio 26 (6-26); Bilirubin,Total 0.3 mg/dL (0.2-1.2); Blood Urea Nitrogen 33 mg/dL (8-26); Calcium 8.9 mg/dL (8.6-10.8); Chloride 101 mEq/L (98-109); Globulin 2.7 g/dL (2.4-3.5); Glucose 112 mg/dL (70-99); Osmolality,Calculated 306 (280-300); Potassium 4.3 mEq/L (3.5-4.5); Sodium 144 mEq/L (136-145); Total Protein 5.6 g/dL (6.0-8.3); eGFR For African Americans > 60 (> 60); eGFR For Non-African Americans 55 (> 60)
[2016-08-11 05:14] LABS: Carbon Dioxide 41 mEq/L (19-29)
[2016-08-11] MEDS: *HR* Heparin 5,000 UNIT/ML VIAL SQ SCH ×2 (06:35→16:37)
[2016-08-11] MEDS: Torsemide 20 MG TABLET PO SCH (08:55)
[2016-08-11] MEDS: Gabapentin 100 MG CAPSULE PO SCH ×3 (08:56→20:54)
[2016-08-11] MEDS: Spironolactone 25 MG TABLET PO SCH (08:56)
[2016-08-11] MEDS: Sennosides 8.6 MG TABLET PO SCH ×2 (08:56→20:54)
[2016-08-11] MEDS: predniSONE 20 MG TABLET PO SCH (08:56)
[2016-08-11] MEDS: Cholecalciferol (D-3) 1,000 UNIT TABLET PO SCH (08:57)
[2016-08-11] MEDS: Cefdinir 300 MG CAPSULE PO SCH ×2 (08:57→20:53)
[2016-08-11] MEDS: Folic Acid 1 MG TABLET PO SCH (08:57)
[2016-08-11] MEDS: Cyanocobalamin (B-12) 1,000 MCG TABLET PO SCH (08:57)
--- NOTE | 2016-08-11 09:20 | Discharge Summary ---
Addendum entered and electronically signed by Gasper Sandoval DO 08/12 13:17: discharge date 08/12/2016 Original Note: <Gasper Sandoval - Last Filed: 08/11/16 17:22> Date of Encounter: 08/11/16 Time of Encounter: 09:19 - Discharge Diagnosis (1) Acute and chronic respiratory failure ([id number]) Priority: Primary Status: Acute Qualifiers: Respiratory failure complication: hypoxia and hypercapnia Qualified Code(s) : J96.21 - Acute and chronic respiratory failure with hypoxia; J96.22 - Acute and chronic respiratory failure with hypercapnia (2) Pneumonia Priority: Primary Status: Acute Qualifiers: Pneumonia type: due to unspecified organism Laterality: bilateral Lung location: unspecified part of lung Qualified Code(s): J18.9 - Pneumonia, unspecified organism (3) Diastolic CHF Priority: Secondary Status: Chronic Qualifiers: Congestive heart failure chronicity: chronic Qualified Code(s): I50.32 - Chronic diastolic (congestive) heart failure (4) Acute on chronic kidney failure Priority: Primary Status: Chronic (5) Parkinson disease Priority: Secondary Status: Chronic (6) VINCE treated with BiPAP Priority: Primary Status: Chronic (7) Hyperglycemia Priority: Secondary Status: Acute - Discharge Medications Prescriptions: Cefdinir [Omnicef] 300 mg PO BID #6 capsule levoFLOXacin [Levaquin] 750 mg PO Q24H #2 tablet Home Medications: Calcium Carbonate/Vitamin D3 [Calcium 500-Vit D3 400 Tablet] 1 tab PO BID [History] Clopidogrel [Plavix] 75 mg PO DAILY 10/01/14 [History] Cyanocobalamin (B-12) 1,000 mcg PO DAILY 10/01/14 [History] Docusate Sodium [Colace] 100 mg PO BID 10/01/14 [History] Ferrous Sulfate 325 mg PO BID 10/01/14 [History] Folic Acid 1 mg PO DAILY 10/01/14 [History] Pramipexole [Mirapex] 1 mg PO BID 10/01/14 [History] Sennosides [Senna] 8.6 mg PO BID 10/01/14 [History] Simvastatin [Zocor] 20 mg PO HS 10/01/14 [History] Trihexyphenidyl [Artane] 2 mg PO TID 10/01/14 [History] Budesonide/Formoterol 160/4.5 [Symbicort 160/4.5] 2 puff IH BID 03/24/15 [ History] Omeprazole [PriLOSEC] 20 mg PO DAILY 05/23/15 [History] Tiotropium [Spiriva] 18 mcg IH DAILY 05/23/15 [History] Acetaminophen [Tylenol] 650 mg PO Q6HR PRN 07/02/16 [History] Albuterol Neb [Proventil Neb] 2.5 mg IH Q6H PRN 07/02/16 [History] Albuterol Sulfate [Albuterol Inhaler] 2 puff IH Q4H PRN 07/02/16 [History] Allopurinol [Zyloprim 100 MG] 100 mg PO BID 07/02/16 [History] Ammonium Lactate 1 appl TP BID PRN 07/02/16 [History] Bisacodyl [Dulcolax] 10 mg RC DAILY PRN 07/02/16 [History] Gabapentin [Neurontin] 100 mg PO TID 07/02/16 [History] Lidocaine 4% CRM (LMX) [Lmx 4] 1 appl TP TID PRN 07/02/16 [History] Melatonin 3 mg PO HS 07/02/16 [History] Polyethylene Glycol 3350 [Smoothlax] 17 gm PO DAILY PRN 07/02/16 [History] Potassium Chloride [K-Tab ER] 20 meq PO DAILY 07/02/16 [History] Sod Chloride/B-6/Zinc Acet/Ca [Wound Cleanser] 2 - 3 spray IR AD 07/02/16 [ History] Spironolactone [Aldactone] 25 mg PO DAILY 07/02/16 [History] Torsemide [Demadex] 20 mg PO BID 07/02/16 [History] Cefdinir [Omnicef] 300 mg PO BID #6 capsule 08/11/16 [Rx] levoFLOXacin [Levaquin] 750 mg PO Q24H #2 tablet 08/11/16 [Rx] Allergies/Adverse Reactions: Allergies hydrochlorothiazide Allergy (Verified 07/18/16 23:25) Rash Date of admission: 08/04/16 14:22 [facility]: [facility] Consults: 08/04/16 15:56 Consult to Pastoral Services [CONS] Routine Comment: 08/05/16 10:38 Consult to Seismograph Helper [CONS] Routine Reason for SW Consult: [facility] PATIENT 08/06/16 18:32 Consult to Physical Therapy [CONS] Routine Comment: Evaluate, develop and implement POC Reason for Consult: decreased strength in legs 08/10/16 15:10 Consult to Pulmonary Rehab [CONS] Routine Reason for Consult: Patient with VINCE, lung disease difficulty reducing oxygen requirements. Call Completed: Yes Discharging clinician: Gasper Sandoval Anticipated date of discharge: 08/11/16 - Patient Status Disposition: Home, Self-Care Condition: Fair Functional capacity at discharge: uses cane/walker Overall status at discharge: patient is progressing back to baseline - Discharge Instructions Instructions: Levofloxacin (By mouth), Cefdinir (By mouth), Acute Respiratory Distress Syndrome (DC), Using Oxygen at Home (DC), Using Oxygen at Home (GEN), Chronic Obstructive Pulmonary Disease (DC), Chronic Obstructive Pulmonary Disease (GEN), Pneumonia (DC) Follow Up With: August Goodman MD [Partnered Physician] - 08/12/16 2:00 pm MD,PCP [Primary Care Provider] - 08/20/16 9:15 am Additional Instructions: 1. Follow-up with your primary care provider in the next 3-5 days 2. Take all prescriptions as prescribed, any concerns or questions contact her primary care provider. 3. Return to the emergency department if: you develope worsening of respiratory status, syncope, dyspnea or anyother concerning medical symptoms or signs such as altered mental status. - Diet and Activity Activity: increase activity as tolerated Diet: diabetic diet, low fat, low cholesterol, low salt diet Interval History: Mr. Salcido is a 66 year old male with PMH of COPD on LTOT, HTN, VINCE, morbid obesity, CAD, CHF who was admitted for acute respiratory distress secondary to COPD exacerbation. Patient was lethargic and not able to provide much history due to which information was obtained from the present at bedside. He was given IV steroids in the ER and placed on BiPAP with improvement in his saturations. original ABG at admission has a pH 7.34, pCO2 87, pO2 52, HCO3 46.9 , original CXR in ED demonstrated findings of Congestive heart failure. He was admitted to the general medical floor and placed on BiPAP, telemetry and started on IV diuresis. He did not demonstrate significant improvement over night and underwent CTA of the chest the demonstrated multifocal pneumonia and no PE. He was started on Vancomycin, Levaquin and Zosyn. He started to demonstrated improvement but continued to require high amounts of supplementary oxygen. Mental status continued to improve throughout his inpatient stay. He was continued on antibiotics broad spectrum, Inhalers, nebulizers and steroids with clinical improvement. On 08/10/2016 His Vancomycin was discontinued and he was started on PO Cefdinir. He was having difficulty with weaning down from 8L oxygen. Spirometer and breathing techniques were implemented. Over night he was able to wean down to 6L NC oxygen. On 08/11/2016 He was seen and evaluated and deemed stable to discharge with close follow up with [facility] at discharge and [facility] He was qualified for 6L NC oxygen at discharge and prescribed Cefdinir, Levaquin to completion for his pneumonia. Hospital course: Mr. Salcido is a 66 year old male - Time Spent with Patient Total time spent providing and/or coordinating discharge services: - Constitutional Vitals: Temp Pulse Resp BP Pulse Ox 97.9 F 85 16 124/74 94 08/11/16 07:17 08/11/16 07:17 08/11/16 07:46 08/11/16 07:17 08/11/16 07:46 General appearance: Present: cooperative, A&O X 3, morbidly obese, pleasant, no acute distress, obese, answers questions appropriately Exam: General: Patient alert, awake, oriented 3, interactive, in no acute distress HEENT: Normocephalic, atraumatic, pupils equal reactive to light, nasal cavity patent and open septum median position, oral mucosa moist, uvula midline, neck supple, trachea midline no palpable lymphadenopathy, no thyromegaly. Chest: Symmetric bilateral correlating with respiratory effort, effort nonlabored. Cardiac: Regular rate and rhythm, positive S1, S2, no bruits appreciated bilateral carotids, Radial pulses 2+ bilateral, posterior tibial and dorsal pedal pulses 2+ bilateral. Respiratory: Clear to auscultation all lung fernandez, yet diminished throughout Abdomen: Soft, nontender, positive bowel sounds, no palpable masses appreciated on examination Extremities: Symmetric bilateral, bilateral lower extremities edema with venous stasis findings., patient moving all 4 extremities spontaneously. Neurologic: No focal deficits appreciated on examination. Face symmetric, muscle strength symmetric bilateral upper and lower extremities. - VTE Documentation of Mechanical Device: Graduated compression elastic hosiery <Aryan Olivares P - Last Filed: 08/14/16 07:23> Date of Encounter: 08/14/16 - Discharge Diagnosis (1) Acute and chronic respiratory failure ([id number]) Status: Acute Qualifiers: Respiratory failure complication: hypoxia and hypercapnia Qualified Code(s) : J96.21 - Acute and chronic respiratory failure with hypoxia; J96.22 - Acute and chronic respiratory failure with hypercapnia (2) Pneumonia Status: Acute Qualifiers: Pneumonia type: due to unspecified organism Laterality: bilateral Lung location: unspecified part of lung Qualified Code(s): J18.9 - Pneumonia, unspecified organism (3) CO2 narcosis Status: Acute (4) COPD (chronic obstructive pulmonary disease) with acute bronchitis Status: Acute Date of admission: 08/04/16 14:22 Primary care physician: PCP MD Consults: 08/04/16 15:56 Consult to Pastoral Services [CONS] Routine Comment: 08/05/16 10:38 Consult to Seismograph Helper [CONS] Routine Reason for SW Consult: [facility] 08/06/16 18:32 Consult to Physical Therapy [CONS] Routine Comment: Evaluate, develop and implement POC Reason for Consult: decreased strength in legs 08/10/16 15:10 Consult to Pulmonary Rehab [CONS] Routine Reason for Consult: Patient with VINCE, lung disease difficulty reducing oxygen requirements. Call Completed: Yes Hospital course: Mr. Salcido is a 66 year old male - Time Spent with Patient Total time spent providing and/or coordinating discharge services: - Constitutional Vitals: Temp Pulse Resp BP Pulse Ox 97.9 F 85 16 124/74 92 08/11/16 07:17 08/11/16 07:17 08/11/16 10:52 08/11/16 07:17 08/11/16 10:52 - Attending Attestation I examined this patient and my medical decision-making was reviewed with the PHARMACY TECHNICIAN PER DIEM/PA/Advanced Practice Nurse/Resident Physician. I agree with the documented findings, disposition and treatment plan as described except to the extent set forth below.
[2016-08-11] MEDS: levoFLOXacin 750 MG TABLET PO SCH (16:36)
[2016-08-11] MEDS: Melatonin 3 MG TABLET PO SCH (20:54)
[2016-08-12] MEDS: Piperacillin/Tazobactam 3.375 GM in D5% in Water (Mini-Bag+) 100 ML IVPB SCH ×2 (00:10→08:13)
[2016-08-12] MEDS: Ipratropium/Albuterol Neb 3 ML IH SCH ×4 (00:28→10:57)
[2016-08-12] MEDS: *HR* Heparin 5,000 UNIT/ML VIAL SQ SCH (05:45)
[2016-08-12 07:08] VITALS: BP 142/65
[2016-08-12] MEDS: Cholecalciferol (D-3) 1,000 UNIT TABLET PO SCH (08:11)
[2016-08-12] MEDS: Cefdinir 300 MG CAPSULE PO SCH (08:12)
[2016-08-12] MEDS: predniSONE 20 MG TABLET PO SCH (08:12)
[2016-08-12] MEDS: Sennosides 8.6 MG TABLET PO SCH (08:12)
[2016-08-12] MEDS: Gabapentin 100 MG CAPSULE PO SCH (08:12)
[2016-08-12] MEDS: Torsemide 20 MG TABLET PO SCH (08:12)
[2016-08-12] MEDS: Cyanocobalamin (B-12) 1,000 MCG TABLET PO SCH (08:12)
[2016-08-12] MEDS: Spironolactone 25 MG TABLET PO SCH (08:12)
[2016-08-12] MEDS: Folic Acid 1 MG TABLET PO SCH (08:13)
--- NOTE | 2016-08-12 13:27 | Event Note ---
<Gasper Sandoval - Last Filed: 08/12/16 13:23> Date of Encounter: 08/12/16 Time of Encounter: 13:23 Mr. Salcido 66-year-old male who has seen the patient bedside this morning. There have been no clinical changes compared to yesterday's exam. He was to be discharged yesterday afternoon but due to obtaining a concentrator for his increased oxygen demand he had to stay at the hospital until this was obtained. His plan discharge today and follow-up with pulmonology and his primary care provider in the outpatient setting. <Aryan Olivares - Last Filed: 08/14/16 07:23> Date of Encounter: 08/14/16 I examined this patient and my medical decision-making was reviewed with the PILOT PLANT OPERATOR HELPER/PA/Advanced Practice Nurse/Resident Physician. I agree with the documented findings, disposition and treatment plan as described except to the extent set forth below.
== END 2016-08-12 14:24 | disposition home or self-care (01) | DRG 189 ==
LOC: EMEROO 12:38 → 3NENU 14:22 → 2NENU 19:01
PROVIDERS: ADMIT Internal Medicine; ATTEND Internal Medicine

== ENCOUNTER 2016-10-02 23:49 | Inpatient (IN) ==
[2016-10-03] MEDS ORDERED: *HR* HYDROmorphone (PF) 1 MG/ML SYRINGE IVP ONE (01:21)
--- NOTE | 2016-10-03 01:23 | Emergency Department Note ---
Disposition Clinical Impression: Lower extremity edema Cellulitis Qualifiers: Site of cellulitis: extremity Site of cellulitis of extremity: lower extremity Laterality: left Qualified Code(s): L03.116 - Cellulitis of left lower limb Disposition: Admitted As Inpatient Condition: Good Time of Disposition: 06:15 General Adult HPI - General Chief complaint: ED Extremity Problem,Nontraumatic Stated complaint: swollen legs just got out of hospital Time Seen by Provider: 10/03/16 00:57 Source: patient, family, EMS Limitations: no limitations Nursing Notes Reviewed: Yes Vital Signs Reviewed: Yes - History of Present Illness HPI Narrative: Patient release from the hospital recently for bilateral pulmonary embolism. He is now reporting to the emergency department complaining of a left lower extremity swelling erythema and ecchymosis. Also complaining of ecchymosis to his lower abdomen. He believes that his abdomen is somewhat distended. He denies any abdominal pain or nausea or vomiting. He has no urinary symptoms. States that it is hard to ambulate on his leg because of the pain. Pain Scale: 9 - Related Data Home Medications Medication Instructions Recorded Confirmed Albuterol Inhaler 90 IH Q4-6H PRN 10/03/16 Albuterol Neb 10/03/16 Aspirin 81 PO DAILY 10/03/16 Calcium + D Soft Chewable Tab 500 PO BID 10/03/16 Docusate Sodium 100 PO BID 10/03/16 Ferrous Sulfate 325 PO BID 10/03/16 Folic Acid 1 PO DAILY 10/03/16 Melatonin 3 PO DAILY 10/03/16 Simvastatin 20 PO DAILY 10/03/16 Spironolactone 25 PO DAILY 10/03/16 Tiotropium 2.5 IH DAILY 10/03/16 Torsemide 20 PO BID 10/03/16 Trihexyphenidyl HCl 2 PO TID 10/03/16 Warfarin 7.5 PO DAILY 10/03/16 Allergies Allergy/AdvReac Type Severity Reaction Status Date / Time hydrochlorothiazide Allergy Rash Verified 07/18/16 23:25 Review of Systems: Patient denies any fevers or chills. He does report left lower extremity swelling and ecchymosis as well as pain. Also complaining of a ulcer to his buttocks. Denies any shortness of breath or chest pain. Denies any abdominal pain but does think his abdomen is somewhat swollen. Waning of bruising to his abdomen. Denies any hematochezia melena hematemesis. Denies any nausea vomiting or diarrhea. All systems ED: reviewed and negative except as stated. Past Medical History - Past Medical History Medical history: Reports: cancer, CHF, COPD, DVT, hyperlipidemia, hypertension, pulmonary embolus, renal disease, valvular heart disease, other Surgical history: Reports: appendectomy, heart valve replacement, orthopedic, other (back surgery, carpal tunnel surgery), other Psychiatric history: Reports: panic disorder, PTSD - Social History Smoking Status: Former smoker Smokeless Tobacco Status: No Alcohol use: Reports: none Drug use: Reports: none Physical Exam - General Limitations: no limitations General appearance: alert, in no apparent distress - Head Head exam: atraumatic, normocephalic, normal inspection - Eye Eye exam: Present: normal appearance, PERRL, EOMI - ENT ENT exam: normal exam, normal oropharynx, mucous membranes moist - Neck Neck exam: Present: normal inspection, full ROM, trachea midline - Chest Chest inspection: Present: normal inspection, symmetric chest wall rise. Absent : tenderness, rash - Respiratory Respiratory exam: Present: normal lung sounds bilaterally (However somewhat diminished in the bases.), respiratory distress (H and appears to be in mild distress however states that this is normal.). Absent: accessory muscle use - Cardiovascular Cardiovascular exam: Present: regular rate, normal rhythm, normal heart sounds - Abdominal Exam Abdominal exam: Present: soft, Non-Tender, normal bowel sounds, other (Large area of ecchymosis to the lower abdomen consistent with Lovenox shots.). Absent : tenderness, distention, guarding, rebound, rigidity, organomegaly - Extremities Exam Extremities exam: Present: normal inspection, full ROM, pedal edema, other ( Edema and cellulitic changes to left lower extremity. Erythema to both lower extremities bilaterally. Left lower extremity has warmth.). Absent: tenderness - Back Exam Back exam: Present: normal inspection, full ROM. Absent: tenderness - Neurological Exam Neurological exam: Present: alert, oriented X3 - Psychiatric Psychiatric exam: Present: normal affect, normal mood - Skin Skin exam: Present: warm, dry, intact, normal color, other (Patient does have skin breakdown to the right buttocks area.) Course Course Narrative: Male patient complaining of left lower extremity swelling. States that this began last night. He does have bilateral lower extremity edema however last night the swelling redness and warmth got worse. He was recently released from the hospital for multiple pulmonary embolism and is on heparin at this time subcutaneously. Is also complaining of an ulcer to his buttocks. He said his shortness of breath is no different than normal. He is an obese male. He denies any chest pain. Patient is not febrile while here. He states he has not had any fevers at home. He does appear to be tired however it is in the middle of the night. He is not tachycardic. I am concerned for cellulitis of this left lower extremity. It does have an orange peel appearance and is warm to the touch. Of note he has some ecchymosis to his lower abdomen that is consistent with his heparin shots. The thinks that his abdomen is slightly more swollen than normal. The patient denies any nausea vomiting diarrhea or abdominal pain. Lung sounds are relatively clear however diminished in the bases. Heart tones are normal. We will get basic lab workup on patient and likely admit IV antibiotics for his cellulitis to his left lower extremity. - Consultations Consultation #1: Dr Solitario accepted the patient stable condition. He is requesting we order a CT of patient's abdomen. I have ordered this. Time: 03:25 Vital Signs Temperature 98.2 F 10/02/16 23:58 Pulse Rate 95 10/02/16 23:58 Respiratory Rate 18 10/02/16 23:58 Blood Pressure 138/80 10/02/16 23:58 O2 Sat by Pulse Oximetry 97 10/02/16 23:58 Temperature 98.7 F 10/03/16 06:32 Pulse Rate 93 10/03/16 06:32 Respiratory Rate 16 10/03/16 06:32 Blood Pressure 117/74 10/03/16 06:32 O2 Sat by Pulse Oximetry 97 10/03/16 06:32 Oxygen Delivery Oxygen Delivery Nasal Cannula Medical Decision Making - Medical Records Medical records reviewed: Yes I reviewed the patient's medical records. - Lab Data Lab results reviewed: Yes I reviewed the patient's lab results. Result diagrams: 10/03/16 01:50 10/03/16 01:50 Lab Results 10/03/16 10/03/16 10/03/16 Range/Units 01:50 01:50 01:50 WBC 7.8 (4.3-11.1) K/mcL RBC 2.92 L (4.19-5.50) M/mcL Hgb 8.3 L (12.9-16.9) g/dL Hct 27.7 L (37.5-50.1) % MCV 94.9 (83.0-100.0) fL MCH 28.4 (28.0-33.3) pg MCHC 30.0 L (31.6-35.5) g/dL RDW 15.5 H (11.5-14.5) % Plt Count 180 (140-400) K/mcL MPV 10.3 (9.4-12.4) fL Immature Gran % 1.2 (0-4) % Seg Neutrophils % 77.3 % Lymphocytes % 9.8 % Monocytes % 9.9 % Eosinophils % 1.5 % Basophils % 0.3 % Neutrophils # 6.0 (1.6-8.9) K/mcL Lymphocytes # 0.8 (0.6-4.6) K/mcL Monocytes # 0.8 (0.0-1.3) K/mcL Eosinophils # 0.1 (0.0-0.6) K/mcL Basophils # 0.0 (0.0-0.2) K/mcL Immature Plt Fraction 5.7 (1.1-6.1) % PT (9.4-12.1) Seconds INR Sodium 143 (136-145) mEq/L Potassium 3.9 (3.5-4.5) mEq/L Chloride 99 (98-109) mEq/L Carbon Dioxide 40 H* (19-29) mEq/L BUN 35 H (8-26) mg/dL Creatinine 1.26 H (0.72-1.25) mg/dL Est GFR ( Amer) > 60 (> 60) Est GFR (Non-Af Amer) 57 L (> 60) BUN/Creatinine Ratio 28 H (6-26) Glucose 116 H (70-99) mg/dL Calculated Osmolality 305 H (280-300) Lactic Acid 0.7 (0.5-2.2) mmol/L Calcium 9.2 (8.6-10.8) mg/dL Total Bilirubin 0.6 (0.2-1.2) mg/dL AST 34 (5-34) Units/L ALT 22 (0-55) Units/L Alkaline Phosphatase 71 (38-126) Units/L Serum Total Protein 6.0 (6.0-8.3) g/dL Albumin 3.0 L (3.5-5.0) g/dL Globulin 3.0 (2.4-3.5) g/dL Albumin/Globulin Ratio 1.0 L (1.1-2.2) Urine Color (Yellow) Urine Clarity (Clear) Urine pH (5.0-8.0) pH Units Ur Specific [place] (1.010-1.025) Urine Protein (Neg-Trace) mg/dL Urine Glucose (UA) (Normal) mg/dL Urine Ketones (Negative) mg/dL Urine Blood (Negative) Urine Nitrite (Negative) Urine Bilirubin (Negative) Urine Urobilinogen (Normal) mg/dL Ur Leukocyte Esterase (Negative) Ur Culture Indicated? (NO) 10/03/16 10/03/16 Range/Units 01:50 02:22 WBC (4.3-11.1) K/mcL RBC (4.19-5.50) M/mcL Hgb (12.9-16.9) g/dL Hct (37.5-50.1) % MCV (83.0-100.0) fL MCH (28.0-33.3) pg MCHC (31.6-35.5) g/dL RDW (11.5-14.5) % Plt Count (140-400) K/mcL MPV (9.4-12.4) fL Immature Gran % (0-4) % Seg Neutrophils % % Lymphocytes % % Monocytes % % Eosinophils % % Basophils % % Neutrophils # (1.6-8.9) K/mcL Lymphocytes # (0.6-4.6) K/mcL Monocytes # (0.0-1.3) K/mcL Eosinophils # (0.0-0.6) K/mcL Basophils # (0.0-0.2) K/mcL Immature Plt Fraction (1.1-6.1) % PT 27.9 H (9.4-12.1) Seconds INR 2.5 Sodium (136-145) mEq/L Potassium (3.5-4.5) mEq/L Chloride (98-109) mEq/L Carbon Dioxide (19-29) mEq/L BUN (8-26) mg/dL Creatinine (0.72-1.25) mg/dL Est GFR ( Amer) (> 60) Est GFR (Non-Af Amer) (> 60) BUN/Creatinine Ratio (6-26) Glucose (70-99) mg/dL Calculated Osmolality (280-300) Lactic Acid (0.5-2.2) mmol/L Calcium (8.6-10.8) mg/dL Total Bilirubin (0.2-1.2) mg/dL AST (5-34) Units/L ALT (0-55) Units/L Alkaline Phosphatase (38-126) Units/L Serum Total Protein (6.0-8.3) g/dL Albumin (3.5-5.0) g/dL Globulin (2.4-3.5) g/dL Albumin/Globulin Ratio (1.1-2.2) Urine Color Yellow (Yellow) Urine Clarity Clear (Clear) Urine pH 6.0 (5.0-8.0) pH Units Ur Specific [place] 1.021 (1.010-1.025) Urine Protein Negative (Neg-Trace) mg/dL Urine Glucose (UA) Normal (Normal) mg/dL Urine Ketones Negative (Negative) mg/dL Urine Blood Negative (Negative) Urine Nitrite Negative (Negative) Urine Bilirubin Negative (Negative) Urine Urobilinogen Normal (Normal) mg/dL Ur Leukocyte Esterase Negative (Negative) Ur Culture Indicated? NO (NO) - Radiology Data Radiology results reviewed: Yes I reviewed the patient's radiology results. Abdomen/Pelvis CT 10/03/16 03:23 IMPRESSION: 1. The nodular soft tissue densities in the anterior abdominal wall subcutaneous fat may be related to therapeutic injection or could represent small hematomas. 2. Diverticulosis without scan evidence for diverticulitis. D/ / Abdulkadir Preston MD / Abdulkadir Preston MD Interpreting Provider: Abdulkadir Preston MD Attestation Statement - Attestation Attestation: I, Michael Schmitt MD, personally evaluated this patient and discussed their management with the resident physician. I reviewed the resident's note and agree with the documented findings, medical decision making, and plan of care. 66-year-old male who was just recently released from the hospital for pulmonary emboli. He was started on Coumadin and has been taking Lovenox injections but just finished the injections a day or 2 ago. Yesterday he developed increased pain and swelling in the left lower leg and today has been unable to ambulate or bear weight on the leg. reports that this morning he was unable to even ambulate to the bathroom. He has some bruising around the medial aspects of the left ankle. No definite fever. No increased chest pain or shortness of breath or cough. On examination patient is a well-developed morbidly obese male in no acute distress. He is alert and oriented 3. There is no cyanosis or diaphoresis. Chest is nontender to palpation. Breath sounds are decreased but equal bilaterally with no rales or wheezes noted. Heart regular rate and rhythm. Abdomen soft and nontender with normal bowel sounds. Diffuse abdominal wall bruising secondary to his Lovenox injections. There is erythema of both lower extremities however the left lower extremity is significantly swollen and tender to palpation with some ecchymosis over the medial aspect of the left ankle. Neurovascular intact distally. Labs reviewed. Hemoglobin 8.3. INR 2.5. The hospitalist, Dr. Solitario, was consulted and accepted the admission of the patient.
[2016-10-03 02:02] LABS: Basophils % 0.3 %; Eosinophils # 0.1 K/mcL (0.0-0.6); Eosinophils % 1.5 %; Hematocrit 27.7 % (37.5-50.1); Hemoglobin 8.3 g/dL (12.9-16.9); Immature Granulocytes % 1.2 % (0-4); Immature Platelets 5.7 % (1.1-6.1); Lymphocytes # 0.8 K/mcL (0.6-4.6); Lymphocytes % 9.8 %; Mean Corpuscular Hemoglobin 28.4 pg (28.0-33.3); Mean Corpuscular Volume 94.9 fL (83.0-100.0); Mean Platelet Volume 10.3 fL (9.4-12.4); Monocytes # 0.8 K/mcL (0.0-1.3); Monocytes % 9.9 %; Platelet Count 180 K/mcL (140-400); Red Blood Count 2.92 M/mcL (4.19-5.50); Red Cell Distribution Width 15.5 % (11.5-14.5); Segmented Neutrophils % 77.3 %
[2016-10-03 02:14] LABS: Alanine Aminotransferase 22 Units/L (0-55); Alkaline Phosphatase 71 Units/L (38-126); Aspartate Amino Transferase 34 Units/L (5-34); BUN/Creatinine Ratio 28 (6-26); Bilirubin,Total 0.6 mg/dL (0.2-1.2); Blood Urea Nitrogen 35 mg/dL (8-26); Calcium 9.2 mg/dL (8.6-10.8); Chloride 99 mEq/L (98-109); Glucose 116 mg/dL (70-99); Osmolality,Calculated 305 (280-300); Potassium 3.9 mEq/L (3.5-4.5); Sodium 143 mEq/L (136-145); eGFR For African Americans > 60 (> 60); eGFR For Non-African Americans 57 (> 60)
[2016-10-03 02:16] LABS: Carbon Dioxide 40 mEq/L (19-29)
[2016-10-03 02:30] LABS: Bilirubin,Urine Negative (Negative); Blood,Urine Negative (Negative); Clarity,Urine Clear (Clear); Color,Urine Yellow (Yellow); Glucose,Urine (UA) Normal (Normal); Ketones,Urine Negative (Negative); Leukocyte Esterase,Urine Negative (Negative); Nitrite,Urine Negative (Negative); Protein,Urine Negative (Neg-Trace); Specific Gravity,Urine 1.021 (1.010-1.025); Urobilinogen,Urine Normal (Normal)
[2016-10-03 03:25] LABS: INR 2.5; Prothrombin Time 27.9 Seconds (9.4-12.1)
[2016-10-03] MEDS ORDERED: Vancomycin 1,000 MG in D5% in Water 250 ML IVPB ONE (03:26)
[2016-10-03 08:53] LABS: ABG Base Excess 14.8 mEq/L (-2.0 to 3.0); ABG HCO3 41.8 mEQ/L (21-27); ABG Oxygen Saturation 96 % (95-98); ABG PCO2 69 mmHg (35-45); ABG PH 7.39 pH Units (7.32-7.45); ABG PO2 80 mmHg (85-104); ABG TCO2 43.9 mEq/L (20-26)
[2016-10-03 08:54] LABS: Blood Gas FiO2 32 %
[2016-10-03] MEDS ORDERED: Ondansetron 4 MG/2 ML VIAL IVP PRN (09:58)
[2016-10-03] MEDS ORDERED: Naloxone 0.4 MG/ML INJ IVP PRN (09:58)
[2016-10-03] MEDS ORDERED: Ipratropium/Albuterol Neb 3 ML IH PRN (10:11)
[2016-10-03] MEDS: Torsemide 20 MG TABLET PO SCH ×2 (10:57→21:19)
--- NOTE | 2016-10-03 11:57 | Internal Med History&Physical ---
Date of Encounter: 10/03/16 Time of Encounter: 08:00 Assessment and Plan (1) Cellulitis Current visit: Yes Status: Acute Patient has leg swelling. Skin redness and warmth. Consider acute cellulitis. - We will continue vancomycin, dosing by pharmacy. - We will order Doppler bilateral legs to rule out DVT considering patient has recent PE. Patient is at high risk because of his vancomycin, need close monitoring. Qualifiers: Site of cellulitis: extremity Site of cellulitis of extremity: lower extremity Laterality: left Qualified Code(s): L03.116 - Cellulitis of left lower limb (2) Pulmonary embolism Current visit: Yes Status: Acute Patient has a recent pulmonary embolism treated in [facility] (no records in our hospital). He was given coumadin bridged by Lovenox. Right now on Coumadin only, INR is therapeutic. We will continue Coumadin and closely follow up PT/INR. Qualifiers: Pulmonary embolism type: other Chronicity: chronic Acute cor pulmonale presence: without acute cor pulmonale Qualified Code(s): I27.82 - Chronic pulmonary embolism (3) Aortic aneurysm Current visit: Yes Status: Acute Continue outpatient follow-up Qualifiers: Aortic location: thoracic aorta Presence of rupture: without rupture Qualified Code(s): I71.2 - Thoracic aortic aneurysm, without rupture (4) History of aortic valve replacement Current visit: Yes Status: Acute Replacement of aortic valve with Bio-valve. (5) VINCE treated with BiPAP Current visit: No Status: Chronic Continue BiPAP during night and as needed during daytime. (6) HLD (hyperlipidemia) Current visit: No Status: Chronic Qualifiers: Hyperlipidemia type: unspecified Qualified Code(s): E78.5 - Hyperlipidemia , unspecified (7) COPD (chronic obstructive pulmonary disease) Current visit: No Status: Chronic No signs of exacerbation. Continue home medications. Qualifiers: COPD type: unspecified COPD Qualified Code(s): J44.9 - Chronic obstructive pulmonary disease, unspecified (8) CKD (chronic kidney disease), stage III Current visit: No Status: Chronic Creatinine is at baseline. (9) Morbid obesity Current visit: No Status: Chronic Need lifestyle modification. (10) Anemia Current visit: No Status: Acute Hemoglobin 8.3. Patient has multiple bruises on the abdominal wall, which is caused by recent lovenox injection. Otherwise no signs of active bleeding. Previous workup shows iron deficiency anemia. We will closely monitor H&H. Qualifiers: Anemia type: iron deficiency Iron deficiency anemia type: chronic blood loss Qualified Code(s): D50.0 - Iron deficiency anemia secondary to blood loss (chronic) (11) Diastolic heart failure Current visit: No Status: Acute Continue diuretics. Patient appears euvolemic. Qualifiers: Heart failure chronicity: acute on chronic Qualified Code(s): I50.33 - Acute on chronic diastolic (congestive) heart failure (12) DVT prophylaxis Current visit: No Status: Acute Patient is on Coumadin Internal Medicine - H&P: HPI Chief complaint: Leg redness and swelling. Admitted From: Home Plans for Post Hospital Care: Home History of present illness: Mr. Salcido is a 66 year old male with history of COPD, VINCE need a home BiPAP, diastolic CHF, aortic aneurysm, history of aortic valve replacement, recent diagnosed PE on Coumadin, CKD, morbid obesity presented to ER for bilateral leg swelling and redness of skin. Patient said symptoms started from 6 days ago, he has fever and chills. Denies nausea. Denies chest pain or shortness of breath. Patient has pain of both legs, rate as 6 out of 10. In emergency room , He is afebrile, bilateral leg redness was considered cellulitis. Patient was admitted for further management. I discussed the CODE STATUS with patient. He is full code. Past Med Surg Social Fam HX - Past Medical History Medical history: cancer, CHF, COPD, DVT, hyperlipidemia, hypertension, pulmonary embolus, renal disease, valvular heart disease, other Psychiatric history: panic disorder, PTSD - Past Surgical History Surgical History: appendectomy, heart valve replacement, orthopedic, other ( back surgery, carpal tunnel surgery), other - Social History Smoking Status: Former smoker Smokeless Tobacco Status: No Alcohol use: none Drug use: none - Family History Father History Unknown: Yes Adopted: No Family Member Ethnicity: Non- Living Status: Hx Family Cardiac Disorders: Yes (uncles) Hx Family Respiratory Disorders: No Hx Family Cancer: No Hx Family GI Disorders: No Hx Family Endocrine Disorder: No Hx Family Neuromuscular Disorders: No Hx Family Neurologic Disorders: No Hx Family HEENT Disorders: No Hx Family Autoimmune Disorders: No Mother History Unknown: Yes Adopted: No Family Member Ethnicity: Non- Living Status: Hx Family Cardiac Disorders: No Hx Family Respiratory Disorders: No Hx Family Cancer: No Hx Family GI Disorders: No Hx Family Endocrine Disorder: No Hx Family Neuromuscular Disorders: No Hx Family Neurologic Disorders: Yes (CVA.) Hx Family HEENT Disorders: No Hx Family Autoimmune Disorders: No Internal Medicine - H&P: Meds Albuterol Inhaler 90 IH Q4-6H PRN 10/03/16 [History] Albuterol Neb 10/03/16 [History] Aspirin 81 PO DAILY 10/03/16 [History] Calcium + D Soft Chewable Tab 500 PO BID 10/03/16 [History] Docusate Sodium 100 PO BID 10/03/16 [History] Ferrous Sulfate 325 PO BID 10/03/16 [History] Folic Acid 1 PO DAILY 10/03/16 [History] Melatonin 3 PO DAILY 10/03/16 [History] Simvastatin 20 PO DAILY 10/03/16 [History] Spironolactone 25 PO DAILY 10/03/16 [History] Tiotropium 2.5 IH DAILY 10/03/16 [History] Torsemide 20 PO BID 10/03/16 [History] Trihexyphenidyl HCl 2 PO TID 10/03/16 [History] Warfarin 7.5 mg PO DAILY 10/03/16 [History] 3 Allergy/AdvReac Type Severity Reaction Status Date / Time hydrochlorothiazide Allergy Rash Verified 07/18/16 23:25 All Systems PM: A 10-system review of systems was performed and is negative for pertinent findings except as documented above in the HPI. - Constitutional Vitals: Temp Pulse Resp BP Pulse Ox 98.8 F 80 16 122/71 98 10/03/16 11:07 10/03/16 11:07 10/03/16 11:07 10/03/16 11:07 10/03/16 11:07 General appearance: Present: A&O X 3, answers questions appropriately - Head Head exam: Present: atraumatic, normocephalic - Eye Eye exam: Present: PERRL, conjuntiva pink, sclera anicteric Pupils: Present: PERRL - Neck Neck exam general surgery: Present: supple, trachea midline. Absent: lymphadenopathy - Respiratory Respiratory exam: Present: CTAB. Absent: accessory muscle use, rales, rhonchi, wheezes - Cardiovascular Cardiovascular exam: Present: RRR, +S1, +S2. Absent: diastolic murmur, gallop, rubs, systolic murmur - GI/Abdominal GI/Abdominal exam: Present: normal bowel sounds, soft, no peritoneal signs. Absent: distended, tenderness Additional comments: Multiple bruises on the abdominal wall. - Extremities Exam Extremities exam: Present: pedal edema (Bilateral pedal edema.), warm, radial pulses palpable and symmetrical. Absent: calf tenderness, cyanotic - Neurological Exam Neurological exam: Present: CN II-XII intact, oriented X3, no focal deficits. Absent: pronater drift, facial droop, speech deficit - Skin Skin exam: Present: dry, erythema (Bilateral leg skin redness and warmth. With mild tenderness.), intact Internal Med - H&P Results - Labs CBC & Chem 7: 10/03/16 01:50 10/03/16 01:50 - EKG Data -: EKG Interpreted by Myself EKG shows normal: sinus rhythm Rate: normal
[2016-10-03] MEDS: Vancomycin 2,000 MG in D5% in Water 500 ML IVPB SCH (16:35)
[2016-10-03] MEDS ORDERED: Warfarin perPT PO PRN (18:00)
[2016-10-03] MEDS ORDERED: *HR* Warfarin 7.5 MG TABLET PO SCH (18:00)
[2016-10-03] MEDS: Acetaminophen 325 MG TABLET PO PRN (18:12)
[2016-10-03] MEDS ORDERED: *HR* OxyCODONE/APAP 5/325 TABLET PO ONE (22:46)
[2016-10-04 04:58] LABS: Basophils % 0.1 %; Eosinophils # 0.2 K/mcL (0.0-0.6); Eosinophils % 2.2 %; Hematocrit 27.5 % (37.5-50.1); Hemoglobin 8.1 g/dL (12.9-16.9); Immature Platelets 5.3 % (1.1-6.1); Lymphocytes # 0.7 K/mcL (0.6-4.6); Lymphocytes % 8.9 %; Mean Corpuscular HGB Conc 29.5 g/dL (31.6-35.5); Mean Corpuscular Hemoglobin 28.4 pg (28.0-33.3); Mean Corpuscular Volume 96.5 fL (83.0-100.0); Mean Platelet Volume 11.1 fL (9.4-12.4); Monocytes # 0.9 K/mcL (0.0-1.3); Monocytes % 12.1 %; Neutrophils # 5.6 K/mcL (1.6-8.9); Platelet Count 193 K/mcL (140-400); Red Blood Count 2.85 M/mcL (4.19-5.50); Red Cell Distribution Width 15.8 % (11.5-14.5); Segmented Neutrophils % 75.7 %
[2016-10-04 05:12] LABS: BUN/Creatinine Ratio 21 (6-26); Calcium 8.4 mg/dL (8.6-10.8); Carbon Dioxide 37 mEq/L (19-29); Chloride 99 mEq/L (98-109); Glucose 107 mg/dL (70-99); Magnesium 2.2 mg/dL (1.6-2.6); Osmolality,Calculated 298 (280-300); Sodium 142 mEq/L (136-145); eGFR For African Americans > 60 (> 60); eGFR For Non-African Americans > 60 (> 60)
[2016-10-04 05:14] LABS: Blood Urea Nitrogen 23 mg/dL (8-26); Potassium 4.1 mEq/L (3.5-4.5)
[2016-10-04] MEDS: Torsemide 20 MG TABLET PO SCH ×2 (07:51→20:21)
[2016-10-04] MEDS: Acetaminophen 325 MG TABLET PO PRN ×2 (08:05→14:43)
[2016-10-04] MEDS ORDERED: Piperacillin/Tazobactam 3.375 GM in D5% in Water (Mini-Bag+) 100 ML IVPB SCH (08:30)
[2016-10-04 08:41] LABS: INR 3.2; Prothrombin Time 34.8 Seconds (9.4-12.1)
--- NOTE | 2016-10-04 08:45 | Internal Med Progress Note ---
Date of Encounter: 10/04/16 Time of Encounter: 08:43 - Assessment and plan (1) Cellulitis Current Visit: Yes Status: Acute Assessment and plan: LLE cellulitis continue empiric IV abx will de-escalate therapy as patient clinically improves f/u b/l venous doppler to r/o DVT Qualifiers: Site of cellulitis: extremity Site of cellulitis of extremity: lower extremity Laterality: left Qualified Code(s): L03.116 - Cellulitis of left lower limb (2) Anemia Current Visit: No Status: Acute Assessment and plan: H&H low but acceptable no acute bleeding reported at this time continue home dose of ferrous sulfate will closely monitor H&H and transfuse as needed Qualifiers: Anemia type: iron deficiency Iron deficiency anemia type: chronic blood loss Qualified Code(s): D50.0 - Iron deficiency anemia secondary to blood loss (chronic) (3) CKD (chronic kidney disease), stage III Current Visit: No Status: Chronic Assessment and plan: renal function at baseline continue to monitor (4) COPD (chronic obstructive pulmonary disease) Current Visit: No Status: Chronic Assessment and plan: not in acute exacerbation continue home medications O2 supplementation bipap support as needed Qualifiers: COPD type: unspecified COPD Qualified Code(s): J44.9 - Chronic obstructive pulmonary disease, unspecified (5) DVT prophylaxis Current Visit: No Status: Acute Assessment and plan: anticoagulated with coumadin (6) HLD (hyperlipidemia) Current Visit: No Status: Chronic Assessment and plan: continue statin support Qualifiers: Hyperlipidemia type: unspecified Qualified Code(s): E78.5 - Hyperlipidemia , unspecified (7) Hypertension Current Visit: No Status: Chronic Qualifiers: Hypertension type: essential hypertension Qualified Code(s): I10 - Essential (primary) hypertension (8) VINCE treated with BiPAP Current Visit: No Status: Chronic Assessment and plan: continue bipap support avoid narcotic therapy but if needed, use with caution (9) Pulmonary embolism Current Visit: Yes Status: Acute Assessment and plan: continue Coumadin goal INR: 2-3 will hold today's coumadin dose given INR of 3.2 will continue to closely monitor INR Qualifiers: Pulmonary embolism type: other Chronicity: chronic Acute cor pulmonale presence: without acute cor pulmonale Qualified Code(s): I27.82 - Chronic pulmonary embolism - Subjective Interval history: Patient seen and examined with present at bedside. Pt reports of feeling better compared to the previous day. Denies any pain at this time. Pt is morbidly obese and has severe sleep apnea, he became unresponsive after receiving a dose of narcotic pain medication in the ER, he improved with bipap support. Currently pain under control, will use narcotic therapy with caution. - Constitutional Vitals: Temp Pulse Resp BP Pulse Ox 98.0 F 90 18 108/64 94 10/04/16 06:40 10/04/16 06:40 10/04/16 06:40 10/04/16 06:40 10/04/16 08:09 General appearance: Present: cooperative, A&O X 3, morbidly obese, no acute distress, answers questions appropriately - Head Head exam: Present: atraumatic, normocephalic - Eye Eye exam: Present: conjuntiva pink, sclera anicteric - Respiratory Respiratory exam: Present: decreased breath sounds. Absent: respiratory distress, wheezes - Cardiovascular Cardiovascular exam: Present: RRR, +S1, +S2. Absent: diastolic murmur, gallop, rubs, systolic murmur - GI/Abdominal GI/Abdominal exam: Present: distended (obese), normal bowel sounds, soft, no peritoneal signs. Absent: tenderness - Extremities Exam Extremities exam: Present: warm, radial pulses palpable and symmetrical (b/l LE chronic venous stasis, LLE erythema extending to mid bland-warm, tender to palpation ). Absent: calf tenderness - Neurological Exam Neurological exam: Present: alert, oriented X3 - Psychiatric Psychiatric exam: Present: normal affect, normal mood Internal Medicine: Result - Labs CBC & Chem 7: 10/04/16 04:09 10/04/16 04:09 Labs: Short CBC 10/04/16 Range/Units 04:09 WBC 7.3 (4.3-11.1) K/mcL Hgb 8.1 L (12.9-16.9) g/dL Hct 27.5 L (37.5-50.1) % Plt Count 193 (140-400) K/mcL Neutrophils # 5.6 (1.6-8.9) K/mcL BMP 10/04/16 04:09 Sodium 142 Potassium 4.1 Chloride 99 Carbon Dioxide 37 H BUN 23 D Creatinine 1.08 Glucose 107 H Calcium 8.4 L - ABG Interpretation ABG results: ABG ABG pH 7.39 pH Units (7.32-7.45) 10/03/16 08:42 ABG pCO2 69 mmHg (35-45) H 10/03/16 08:42 ABG pO2 80 mmHg (85-104) L 10/03/16 08:42 ABG O2 Saturation 96 % (95-98) 10/03/16 08:42 PT/INR, D-dimer PT 34.8 Seconds (9.4-12.1) H 10/04/16 08:27 Consult Discharge Plan - Plan [facility]errals: [facility]Primary Care Provider[facility] -
[2016-10-04] MEDS: Tiotropium 18 MCG inhalation IH SCH (11:07)
[2016-10-04] MEDS: Aspirin Enteric Coated 81 MG Tablet PO SCH (11:15)
[2016-10-04] MEDS: Folic Acid 1 MG TABLET PO SCH (11:15)
[2016-10-04] MEDS: Vancomycin 2,000 MG in D5% in Water 500 ML IVPB SCH (14:44)
--- NOTE | 2016-10-04 17:06 | Electrocardiograph Report ---
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
[2016-10-04] MEDS: Piperacillin/Tazobactam 3.375 GM in D5% in Water (Mini-Bag+) 100 ML IVPB SCH (20:20)
[2016-10-05] MEDS: Piperacillin/Tazobactam 3.375 GM in D5% in Water (Mini-Bag+) 100 ML IVPB SCH ×3 (05:25→18:57)
[2016-10-05 05:37] LABS: Basophils % 0.2 %; Eosinophils # 0.2 K/mcL (0.0-0.6); Eosinophils % 1.8 %; Hematocrit 29.3 % (37.5-50.1); Hemoglobin 8.5 g/dL (12.9-16.9); Immature Granulocytes % 0.9 % (0-4); Lymphocytes # 0.6 K/mcL (0.6-4.6); Lymphocytes % 6.6 %; Mean Corpuscular Hemoglobin 27.9 pg (28.0-33.3); Mean Corpuscular Volume 96.1 fL (83.0-100.0); Mean Platelet Volume 10.7 fL (9.4-12.4); Monocytes # 0.9 K/mcL (0.0-1.3); Monocytes % 9.2 %; Neutrophils # 7.5 K/mcL (1.6-8.9); Platelet Count 203 K/mcL (140-400); Prothrombin Time 32.6 Seconds (9.4-12.1); Red Blood Count 3.05 M/mcL (4.19-5.50); Red Cell Distribution Width 15.6 % (11.5-14.5); Segmented Neutrophils % 81.3 %
[2016-10-05 05:38] LABS: BUN/Creatinine Ratio 18 (6-26); Blood Urea Nitrogen 19 mg/dL (8-26); Calcium 8.7 mg/dL (8.6-10.8); Carbon Dioxide 38 mEq/L (19-29); Chloride 97 mEq/L (98-109); Glucose 96 mg/dL (70-99); Magnesium 2.1 mg/dL (1.6-2.6); Osmolality,Calculated 294 (280-300); Phosphorous 2.4 mg/dL (2.3-4.7); Potassium 4.1 mEq/L (3.5-4.5); Sodium 141 mEq/L (136-145); eGFR For African Americans > 60 (> 60); eGFR For Non-African Americans > 60 (> 60)
[2016-10-05] MEDS: Acetaminophen 325 MG TABLET PO PRN (06:06)
--- NOTE | 2016-10-05 07:07 | Venous Imaging Report ---
LE Venous Duplex Patient Name:Job Salcido Order Number:[id number] Procedure Date:10/04/2016 Date:9Age:66 yrs Gender:Male Location:[facility] Room #: 3NE22 Snow Removing Supervisor:Batsheva Tam Referring MD:Madison Brownlee MD liner roll changer:[facility] Angel MD:Rico Zimmerman MD Secondary Indications: Impressions: Normal bilateral lower extremity deep and superficial venous exam. Recommendations: Critical findings reported to Janette Escalante RN in person by Batsheva Tam. Findings Venous Duplex Results: Right: Venous imaging of the lower extremity reveals full patency and normal vessel compressibility of the right distal iliac, right common femoral, right superficial femoral, right popliteal, right posterior tibial, right peroneal, right great saphenous and right lesser saphenous. Doppler signals in the evaluated veins were normal. Left: Venous imaging of the lower extremity reveals full patency and normal vessel compressibility of the left distal iliac, left common femoral, left superficial femoral, left popliteal, left posterior tibial, left great saphenous and left lesser saphenous. Doppler signals in the evaluated veins were normal. Lower Extremity Venous Duplex Side Vein Compress Spontaneous Flow Augment Diameter (cm) Depth (cm) Left Peroneal Updated by Rico Zimmerman MD on 10/05/2016 7:01:19 AM electronically signed on 10/05/2016 7:02:03 AM with status of Final
[2016-10-05] MEDS: Tiotropium 18 MCG inhalation IH SCH (08:21)
[2016-10-05] MEDS: Torsemide 20 MG TABLET PO SCH (08:54)
[2016-10-05] MEDS: Folic Acid 1 MG TABLET PO SCH (08:54)
[2016-10-05] MEDS: Aspirin Enteric Coated 81 MG Tablet PO SCH (08:54)
--- NOTE | 2016-10-05 08:54 | Internal Med Progress Note ---
Date of Encounter: 10/05/16 Time of Encounter: 08:35 - Assessment and plan (1) Cellulitis Current Visit: Yes Status: Acute Assessment and plan: LLE cellulitis continue empiric IV abx will de-escalate therapy as patient clinically improves b/l venous doppler negative for DVT Qualifiers: Site of cellulitis: extremity Site of cellulitis of extremity: lower extremity Laterality: left Qualified Code(s): L03.116 - Cellulitis of left lower limb (2) Anemia Current Visit: No Status: Acute Assessment and plan: H&H low but acceptable no acute bleeding reported at this time continue home dose of ferrous sulfate will closely monitor H&H and transfuse as needed Qualifiers: Anemia type: iron deficiency Iron deficiency anemia type: chronic blood loss Qualified Code(s): D50.0 - Iron deficiency anemia secondary to blood loss (chronic) (3) CKD (chronic kidney disease), stage III Current Visit: No Status: Chronic Assessment and plan: renal function at baseline continue to monitor (4) COPD (chronic obstructive pulmonary disease) Current Visit: No Status: Chronic Assessment and plan: not in acute exacerbation continue home medications O2 supplementation bipap support as needed Qualifiers: COPD type: unspecified COPD Qualified Code(s): J44.9 - Chronic obstructive pulmonary disease, unspecified (5) DVT prophylaxis Current Visit: No Status: Acute Assessment and plan: anticoagulated with coumadin (6) HLD (hyperlipidemia) Current Visit: No Status: Chronic Assessment and plan: continue statin support Qualifiers: Hyperlipidemia type: unspecified Qualified Code(s): E78.5 - Hyperlipidemia , unspecified (7) VINCE treated with BiPAP Current Visit: No Status: Chronic Assessment and plan: continue bipap support avoid narcotic therapy but if needed, use with caution (8) Pulmonary embolism Current Visit: Yes Status: Acute Assessment and plan: continue Coumadin (pharmacist to dose Coumadin as per INR) goal INR: 2-3 will continue to closely monitor INR Qualifiers: Pulmonary embolism type: other Chronicity: chronic Acute cor pulmonale presence: without acute cor pulmonale Qualified Code(s): I27.82 - Chronic pulmonary embolism - Subjective Interval history: Patient seen and examined with present at bedside. Pt reports of feeling better compared to the previous day. Denies any pain at this time. He is resting in chair and states he is not able to ambulate much at baseline but is willing to participate with physical therapy and going to [facility] if needed. Will obtain PT evaluation. - Constitutional Vitals: Temp Pulse Resp BP Pulse Ox 98.6 F 104 18 107/62 93 10/05/16 06:32 10/05/16 06:32 10/05/16 06:32 10/05/16 06:32 10/05/16 06:32 General appearance: Present: cooperative, A&O X 3, morbidly obese, no acute distress, answers questions appropriately - Head Head exam: Present: atraumatic, normocephalic - Eye Eye exam: Present: conjuntiva pink, sclera anicteric - Respiratory Respiratory exam: Absent: respiratory distress, wheezes - Cardiovascular Cardiovascular exam: Present: RRR, +S1, +S2. Absent: diastolic murmur, gallop, rubs, systolic murmur - GI/Abdominal GI/Abdominal exam: Present: normal bowel sounds, soft, no peritoneal signs. Absent: distended, tenderness - Extremities Exam Extremities exam: Present: warm, radial pulses palpable and symmetrical (b/l LE chronic venous stasis, distal LLE erythema and edema ). Absent: calf tenderness - Neurological Exam Neurological exam: Present: alert, oriented X3 - Psychiatric Psychiatric exam: Present: normal affect, normal mood Internal Medicine: Result - Labs CBC & Chem 7: 10/05/16 05:07 10/05/16 05:07 Labs: Short CBC 10/05/16 Range/Units 05:07 WBC 9.2 (4.3-11.1) K/mcL Hgb 8.5 L (12.9-16.9) g/dL Hct 29.3 L (37.5-50.1) % Plt Count 203 (140-400) K/mcL Neutrophils # 7.5 (1.6-8.9) K/mcL BMP 10/05/16 05:07 Sodium 141 Potassium 4.1 Chloride 97 L Carbon Dioxide 38 H BUN 19 Creatinine 1.08 Glucose 96 Calcium 8.7 - ABG Interpretation ABG results: ABG ABG pH 7.39 pH Units (7.32-7.45) 10/03/16 08:42 ABG pCO2 69 mmHg (35-45) H 10/03/16 08:42 ABG pO2 80 mmHg (85-104) L 10/03/16 08:42 ABG O2 Saturation 96 % (95-98) 10/03/16 08:42 PT/INR, D-dimer PT 32.6 Seconds (9.4-12.1) H 10/05/16 05:07 Consult Discharge Plan - Plan [facility]errals: [facility] [Primary Care Provider] -
[2016-10-05] MEDS ORDERED: Haloperidol Lactate 5 MG/ML VIAL IM ONE (17:36)
[2016-10-05] MEDS ORDERED: Haloperidol Lactate 5 MG/ML VIAL ONE (17:37)
[2016-10-05] MEDS ORDERED: *HR* Warfarin 5 MG TABLET PO ONE (18:00)
[2016-10-05] MEDS ORDERED: Melatonin 3 MG TABLET PO SCH (18:00)
[2016-10-05 22:14] LABS: ABG Base Excess 16.3 mEq/L (-2.0 to 3.0); ABG HCO3 42.8 mEQ/L (21-27); ABG Oxygen Saturation 94 % (95-98); ABG PCO2 66 mmHg (35-45); ABG PH 7.42 pH Units (7.32-7.45); ABG PO2 69 mmHg (85-104); ABG TCO2 44.8 mEq/L (20-26)
[2016-10-05 22:16] LABS: Blood Gas FiO2 32 %
[2016-10-05 22:17] LABS: Blood Gas BiPAP(E) 12 cm H2O; Blood Gas BiPAP(I) 22 cm H2O
[2016-10-06] MEDS: Torsemide 20 MG TABLET PO SCH ×3 (01:08→22:04)
[2016-10-06] MEDS: Piperacillin/Tazobactam 3.375 GM in D5% in Water (Mini-Bag+) 100 ML IVPB SCH ×3 (03:43→22:03)
[2016-10-06] MEDS: Vancomycin 1,000 MG in D5% in Water 250 ML IVPB SCH (03:44)
[2016-10-06 05:39] LABS: Basophils % 0.4 %; Eosinophils # 0.2 K/mcL (0.0-0.6); Eosinophils % 2.8 %; Hematocrit 26.5 % (37.5-50.1); Hemoglobin 7.9 g/dL (12.9-16.9); Immature Granulocytes % 1.1 % (0-4); Lymphocytes # 0.9 K/mcL (0.6-4.6); Mean Corpuscular HGB Conc 29.8 g/dL (31.6-35.5); Mean Corpuscular Hemoglobin 28.5 pg (28.0-33.3); Mean Corpuscular Volume 95.7 fL (83.0-100.0); Monocytes # 0.6 K/mcL (0.0-1.3); Monocytes % 7.4 %; Neutrophils # 6.7 K/mcL (1.6-8.9); Platelet Count 199 K/mcL (140-400); Red Blood Count 2.77 M/mcL (4.19-5.50); Red Cell Distribution Width 15.8 % (11.5-14.5); Segmented Neutrophils % 78.3 %
[2016-10-06 05:49] LABS: INR 2.9; Prothrombin Time 32.3 Seconds (9.4-12.1)
[2016-10-06 05:52] LABS: BUN/Creatinine Ratio 18 (6-26); Blood Urea Nitrogen 19 mg/dL (8-26); Calcium 8.6 mg/dL (8.6-10.8); Carbon Dioxide 35 mEq/L (19-29); Chloride 98 mEq/L (98-109); Glucose 101 mg/dL (70-99); Magnesium 2.1 mg/dL (1.6-2.6); Osmolality,Calculated 292 (280-300); Phosphorous 2.4 mg/dL (2.3-4.7); Sodium 140 mEq/L (136-145); eGFR For African Americans > 60 (> 60); eGFR For Non-African Americans > 60 (> 60)
[2016-10-06] MEDS: Folic Acid 1 MG TABLET PO SCH (07:50)
[2016-10-06] MEDS: Aspirin Enteric Coated 81 MG Tablet PO SCH (07:50)
[2016-10-06 10:42] LABS: Hemoglobin 8.3 g/dL (12.9-16.9)
[2016-10-06] MEDS: Tiotropium 18 MCG inhalation IH SCH (10:53)
[2016-10-06] MEDS ORDERED: 0.9 % Sodium Chloride Mini Bag 100 ML ONE (12:30)
[2016-10-06] MEDS: Acetaminophen 325 MG TABLET PO PRN (12:34)
[2016-10-06] MEDS ORDERED: Piperacillin/Tazobactam 3.375 GM VIAL IVPB ONE (12:42)
--- NOTE | 2016-10-06 16:47 | Internal Med Progress Note ---
Date of Encounter: 10/06/16 Time of Encounter: 09:00 - Assessment and plan (1) Cellulitis Current Visit: Yes Status: Acute Assessment and plan: Clinically improving. Continue current antibiotics. Leg elevation. Supportive care. Physical therapy. Patient recommended placement to skilled rehabilitation. 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 Qualifiers: Site of cellulitis: extremity Site of cellulitis of extremity: lower extremity Laterality: left Qualified Code(s): L03.116 - Cellulitis of left lower limb (2) Anemia Current Visit: Yes Status: Chronic Assessment and plan: Chronic and stable Qualifiers: Anemia type: iron deficiency Iron deficiency anemia type: chronic blood loss Qualified Code(s): D50.0 - Iron deficiency anemia secondary to blood loss (chronic) (3) CKD (chronic kidney disease), stage III Current Visit: No Status: Chronic Assessment and plan: Renal function improved to baseline. (4) COPD (chronic obstructive pulmonary disease) Current Visit: No Status: Chronic Assessment and plan: Not in acute exacerbation. Continue bronchodilators as needed Qualifiers: COPD type: unspecified COPD Qualified Code(s): J44.9 - Chronic obstructive pulmonary disease, unspecified (5) DVT prophylaxis Current Visit: No Status: Acute Assessment and plan: With Coumadin. INR is therapeutic (6) HLD (hyperlipidemia) Current Visit: No Status: Chronic Assessment and plan: Continue Zocor Qualifiers: Hyperlipidemia type: unspecified Qualified Code(s): E78.5 - Hyperlipidemia , unspecified (7) Hypertension Current Visit: No Status: Chronic Assessment and plan: Blood pressure is well controlled Qualifiers: Hypertension type: essential hypertension Qualified Code(s): I10 - Essential (primary) hypertension (8) VINCE treated with BiPAP Current Visit: No Status: Chronic Assessment and plan: Use BiPAP while sleeping (9) Pulmonary embolism Current Visit: Yes Status: Acute Assessment and plan: On Coumadin Qualifiers: Pulmonary embolism type: other Chronicity: chronic Acute cor pulmonale presence: without acute cor pulmonale Qualified Code(s): I27.82 - Chronic pulmonary embolism - Subjective Interval history: Patient is awake and alert and sitting up in chair. Denies any new complaints at this time. Feels the swelling in his lower extremities is improving. No fever chills or night sweats. No nausea or vomiting. - Constitutional Vitals: Temp Pulse Resp BP Pulse Ox 98.0 F 83 18 95/48 97 10/06/16 15:53 10/06/16 15:53 10/06/16 15:53 10/06/16 15:53 10/06/16 15:53 General appearance: Present: cooperative, A&O X 3, morbidly obese, no acute distress, answers questions appropriately - Neck Neck exam general surgery: Present: supple, trachea midline. Absent: lymphadenopathy - Respiratory Respiratory exam: Present: CTAB. Absent: accessory muscle use, rales, rhonchi, wheezes - Cardiovascular Cardiovascular exam: Present: RRR, +S1, +S2. Absent: diastolic murmur, gallop, rubs, systolic murmur - GI/Abdominal GI/Abdominal exam: Present: normal bowel sounds, soft, no peritoneal signs. Absent: distended, tenderness - Extremities Exam Extremities exam: Present: pedal edema, warm, radial pulses palpable and symmetrical. Absent: calf tenderness, cyanotic Additional comments: Erythema involving both lower extremities up to the knee worse on the left Internal Medicine: Result - Labs CBC & Chem 7: 10/06/16 10:34 10/06/16 04:51 Labs: Short CBC 10/06/16 10/06/16 Range/Units 04:51 10:34 WBC 8.5 (4.3-11.1) K/mcL Hgb 7.9 L 8.3 L (12.9-16.9) g/dL Hct 26.5 L 28.0 L (37.5-50.1) % Plt Count 199 (140-400) K/mcL Neutrophils # 6.7 (1.6-8.9) K/mcL BMP 10/06/16 04:51 Sodium 140 Potassium 4.0 Chloride 98 Carbon Dioxide 35 H BUN 19 Creatinine 1.05 Glucose 101 H Calcium 8.6 - ABG Interpretation ABG results: ABG ABG pH 7.42 pH Units (7.32-7.45) 10/05/16 22:00 ABG pCO2 66 mmHg (35-45) H 10/05/16 22:00 ABG pO2 69 mmHg (85-104) L 10/05/16 22:00 ABG O2 Saturation 94 % (95-98) L 10/05/16 22:00 PT/INR, D-dimer PT 32.3 Seconds (9.4-12.1) H 10/06/16 04:51 Consult Discharge Plan - Plan [facility]errals: [facility] [Primary Care Provider] -
[2016-10-06] MEDS ORDERED: *HR* Warfarin 5 MG TABLET PO ONE (18:00)
[2016-10-06] MEDS ORDERED: Melatonin 3 MG TABLET PO SCH (21:00)
[2016-10-07] MEDS: Piperacillin/Tazobactam 3.375 GM in D5% in Water (Mini-Bag+) 100 ML IVPB SCH (05:20)
[2016-10-07] MEDS: Vancomycin 1,000 MG in D5% in Water 250 ML IVPB SCH (05:21)
[2016-10-07 06:52] LABS: INR 3.3; Prothrombin Time 36.8 Seconds (9.4-12.1)
[2016-10-07] MEDS: Tiotropium 18 MCG inhalation IH SCH (08:13)
[2016-10-07] MEDS: Folic Acid 1 MG TABLET PO SCH (08:36)
[2016-10-07] MEDS: Aspirin Enteric Coated 81 MG Tablet PO SCH (08:37)
[2016-10-07] MEDS: Torsemide 20 MG TABLET PO SCH (08:37)
[2016-10-07 11:36] VITALS: BP 124/76
--- NOTE | 2016-10-07 11:39 | Discharge Summary ---
Date of Encounter: 10/07/16 Time of Encounter: 08:45 - Discharge Diagnosis (1) Cellulitis Priority: Primary Status: Acute Qualifiers: Site of cellulitis: extremity Site of cellulitis of extremity: lower extremity Laterality: left Qualified Code(s): L03.116 - Cellulitis of left lower limb (2) Anemia Priority: Secondary Status: Chronic Qualifiers: Anemia type: iron deficiency Iron deficiency anemia type: chronic blood loss Qualified Code(s): D50.0 - Iron deficiency anemia secondary to blood loss (chronic) (3) CKD (chronic kidney disease), stage III Priority: Secondary Status: Chronic (4) COPD (chronic obstructive pulmonary disease) Priority: Secondary Status: Chronic Qualifiers: COPD type: unspecified COPD Qualified Code(s): J44.9 - Chronic obstructive pulmonary disease, unspecified (5) DVT prophylaxis Priority: Secondary Status: Acute (6) HLD (hyperlipidemia) Priority: Secondary Status: Chronic Qualifiers: Hyperlipidemia type: unspecified Qualified Code(s): E78.5 - Hyperlipidemia , unspecified (7) Hypertension Priority: Secondary Status: Chronic Qualifiers: Hypertension type: essential hypertension Qualified Code(s): I10 - Essential (primary) hypertension (8) VINCE treated with BiPAP Priority: Secondary Status: Chronic (9) Pulmonary embolism Priority: Secondary Status: Acute Qualifiers: Pulmonary embolism type: other Chronicity: chronic Acute cor pulmonale presence: without acute cor pulmonale Qualified Code(s): I27.82 - Chronic pulmonary embolism - Discharge Medications Prescriptions: Clindamycin [Cleocin] 450 mg PO Q6HR 10 Days Lactobacillus Acidophilus [Acidophilus] 1 each PO BID #20 tablet Warfarin perPT [Coumadin perPT] 1 each PO DAILY 30 Days Home Medications: Albuterol Sulfate [Proair Respiclick] 1 - 2 puff IH Q4H PRN 10/03/16 [History] Aspirin [Lo-Dose Aspirin EC] 81 mg PO DAILY 10/03/16 [History] Calcium Carbonate/Vitamin D3 [Calcium 500-Vit D3 200 Tablet] 1 tab PO BID [History] Docusate Sodium [Dok] 100 mg PO BID 10/03/16 [History] Ferrous Sulfate [Iron] 325 mg PO BID 10/03/16 [History] Folic Acid 1 mg PO DAILY 10/03/16 [History] Ipratropium/Albuterol Neb [Duoneb] 3 ml IH Q6HR 10/03/16 [History] Melatonin [Melatin] 3 mg PO QPM 10/03/16 [History] Polyethylene Glycol 3350 [MiraLAX] 17 gm PO DAILY 10/03/16 [History] Sennosides [Senna] 8.6 mg PO BID 10/03/16 [History] Simvastatin [Zocor] 20 mg PO HS 10/03/16 [History] Tiotropium [place] [Spiriva Respimat] 2 puff IH DAILY 10/03/16 [History] Trihexyphenidyl [Artane] 2 mg PO TID 10/03/16 [History] Clindamycin [Cleocin] 450 mg PO Q6HR 10 Days 10/07/16 [Rx] Lactobacillus Acidophilus [Acidophilus] 1 each PO BID #20 tablet 10/07/16 [Rx] Warfarin perPT [Coumadin perPT] 1 each PO DAILY 30 Days 10/07/16 [Rx] Allergies/Adverse Reactions: 3 Allergy/AdvReac Type Severity Reaction Status Date / Time hydrochlorothiazide Allergy Rash Verified 07/18/16 23:25 Procedures/tests Complete & Pending: Procedures Performed prior 72 hours Category Date Time Status EV venous imaging LE BI Routine Y 10/04/16 11:58 Completed Date of admission: 10/03/16 11:44 [facility] physician[facility] Consults: 10/05/16 08:47 Consult to Occupational Therapy [CONS] Routine Comment: Evaluate, develop and implement POC Reason for Consult: difficulty walking Consult to Physical Therapy [CONS] Routine Comment: Evaluate, develop and implement POC Reason for Consult: difficulty walking Consult to Concert Promoter [CONS] Routine Reason for SW Consult: d/c planning Discharging clinician: Rajinder Hui Anticipated date of discharge: 10/07/16 - Patient Status Disposition: Transfer SNF Condition: Good Functional capacity at discharge: uses cane/walker Overall status at discharge: patient is progressing back to baseline - Discharge Instructions Instructions: Cellulitis (DC) Follow Up With: [facility] [Primary Care Provider] - (In 1-2 weeks. Patient going to F. Patient will follow up with physician at [facility].) - Diet and Activity Activity: as per physical therapy Diet: low fat, low cholesterol, low salt diet Hospital course: Mr. Salcido is a 66 year old male patient with history of COPD, obstructive sleep apnea, chronic kidney disease stage III, pulmonary embolism, diastolic heart failure, anemia presented to the ER with complaints of worsening swelling and redness of skin involving both lower extremities but greater on the left. He was diagnosed with acute cellulitis involving the left lower extremity and was treated with IV antibiotics. Patient did have significant pedal edema in both lower extremities and was treated with diuretics also. His blood cultures were negative. He was evaluated by physical therapy and recommended placement to skilled rehabilitation. His cellulitis has mostly improved but patient does have persistent stasis dermatitis involving both lower extremities. Lower extremity edema has somewhat improved compared to initial presentation. During the patient's stay here he did develop an episode of agitation which was treated with Haldol. He responded well to this medication. Most likely this was an episode of delirium due to unfamiliar surroundings and acute infection. He has not had any further episodes since then. At this time, patient is stable to be discharged on oral antibiotics. He will continue to take his diuretic as prescribed. He can follow up with his primary care provider for further management of his bilateral lower extremity stasis dermatitis - Time Spent with Patient Total time spent providing and/or coordinating discharge services: Greater than 30 minutes (45 min) - Constitutional Vitals: Temp Pulse Resp BP Pulse Ox 98.5 F 93 16 114/68 99 10/07/16 06:39 10/07/16 06:39 10/07/16 08:14 10/07/16 06:39 10/07/16 08:44 General appearance: Present: cooperative, A&O X 3, morbidly obese, no acute distress, answers questions appropriately - Eye Eye exam: Present: EOMI, PERRL, conjuntiva pink, sclera anicteric - Respiratory Respiratory exam: Present: CTAB. Absent: accessory muscle use, rales, rhonchi, wheezes - Cardiovascular Cardiovascular exam: Present: RRR, +S1, +S2. Absent: diastolic murmur, gallop, rubs, systolic murmur - Extremities Exam Extremities exam: Present: pedal edema (Bilateral lower extremity is greater on the left), warm, radial pulses palpable and symmetrical. Absent: calf tenderness, cyanotic Additional comments: Stasis/venous dermatitis involving both lower extremities - Neurological Exam Neurological exam: Present: alert, oriented X3, no focal deficits. Absent: facial droop, speech deficit
--- NOTE | 2016-10-07 11:45 | Physician Discharge Referral ---
ExtendedCare Referral Info Provider in Charge after Transfer: PCP Institutional Level of Care: Skilled - Diagnosis (1) Cellulitis Priority: Primary Status: Acute (2) Anemia Priority: Secondary Status: Chronic (3) CKD (chronic kidney disease), stage III Priority: Secondary Status: Chronic (4) COPD (chronic obstructive pulmonary disease) Priority: Secondary Status: Chronic (5) DVT prophylaxis Priority: Secondary Status: Acute (6) HLD (hyperlipidemia) Priority: Secondary Status: Chronic (7) Hypertension Priority: Secondary Status: Chronic (8) VINCE treated with BiPAP Priority: Secondary Status: Chronic (9) Pulmonary embolism Priority: Secondary Status: Acute Prognosis: Fair Aware of Diagnosis: Patient, Family Aware of Prognosis: Patient, Family - Transfer Medications Prescriptions: Clindamycin [Cleocin] 450 mg PO Q6HR 10 Days Lactobacillus Acidophilus [Acidophilus] 1 each PO BID #20 tablet Warfarin perPT [Coumadin perPT] 1 each PO DAILY 30 Days Home Medications: Albuterol Sulfate [Proair Respiclick] 1 - 2 puff IH Q4H PRN 10/03/16 [History] Aspirin [Lo-Dose Aspirin EC] 81 mg PO DAILY 10/03/16 [History] Calcium Carbonate/Vitamin D3 [Calcium 500-Vit D3 200 Tablet] 1 tab PO BID [History] Docusate Sodium [Dok] 100 mg PO BID 10/03/16 [History] Ferrous Sulfate [Iron] 325 mg PO BID 10/03/16 [History] Folic Acid 1 mg PO DAILY 10/03/16 [History] Ipratropium/Albuterol Neb [Duoneb] 3 ml IH Q6HR 10/03/16 [History] Melatonin [Melatin] 3 mg PO QPM 10/03/16 [History] Polyethylene Glycol 3350 [MiraLAX] 17 gm PO DAILY 10/03/16 [History] Sennosides [Senna] 8.6 mg PO BID 10/03/16 [History] Simvastatin [Zocor] 20 mg PO HS 10/03/16 [History] Tiotropium [place] [Spiriva Respimat] 2 puff IH DAILY 10/03/16 [History] Trihexyphenidyl [Artane] 2 mg PO TID 10/03/16 [History] Clindamycin [Cleocin] 450 mg PO Q6HR 10 Days 10/07/16 [Rx] Lactobacillus Acidophilus [Acidophilus] 1 each PO BID #20 tablet 10/07/16 [Rx] Warfarin perPT [Coumadin perPT] 1 each PO DAILY 30 Days 10/07/16 [Rx] Allergies/Adverse Reactions: 3 Allergy/AdvReac Type Severity Reaction Status Date / Time hydrochlorothiazide Allergy Rash Verified 07/18/16 23:25 - Respiratory Orders Smoking Cessation: Smoking cessation has been advised. For more information, call the [place] Tobacco Quit Line at 7-551-LYKY-NOW. - Lab Orders Lab Orders: Other (include drug levels w/frequency) (PT/INR on 10/08/16 and Every Wednesday) - Ancillary Orders May consult with Dentist, Coal Picker, Ambulance Dispatcher PRN - Advance Directives Code Status: Full Code - Mobility Orders Ambulate (per PT) - Rehabiliation Orders Rehab Potential: Fair Rehab Orders: Evaluation for Physical Therapy, Evaluation for Occupational Therapy - Diet Orders Cardiac CERTIFICATION: I certify that the transfer of the above named patient to an Extended Care Facility is necessary for the continuing treatment of the diagnosis listed. The above information is true and accurate reflection of patient's current condition. Confidential - Redisclosure prohibited without a patient's written consent.
[2016-10-07] MEDS ORDERED: Aminoglycoside Consult 1 EACH MC ONE (13:53)
== END 2016-10-07 13:54 | DRG 602 ==
LOC: EMEROO 23:49 → 3NENU 23:49 → SUATTDRO 10-03 11:44
PROVIDERS: ADMIT Pediatrics; ATTEND Internal Medicine

== ENCOUNTER 2016-11-21 03:37 | Inpatient (IN) ==
[2016-11-21 06:15] LABS: ABG Base Excess 8 mEq/L (-2 to 3); ABG HCO3 35 mEq/L (21-27); ABG Oxygen Saturation 95 % (95-98); ABG PCO2 59 mmHg (35-45); ABG PH 7.38 pH Units (7.32-7.45); ABG PO2 81 mmHg (85-104); ABG TCO2 37 mEq/L (20-26)
[2016-11-21 06:37] LABS: Basophils % 0.2 %; Hematocrit 30.8 % (37.5-50.1); Hemoglobin 9.1 g/dL (12.9-16.9); Immature Granulocytes % 0.2 % (0-4); Lymphocytes % 4.5 %; Mean Corpuscular HGB Conc 29.5 g/dL (31.6-35.5); Mean Corpuscular Hemoglobin 27.5 pg (28.0-33.3); Mean Corpuscular Volume 93.1 fL (83.0-100.0); Mean Platelet Volume 10.3 fL (9.4-12.4); Monocytes % 2.3 %; Platelet Count 153 K/mcL (140-400); Red Blood Count 3.31 M/mcL (4.19-5.50); Red Cell Distribution Width 14.5 % (11.5-14.5); Segmented Neutrophils % 92.8 %
[2016-11-21 06:38] LABS: Lymphocytes # 0.3 K/mcL (0.6-4.6); Monocytes # 0.1 K/mcL (0.0-1.3); Neutrophils # 5.2 K/mcL (1.6-8.9)
[2016-11-21 06:46] LABS: INR 4.2
[2016-11-21 06:49] LABS: Activated Partial Thrombo Time 34.3 Seconds (26.0-36.0); Alanine Aminotransferase 16 Units/L (0-55); Albumin 2.5 g/dL (3.5-5.0); Albumin/Globulin Ratio 0.7 (1.1-2.2); Alkaline Phosphatase 65 Units/L (38-126); Aspartate Amino Transferase 17 Units/L (5-34); BUN/Creatinine Ratio 19 (6-26); Bilirubin,Total 0.3 mg/dL (0.2-1.2); Blood Urea Nitrogen 20 mg/dL (8-26); Calcium 8.4 mg/dL (8.6-10.8); Carbon Dioxide 32 mEq/L (19-29); Chloride 100 mEq/L (98-109); Globulin 3.8 g/dL (2.4-3.5); Glucose 132 mg/dL (70-99); Osmolality,Calculated 290 (280-300); Potassium 4.1 mEq/L (3.5-4.5); Sodium 138 mEq/L (136-145); Total Protein 6.3 g/dL (6.0-8.3); eGFR For African Americans > 60 (> 60); eGFR For Non-African Americans > 60 (> 60)
[2016-11-21 06:51] LABS: Prothrombin Time 46.2 Seconds (9.4-12.1)
--- NOTE | 2016-11-21 08:32 | Internal Med History&Physical ---
Date of Encounter: 11/21/16 Time of Encounter: 08:29 Assessment and Plan (1) Cellulitis Current visit: Yes Status: Acute Reportedly [facility] We will start the patient on vancomycin Zosyn for now. Want kids to see the patient Qualifiers: Qualified Code(s): L03.90 - Cellulitis, unspecified (2) COPD (chronic obstructive pulmonary disease) with acute bronchitis Current visit: No Status: Acute I will continue nebulizer treatment every 4 hours (3) Acute and chronic respiratory failure ([id number]) Current visit: No Status: Acute Mainly due to congestive heart failure Qualifiers: Respiratory failure complication: hypoxia and hypercapnia Qualified Code(s) : J96.21 - Acute and chronic respiratory failure with hypoxia; J96.22 - Acute and chronic respiratory failure with hypercapnia (4) Diastolic CHF, acute on chronic Current visit: No Status: Acute I will start the patient on Lasix 60 mg IV twice daily. Strict intake and output. Faustin catheter will be placed. Internal Medicine - H&P: HPI Chief complaint: sob History of present illness: Mr. Salcido is a 66 year old male with multiple medical problems including COPD on 3 m home oxygen, the stoic congestive heart failure, history of pulmonary embolism on Coumadin, obstructive sleep apnea what has been on doxycycline over the past week for left leg cellulitis was sent from the [facility] for further management at our facility after he had presented shortness of breath. Over the past few days patient has been more short of breath than usual. He notices since increased swelling in both lower extremities. Patient was in respiratory distress on arrival and so was placed on BiPAP. Patient denies any increased sputum production, or chest wheezing. Subjective chills. Past Med Surg Social Fam HX - Past Medical History Medical history: cancer, CHF, COPD, DVT, hyperlipidemia, hypertension, pulmonary embolus, renal disease, valvular heart disease, other Psychiatric history: panic disorder, PTSD - Past Surgical History Surgical History: appendectomy, heart valve replacement, orthopedic, other ( back surgery, carpal tunnel surgery), other - Social History Smoking Status: Former smoker Smokeless Tobacco Status: No Alcohol use: none Drug use: none - Family History Father Adopted: No Family Member Ethnicity: Non- Living Status: Hx Family Cardiac Disorders: Yes (uncles) Hx Family Respiratory Disorders: No Hx Family Cancer: No Hx Family GI Disorders: No Hx Family Endocrine Disorder: No Hx Family Neuromuscular Disorders: No Hx Family Neurologic Disorders: No Hx Family HEENT Disorders: No Hx Family Autoimmune Disorders: No Mother Adopted: No Family Member Ethnicity: Non- Living Status: Hx Family Cardiac Disorders: No Hx Family Respiratory Disorders: No Hx Family Cancer: No Hx Family GI Disorders: No Hx Family Endocrine Disorder: No Hx Family Neuromuscular Disorders: No Hx Family Neurologic Disorders: Yes (CVA.) Hx Family HEENT Disorders: No Hx Family Autoimmune Disorders: No Internal Medicine - H&P: Meds Albuterol Sulfate [Proair Respiclick] 1 - 2 puff IH Q4H PRN 10/03/16 [History] Aspirin [Lo-Dose Aspirin EC] 81 mg PO DAILY 10/03/16 [History] Calcium Carbonate/Vitamin D3 [Calcium 500-Vit D3 200 Tablet] 1 tab PO BID [History] Docusate Sodium [Dok] 100 mg PO BID 10/03/16 [History] Ferrous Sulfate [Iron] 325 mg PO BID 10/03/16 [History] Folic Acid 1 mg PO DAILY 10/03/16 [History] Ipratropium/Albuterol Neb [Duoneb] 3 ml IH Q6HR 10/03/16 [History] Melatonin [Melatin] 3 mg PO QPM 10/03/16 [History] Polyethylene Glycol 3350 [MiraLAX] 17 gm PO DAILY 10/03/16 [History] Sennosides [Senna] 8.6 mg PO BID 10/03/16 [History] Simvastatin [Zocor] 20 mg PO HS 10/03/16 [History] Tiotropium [place] [Spiriva Respimat] 2 puff IH DAILY 10/03/16 [History] Trihexyphenidyl [Artane] 2 mg PO TID 10/03/16 [History] Clindamycin [Cleocin] 450 mg PO Q6HR 10 Days capsule 10/07/16 [Rx] Lactobacillus Acidophilus [Acidophilus] 1 each PO BID #20 tablet 10/07/16 [Rx] Warfarin perPT [Coumadin perPT] 1 each PO DAILY 30 Days each 10/07/16 [Rx] 3 Allergy/AdvReac Type Severity Reaction Status Date / Time hydrochlorothiazide Allergy Rash Verified 07/18/16 23:25 All Systems PM: A 10-system review of systems was performed and is negative for pertinent findings except as documented above in the HPI. Review of systems: 10 point review of systems is negative except for HPI - Constitutional Vitals: Temp Pulse Resp BP Pulse Ox 97.9 F 54 14 97/48 94 11/21/16 07:31 11/21/16 07:31 11/21/16 07:31 11/21/16 07:31 11/21/16 07:31 Exam: Gen.: patient is alert oriented times 3 cardiac: normal S1 S2 no additional sounds or murmurs chest: bilateral basal rales abdomen soft nontender nondistended normal bowel sounds lower extremity: left leg redness, warmth, tenderness and swelling with open wound and purulent drainage. Neuro: no new focal deficits Internal Med - H&P Results - Labs CBC & Chem 7: 11/21/16 06:25 11/21/16 06:25 Labs: Short CBC 11/21/16 Range/Units 06:25 WBC 5.6 (4.3-11.1) K/mcL Hgb 9.1 L (12.9-16.9) g/dL Hct 30.8 L (37.5-50.1) % Plt Count 153 (140-400) K/mcL Neutrophils # 5.2 (1.6-8.9) K/mcL BMP 11/21/16 06:25 Sodium 138 Potassium 4.1 Chloride 100 Carbon Dioxide 32 H BUN 20 Creatinine 1.03 Glucose 132 H Calcium 8.4 L Liver Function 11/21/16 Range/Units 06:25 Total Bilirubin 0.3 (0.2-1.2) mg/dL AST 17 (5-34) Units/L ALT 16 (0-55) Units/L Alkaline Phosphatase 65 (38-126) Units/L Albumin 2.5 L (3.5-5.0) g/dL - ABG Interpretation ABG results: 11/21/16 06:11 ABG pH 7.38 ABG pCO2 59 H ABG pO2 81 L ABG HCO3 35 H ABG Total CO2 37 H ABG O2 Saturation 95 ABG Base Excess 8 H - Impressions ITS Impressions Chest X-Ray 11/21/16 05:44 IMPRESSION: No acute cardiopulmonary disease. D/ / Tavo aNgy MD / Tavo Nagy MD Interpreting Provider: Tavo Nagy MD
[2016-11-21] MEDS ORDERED: Vancomycin 2,000 MG in D5% in Water 250 ML IVPB SCH (09:00)
[2016-11-21] MEDS: Furosemide 40 MG/4 ML VIAL IVP SCH ×3 (09:42→20:46)
[2016-11-21] MEDS: Aspirin Enteric Coated 81 MG Tablet PO SCH (10:01)
[2016-11-21] MEDS: Vancomycin 2,000 MG in D5% in Water 500 ML IVPB SCH ×2 (10:19→20:46)
[2016-11-21 10:41] LABS: Bilirubin,Urine Negative (Negative); Blood,Urine Negative (Negative); Clarity,Urine Clear (Clear); Color,Urine Yellow (Yellow); Glucose,Urine (UA) Normal (Normal); Ketones,Urine 15 mg/dL (Negative); Leukocyte Esterase,Urine Negative (Negative); Nitrite,Urine Negative (Negative); Protein,Urine 30 mg/dL (Neg-Trace); Specific Gravity,Urine 1.019 (1.010-1.025); Urobilinogen,Urine Normal (Normal)
[2016-11-21 10:43] LABS: Bacteria,Urine None Seen per hpf (None-Few); Hyaline Casts,Urine None Seen per lpf (None-Few); Squamous Epithelial Cell,Urine Moderate per lpf (None-Few); WBC,Urine 0-3 per hpf (0-3)
[2016-11-21] MEDS: Ipratropium/Albuterol Neb 3 ML IH SCH ×3 (11:09→20:22)
[2016-11-21] MEDS: Piperacillin/Tazobactam 3.375 GM in D5% in Water (Mini-Bag+) 100 ML IVPB SCH (15:38)
[2016-11-22] MEDS: Ipratropium/Albuterol Neb 3 ML IH SCH ×6 (00:03→20:41)
[2016-11-22] MEDS: Piperacillin/Tazobactam 3.375 GM in D5% in Water (Mini-Bag+) 100 ML IVPB SCH ×3 (00:34→16:10)
[2016-11-22 07:07] LABS: BUN/Creatinine Ratio 19 (6-26); Blood Urea Nitrogen 22 mg/dL (8-26); Calcium 8.2 mg/dL (8.6-10.8); Carbon Dioxide 36 mEq/L (19-29); Chloride 99 mEq/L (98-109); Glucose 119 mg/dL (70-99); Magnesium 2.1 mg/dL (1.6-2.6); Osmolality,Calculated 294 (280-300); Potassium 3.5 mEq/L (3.5-4.5); Sodium 140 mEq/L (136-145); eGFR For African Americans > 60 (> 60); eGFR For Non-African Americans > 60 (> 60)
[2016-11-22 07:19] LABS: Basophils % 0.1 %; Eosinophils # 0.1 K/mcL (0.0-0.6); Eosinophils % 0.6 %; Hematocrit 28.6 % (37.5-50.1); Hemoglobin 8.6 g/dL (12.9-16.9); Immature Granulocytes % 0.3 % (0-4); Lymphocytes # 0.8 K/mcL (0.6-4.6); Lymphocytes % 10.6 %; Mean Corpuscular HGB Conc 30.1 g/dL (31.6-35.5); Mean Corpuscular Hemoglobin 28.1 pg (28.0-33.3); Mean Corpuscular Volume 93.5 fL (83.0-100.0); Mean Platelet Volume 10.4 fL (9.4-12.4); Monocytes # 0.8 K/mcL (0.0-1.3); Monocytes % 9.7 %; Neutrophils # 6.3 K/mcL (1.6-8.9); Platelet Count 171 K/mcL (140-400); Red Blood Count 3.06 M/mcL (4.19-5.50); Red Cell Distribution Width 14.3 % (11.5-14.5); Segmented Neutrophils % 78.7 %
[2016-11-22] MEDS: Gabapentin 100 MG CAPSULE PO SCH ×3 (08:51→22:00)
[2016-11-22] MEDS: Cyanocobalamin (B-12) 1,000 MCG TABLET PO SCH (08:51)
[2016-11-22] MEDS: Aspirin Enteric Coated 81 MG Tablet PO SCH (08:51)
[2016-11-22] MEDS: Sennosides 8.6 MG TABLET PO SCH ×2 (08:51→22:00)
[2016-11-22] MEDS: Furosemide 40 MG/4 ML VIAL IVP SCH ×2 (08:52→22:00)
[2016-11-22] MEDS: Folic Acid 1 MG TABLET PO SCH (08:52)
--- NOTE | 2016-11-22 09:32 | Internal Med Progress Note ---
Date of Encounter: 11/22/16 Time of Encounter: 09:29 - Assessment and plan (1) Cellulitis Current Visit: Yes Status: Acute Assessment and plan: Patient has chronic stasis dermatitis bilateral lower extremities with chronic pedal edema, noted to have acute left leg cellulitis likely secondary to left heel ulcer. Wound culture from the presumed to be growing MRSA, follow-up blood and wound cultures sent from our emergency room. Continue IV vancomycin and Zosyn. Podiatry consult for left heel ulcer, may need debridement. Qualifiers: Site of cellulitis: extremity Site of cellulitis of extremity: lower extremity Laterality: left Qualified Code(s): L03.116 - Cellulitis of left lower limb (2) Acute and chronic respiratory failure ([id number]) Current Visit: Yes Status: Acute Assessment and plan: Secondary to acute CHF, bronchitis. Continue to treat underlying conditions. Qualifiers: Respiratory failure complication: hypoxia and hypercapnia Qualified Code(s) : J96.21 - Acute and chronic respiratory failure with hypoxia; J96.22 - Acute and chronic respiratory failure with hypercapnia; J96.22 - Acute and chronic respiratory failure with hypercapnia; J96.22 - Acute and chronic respiratory failure with hypercapnia (3) Diastolic CHF, acute on chronic Current Visit: Yes Status: Acute Assessment and plan: Improving. Continue diuresis with IV Lasix, fluid restriction and urine output monitoring. Noted to have around 2 L of net negative fluid balance. Patient is not motivated to be on beta villa or AB inhibitor as an outpatient. (4) PVD (peripheral vascular disease) Current Visit: Yes Status: Chronic (5) COPD (chronic obstructive pulmonary disease) with acute bronchitis Current Visit: Yes Status: Acute Assessment and plan: Likely mild acute bronchitis. Improving now. Hold off steroids. Continue bronchodilators and supplemental oxygen as needed. Continue inhaled corticosteroids/LABA. (6) VINCE treated with BiPAP Current Visit: Yes Status: Chronic Assessment and plan: Continue nocturnal BiPAP. (7) HLD (hyperlipidemia) Current Visit: Yes Status: Chronic Qualifiers: Hyperlipidemia type: unspecified Qualified Code(s): E78.5 - Hyperlipidemia , unspecified (8) S/P AVR (aortic valve replacement) Current Visit: Yes Status: Chronic Assessment and plan: On long-term anticoagulation with Coumadin. INR is currently 4.2, hold Coumadin. - Subjective Interval history: Reports feeling better; presented with shortness of breath, worse with exertion. No chest pain, palpitations, fever/chills; does have redness, swelling in left leg along with left heel ulcer; unable to answer all questions , family at bedside helped with history; - Constitutional Vitals: Temp Pulse Resp BP Pulse Ox 97.8 F 80 16 91/54 95 11/22/16 00:25 11/22/16 07:38 11/22/16 07:34 11/22/16 00:25 11/22/16 07:34 General appearance: Present: A&O X 3, answers questions appropriately - Respiratory Respiratory exam: Present: CTAB, rales (B/L coarse breath sounds, bibasal crepts +). Absent: accessory muscle use, rhonchi, wheezes - Cardiovascular Cardiovascular exam: Present: RRR, +S1, +S2. Absent: diastolic murmur, gallop, rubs, systolic murmur - GI/Abdominal GI/Abdominal exam: Present: normal bowel sounds, soft, no peritoneal signs. Absent: distended, tenderness - Extremities Exam Extremities exam: Present: pedal edema, warm, radial pulses palpable and symmetrical. Absent: calf tenderness, cyanotic Additional comments: B/L chronic pedal edema, stasis dermatitis; Left heel 4*5cm ulcer, foul-smelling, minimal yellowish discharge - Neurological Exam Neurological exam: Present: CN II-XII intact, oriented X3, no focal deficits. Absent: pronater drift, facial droop, speech deficit Internal Medicine: Result - Labs CBC & Chem 7: 11/22/16 06:21 11/22/16 06:21 Labs: Short CBC 11/22/16 Range/Units 06:21 WBC 8.0 (4.3-11.1) K/mcL Hgb 8.6 L (12.9-16.9) g/dL Hct 28.6 L (37.5-50.1) % Plt Count 171 (140-400) K/mcL Neutrophils # 6.3 (1.6-8.9) K/mcL BMP 11/22/16 06:21 Sodium 140 Potassium 3.5 Chloride 99 Carbon Dioxide 36 H BUN 22 Creatinine 1.17 Glucose 119 H Calcium 8.2 L Urine 11/21/16 Range/Units 10:31 Urine Color Yellow (Yellow) Urine Clarity Clear (Clear) Urine pH 7.0 (5.0-8.0) pH Units Ur Specific [place] 1.019 (1.010-1.025) Urine Protein 30 H (Neg-Trace) mg/dL Urine Glucose (UA) Normal (Normal) mg/dL - ABG Interpretation ABG results: ABG ABG pH 7.38 pH Units (7.32-7.45) 11/21/16 06:11 ABG pCO2 59 mmHg (35-45) H 11/21/16 06:11 ABG pO2 81 mmHg (85-104) L 11/21/16 06:11 ABG O2 Saturation 95 % (95-98) 11/21/16 06:11 PT/INR, D-dimer PT 46.2 Seconds (9.4-12.1) H* 11/21/16 06:25 - VTE Documentation of Mechanical Device: Intermittent pneumatic compression device Consult Discharge Plan - Plan [facility] Care Provider[facility] -
[2016-11-22] MEDS: Budesonide/Formoterol 160/4.5 MDI IH SCH ×2 (10:59→20:41)
[2016-11-22] MEDS: Vancomycin 2,000 MG in D5% in Water 500 ML IVPB SCH (12:37)
[2016-11-22] MEDS ORDERED: Melatonin 3 MG TABLET PO SCH (21:00)
--- NOTE | 2016-11-22 23:33 | Podiatry Consult Note ---
Date of Encounter: 11/22/16 Time of Encounter: 13:31 Assessment and Plan (1) Chronic heel ulcer Current visit: Yes Status: Acute After examining the ulceration site it does not appear to need any debridement or surgical intervention. Local wound care with Santyl and daily dressing changes. Patient will need to minimize the amount of weight he places on the heel and remove all weight from the heel or pressure on the site when he is sitting. The patient can follow-up after discharge in the wound care center of his choice. Qualifiers: Laterality: left Non-pressure ulcer stage: with fat layer exposed History of Present Illness Chief complaint: Left foot ulcer HPI: Mr. Salcido is a 66 year old male who relates that he has had a chronic heel ulcer for some time. Patient relates that he sits for long periods of time with pressure on his ulcer site. Patient relates that he wears compression stockings as well. Past Med Surg Social Fam HX - Past Medical History Medical history: cancer, CHF, COPD, DVT, hyperlipidemia, hypertension, pulmonary embolus, renal disease, valvular heart disease, other Psychiatric history: panic disorder, PTSD - Past Surgical History Surgical History: appendectomy, heart valve replacement, orthopedic, other ( back surgery, carpal tunnel surgery), other - Social History Smoking Status: Former smoker Smokeless Tobacco Status: No Alcohol use: none Drug use: none - Family History Father Adopted: No Family Member Ethnicity: Non- Living Status: Hx Family Cardiac Disorders: Yes (uncles) Hx Family Respiratory Disorders: No Hx Family Cancer: No Hx Family GI Disorders: No Hx Family Endocrine Disorder: No Hx Family Neuromuscular Disorders: No Hx Family Neurologic Disorders: No Hx Family HEENT Disorders: No Hx Family Autoimmune Disorders: No Mother Adopted: No Family Member Ethnicity: Non- Living Status: Hx Family Cardiac Disorders: No Hx Family Respiratory Disorders: No Hx Family Cancer: No Hx Family GI Disorders: No Hx Family Endocrine Disorder: No Hx Family Neuromuscular Disorders: No Hx Family Neurologic Disorders: Yes (CVA.) Hx Family HEENT Disorders: No Hx Family Autoimmune Disorders: No Medications and Allergies Albuterol Sulfate [Proair Respiclick] 1 - 2 puff IH Q4H PRN 10/03/16 [History] Aspirin [Lo-Dose Aspirin EC] 81 mg PO DAILY 10/03/16 [History] Calcium Carbonate/Vitamin D3 [Calcium 500-Vit D3 200 Tablet] 1 tab PO BID [History] Docusate Sodium [Dok] 100 mg PO BID 10/03/16 [History] Ferrous Sulfate [Iron] 325 mg PO BID 10/03/16 [History] Folic Acid 1 mg PO DAILY 10/03/16 [History] Polyethylene Glycol 3350 [MiraLAX] 17 gm PO DAILY 10/03/16 [History] Sennosides [Senna] 8.6 mg PO BID 10/03/16 [History] Simvastatin [Zocor] 20 mg PO HS 10/03/16 [History] Trihexyphenidyl [Artane] 2 mg PO TID 10/03/16 [History] Albuterol Neb [Proventil Neb] 2.5 mg IH Q6H PRN 11/21/16 [History] Budesonide/Formoterol 160/4.5 [Symbicort 160/4.5] 2 puff IH BIDR 11/21/16 [ History] Cyanocobalamin (B-12) [Vitamin B12] 1,000 mcg PO DAILY 11/21/16 [History] Gabapentin [Neurontin] 100 mg PO TID 11/21/16 [History] Melatonin [Melatin] 3 mg PO HS 11/21/16 [History] Omeprazole [PriLOSEC] 20 mg PO DAILY 11/21/16 [History] Petrolatum,Hydrophilic [Aloe [place]] 1 appl TP DAILY 11/21/16 [History] Pramipexole Di-HCl [Pramipexole Dihydrochloride] 0.125 mg PO TID 11/21/16 [ History] Spironolactone [Aldactone] 50 mg PO DAILY 11/21/16 [History] Torsemide [Demadex] 20 mg PO BID 11/21/16 [History] Warfarin [Coumadin] 2.5 mg PO MOFR 11/21/16 [History] Warfarin [Coumadin] 5 mg PO SUTUWETHSA 11/21/16 [History] 3 Allergy/AdvReac Type Severity Reaction Status Date / Time hydrochlorothiazide Allergy Rash Verified 07/18/16 23:25 All Systems Reviewed: A 10-system review of systems was performed and is negative for pertinent findings except as documented above in the HPI. Physical Exam - Constitutional Vitals: Temp Pulse Resp BP Pulse Ox 97.9 F 91 20 104/66 99 11/22/16 21:00 11/22/16 21:00 11/22/16 21:00 11/22/16 21:00 11/22/16 21:00 Exam: Ulceration on the plantar aspect of the left heel measuring approximately 4 cm in diameter, full-thickness in depth, no erythema, no purulence, no drainage. Pedal pulses palpable. Capillary fill time intact to the digits. There are no other open lesions, abrasions, or ulcerations. Sensation slightly diminished to bilateral lower extremities. Results - Labs Result Diagrams: 11/22/16 06:21 11/22/16 06:21 Labs: Abnormal lab results RBC 3.06 M/mcL (4.19-5.50) L 11/22/16 06:21 Hgb 8.6 g/dL (12.9-16.9) L 11/22/16 06:21 Hct 28.6 % (37.5-50.1) L 11/22/16 06:21 MCHC 30.1 g/dL (31.6-35.5) L 11/22/16 06:21 PT 46.2 Seconds (9.4-12.1) H* 11/21/16 06:25 ABG pCO2 59 mmHg (35-45) H 11/21/16 06:11 ABG pO2 81 mmHg (85-104) L 11/21/16 06:11 ABG HCO3 35 mEq/L (21-27) H 11/21/16 06:11 ABG Total CO2 37 mEq/L (20-26) H 11/21/16 06:11 ABG Base Excess 8 mEq/L (-2 to 3) H 11/21/16 06:11 Carbon Dioxide 36 mEq/L (19-29) H 11/22/16 06:21 Glucose 119 mg/dL (70-99) H 11/22/16 06:21 POC Glucose 132 (58-89) H 11/21/16 06:05 Calcium 8.2 mg/dL (8.6-10.8) L 11/22/16 06:21 B-Natriuretic Peptide 103 pg/mL (0-100) H 11/22/16 06:21 Albumin 2.5 g/dL (3.5-5.0) L 11/21/16 06:25 Globulin 3.8 g/dL (2.4-3.5) H 11/21/16 06:25 Albumin/Globulin Ratio 0.7 (1.1-2.2) L 11/21/16 06:25 Urine Protein 30 mg/dL (Neg-Trace) H 11/21/16 10:31 Urine Ketones 15 mg/dL (Negative) H 11/21/16 10:31 Urine Microscopic RBC 3-5 per hpf (0-3) H 11/21/16 10:31 Ur Squamous Epith Cells Moderate per lpf (None-Few) H 11/21/16 10:31 Vancomycin Trough 49.5 mcg/mL (10-20) H* 11/22/16 21:14 H & H 11/22/16 Range/Units 06:21 Hgb 8.6 L (12.9-16.9) g/dL Hct 28.6 L (37.5-50.1) % All other labs normal. Consult Discharge Plan - Plan [facility]errals: [facility]Primary Care Provider[facility] -
[2016-11-23] MEDS: Ipratropium/Albuterol Neb 3 ML IH SCH ×5 (00:45→15:31)
[2016-11-23] MEDS: Piperacillin/Tazobactam 3.375 GM in D5% in Water (Mini-Bag+) 100 ML IVPB SCH ×2 (00:47→08:10)
[2016-11-23 01:12] LABS: Basophils % 0.3 %; Eosinophils # 0.2 K/mcL (0.0-0.6); Eosinophils % 3.1 %; Hematocrit 29.4 % (37.5-50.1); Hemoglobin 8.7 g/dL (12.9-16.9); Immature Granulocytes % 0.3 % (0-4); Lymphocytes # 0.9 K/mcL (0.6-4.6); Lymphocytes % 13.3 %; Mean Corpuscular HGB Conc 29.6 g/dL (31.6-35.5); Mean Corpuscular Hemoglobin 27.7 pg (28.0-33.3); Mean Corpuscular Volume 93.6 fL (83.0-100.0); Mean Platelet Volume 10.6 fL (9.4-12.4); Monocytes # 0.6 K/mcL (0.0-1.3); Monocytes % 9.8 %; Neutrophils # 4.7 K/mcL (1.6-8.9); Platelet Count 190 K/mcL (140-400); Red Blood Count 3.14 M/mcL (4.19-5.50); Red Cell Distribution Width 14.3 % (11.5-14.5); Segmented Neutrophils % 73.2 %
[2016-11-23 01:21] LABS: BUN/Creatinine Ratio 17 (6-26); Blood Urea Nitrogen 19 mg/dL (8-26); Calcium 8.4 mg/dL (8.6-10.8); Carbon Dioxide 37 mEq/L (19-29); Chloride 98 mEq/L (98-109); Glucose 122 mg/dL (70-99); Magnesium 2.1 mg/dL (1.6-2.6); Osmolality,Calculated 298 (280-300); Potassium 3.6 mEq/L (3.5-4.5); Sodium 142 mEq/L (136-145); eGFR For African Americans > 60 (> 60); eGFR For Non-African Americans > 60 (> 60)
[2016-11-23 01:23] LABS: Hemoglobin A1C 4.8 %
[2016-11-23] MEDS: Furosemide 40 MG/4 ML VIAL IVP SCH (08:08)
[2016-11-23] MEDS: Folic Acid 1 MG TABLET PO SCH (08:09)
[2016-11-23] MEDS: Gabapentin 100 MG CAPSULE PO SCH (08:10)
[2016-11-23] MEDS: Sennosides 8.6 MG TABLET PO SCH (08:10)
[2016-11-23] MEDS: Cyanocobalamin (B-12) 1,000 MCG TABLET PO SCH (08:10)
[2016-11-23] MEDS: Aspirin Enteric Coated 81 MG Tablet PO SCH (08:10)
[2016-11-23] MEDS: Budesonide/Formoterol 160/4.5 MDI IH SCH (08:38)
--- NOTE | 2016-11-23 10:14 | Discharge Summary ---
Date of Encounter: 11/23/16 Time of Encounter: 10:08 - Discharge Diagnosis (1) Cellulitis Priority: Primary Status: Acute Qualifiers: Site of cellulitis: extremity Site of cellulitis of extremity: lower extremity Laterality: left Qualified Code(s): L03.116 - Cellulitis of left lower limb (2) Acute and chronic respiratory failure ([id number]) Priority: Primary Status: Acute Qualifiers: Respiratory failure complication: hypoxia and hypercapnia Qualified Code(s) : J96.21 - Acute and chronic respiratory failure with hypoxia; J96.22 - Acute and chronic respiratory failure with hypercapnia; J96.22 - Acute and chronic respiratory failure with hypercapnia; J96.22 - Acute and chronic respiratory failure with hypercapnia (3) Diastolic CHF, acute on chronic Priority: Primary Status: Acute (4) PVD (peripheral vascular disease) Priority: Secondary Status: Chronic (5) COPD (chronic obstructive pulmonary disease) with acute bronchitis Priority: Secondary Status: Chronic (6) VINCE treated with BiPAP Priority: Secondary Status: Chronic (7) HLD (hyperlipidemia) Priority: Secondary Status: Chronic Qualifiers: Hyperlipidemia type: unspecified Qualified Code(s): E78.5 - Hyperlipidemia , unspecified (8) S/P AVR (aortic valve replacement) Priority: Secondary Status: Chronic - Discharge Medications Prescriptions: Amoxicillin/Clavulanate [Augmentin] 875 mg PO BIDWM #10 tablet Collagenase Oint [Santyl] 1 appl TP DAILY #1 tube Doxycycline 100 mg PO BID #10 capsule Home Medications: Albuterol Sulfate [Proair Respiclick] 1 - 2 puff IH Q4H PRN 10/03/16 [History] Aspirin [Lo-Dose Aspirin EC] 81 mg PO DAILY 10/03/16 [History] Calcium Carbonate/Vitamin D3 [Calcium 500-Vit D3 200 Tablet] 1 tab PO BID [History] Docusate Sodium [Dok] 100 mg PO BID 10/03/16 [History] Ferrous Sulfate [Iron] 325 mg PO BID 10/03/16 [History] Folic Acid 1 mg PO DAILY 10/03/16 [History] Polyethylene Glycol 3350 [MiraLAX] 17 gm PO DAILY 10/03/16 [History] Sennosides [Senna] 8.6 mg PO BID 10/03/16 [History] Simvastatin [Zocor] 20 mg PO HS 08/19/17 [History] Trihexyphenidyl [Artane] 2 mg PO TID 10/03/16 [History] Albuterol Neb [Proventil Neb] 2.5 mg IH Q6H PRN 11/21/16 [History] Budesonide/Formoterol 160/4.5 [Symbicort 160/4.5] 2 puff IH BIDR 11/21/16 [ History] Cyanocobalamin (B-12) [Vitamin B12] 1,000 mcg PO DAILY 11/21/16 [History] Gabapentin [Neurontin] 100 mg PO TID 11/21/16 [History] Melatonin [Melatin] 3 mg PO HS 11/21/16 [History] Omeprazole [PriLOSEC] 20 mg PO DAILY 11/21/16 [History] Petrolatum,Hydrophilic [Aloe [place]] 1 appl TP DAILY 11/21/16 [History] Pramipexole Di-HCl [Pramipexole Dihydrochloride] 0.125 mg PO TID 11/21/16 [ History] Spironolactone [Aldactone] 50 mg PO DAILY 11/21/16 [History] Torsemide [Demadex] 20 mg PO BID 11/21/16 [History] Warfarin [Coumadin] 2.5 mg PO MOFR 11/21/16 [History] Warfarin [Coumadin] 5 mg PO SUTUWETHSA 11/21/16 [History] Amoxicillin/Clavulanate [Augmentin] 875 mg PO BIDWM #10 tablet 11/23/16 [Rx] Collagenase Oint [Santyl] 1 appl TP DAILY #1 tube 11/23/16 [Rx] Doxycycline 100 mg PO BID #10 capsule 11/23/16 [Rx] Allergies/Adverse Reactions: 3 Allergy/AdvReac Type Severity Reaction Status Date / Time hydrochlorothiazide Allergy Rash Verified 07/18/16 23:25 Date of admission: 11/21/16 08:24 [facility]ults: 11/21/16 08:24 Consult to Occupational Therapy [CONS] Routine Comment: Evaluate, develop and implement POC Reason for Consult: weakness Consult to Physical Therapy [CONS] Routine Comment: Evaluate, develop and implement POC Reason for Consult: weakness 11/22/16 09:25 Consult to Podiatry [CONS] Routine Consulting Provider: [facility] Reason for Consult: Left heel foul-smelling ulcer Call Completed: Yes 11/22/16 16:19 Consult to Statistical Geneticist [CONS] Routine Reason for SW Consult: may have new discharge needs before leaving Discharging clinician: Priya Ponce Anticipated date of discharge: 11/23/16 - Patient Status Disposition: Home Health Service Condition: Fair Functional capacity at discharge: uses cane/walker Overall status at discharge: patient is progressing back to baseline - Discharge Instructions Instructions: Doxycycline (By mouth), Amoxicillin/Clavulanate Potassium (By mouth), Collagenase (On the skin), Heart Failure (DC), Methicillin Resistant Staphylococcus Aureus (DC), Cellulitis (DC), Chronic Bronchitis (DC), Chronic Wound Care (DC) Follow Up With: WOUND,CARE [Other] (patient has to see [facility]) [facility] - ([facility] ,, PATIENT WILL NEED TO CALL AND MAKE HIS APPOINTMENT) Additional Instructions: F/up wiTH pcp IN 1-2 WEEKS F/up with wound care center/Podiatry in 2-3 weeks Fill scripts for a few days at [facility]. Take the receipt to the [facility] for reimbursement. - Diet and Activity Activity: resume usual activities as tolerated (no weight bearing on left heel; use chatman boot and avoid pressure over left heel ulcer) Diet: low fat, low cholesterol, low salt diet Hospital course: Mr. Salcido is a 66 year old male with the above medical problems who presented to emergency room at [facility] with complaints of shortness of breath. He was also incidentally noted to have left heel ulcer along with mild left leg cellulitis and was started on broad-spectrum IV antibiotics and transferred to our hospital for higher level of care. Patient was diagnosed with possible acute on chronic diastolic CHF and was started on IV diuresis with significant urine output and improvement in symptoms. He was also started on IV vancomycin and Zosyn for left heel ulcer and left leg cellulitis. Patient does have chronic bilateral stasis dermatitis in both his legs with associated edema, blistering and erythema, which was noted to be slightly worse in the left leg at admission. Wound culture from left heel ulcer done at the [facility] was positive for MRSA. Repeat wound culture in our hospital so far grows Proteus, sensitive to Zosyn and carbapenems. However, left heel ulcer does not look infected clinically. Podiatry was consulted and did not recommend debridement, recommend pressure off load and outpatient f/up. Case was discussed with infectious diseases and it was decided to discharge patient on oral doxycycline for possible MRSA and Augmentin. Patient is currently medically stable, saturating well on 3 L/m supplemental oxygen via nasal cannula and he does have home oxygen along with nocturnal BiPAP. Home health services are being resumed for wound care and patient is advised to follow-up with his primary care provider at the [facility]. - Time Spent with Patient Total time spent providing and/or coordinating discharge services: Greater than 30 minutes (45 min) - Constitutional Vitals: Temp Pulse Resp BP Pulse Ox 98.1 F 88 18 102/56 97 11/23/16 07:57 11/23/16 07:57 11/23/16 08:57 11/23/16 07:57 11/23/16 08:57 General appearance: Present: A&O X 3, answers questions appropriately - Respiratory Respiratory exam: Present: CTAB. Absent: accessory muscle use, rales, rhonchi, wheezes - Cardiovascular Cardiovascular exam: Present: RRR, +S1, +S2. Absent: diastolic murmur, gallop, rubs, systolic murmur - VTE Documentation of Mechanical Device: Intermittent pneumatic compression device
--- NOTE | 2016-11-23 10:28 | Physician Discharge Referral ---
Home Health/Hosp Referral Info Transfer to: Home Health Attending Provider: Priya Ponce Provider in Charge Post Discharge: PCP - Diagnosis (1) Cellulitis Priority: Primary Status: Acute (2) Acute and chronic respiratory failure ([id number]) Priority: Primary Status: Acute (3) Diastolic CHF, acute on chronic Priority: Primary Status: Acute (4) PVD (peripheral vascular disease) Priority: Secondary Status: Chronic (5) COPD (chronic obstructive pulmonary disease) with acute bronchitis Priority: Secondary Status: Chronic (6) VINCE treated with BiPAP Priority: Secondary Status: Chronic (7) HLD (hyperlipidemia) Priority: Secondary Status: Chronic (8) S/P AVR (aortic valve replacement) Priority: Secondary Status: Chronic - Respiratory Orders Oxygen / L per min (3L/min via NC) Smoking Cessation: Smoking cessation has been advised. For more information, call the [employer] Quit Line at 7-354-GPIG-NOW. - Diet/Nutrition Diet/Nutrition Orders: Cardiac - Activity Activity Orders: Ambulate, Walker - Services Needed Following services are medically necessary services: Nursing, Physical Therapy, Occupational Therapy Home Care Orders: To clean left heel ulcer with sterile water, apply Santyl ointment and cover with dry sterile dressing, daily - Transfer Medications Prescriptions: Amoxicillin/Clavulanate [Augmentin] 875 mg PO BIDWM #10 tablet Collagenase Oint [Santyl] 1 appl TP DAILY #1 tube Doxycycline 100 mg PO BID #10 capsule Home Medications: Albuterol Sulfate [Proair Respic[place]] 1 - 2 puff IH Q4H PRN 10/03/16 [History] Aspirin [Lo-Dose Aspirin EC] 81 mg PO DAILY 10/03/16 [History] Calcium Carbonate/Vitamin D3 [Calcium 500-Vit D3 200 Tablet] 1 tab PO BID [History] Docusate Sodium [Dok] 100 mg PO BID 10/03/16 [History] Ferrous Sulfate [Iron] 325 mg PO BID 10/03/16 [History] Folic Acid 1 mg PO DAILY 10/03/16 [History] Polyethylene Glycol 3350 [MiraLAX] 17 gm PO DAILY 10/03/16 [History] Sennosides [Senna] 8.6 mg PO BID 10/03/16 [History] Simvastatin [Zocor] 20 mg PO HS 10/03/16 [History] Trihexyphenidyl [Artane] 2 mg PO TID 10/03/16 [History] Albuterol Neb [Proventil Neb] 2.5 mg IH Q6H PRN 11/21/16 [History] Budesonide/Formoterol 160/4.5 [Symbicort 160/4.5] 2 puff IH BIDR 11/21/16 [ History] Cyanocobalamin (B-12) [Vitamin B12] 1,000 mcg PO DAILY 11/21/16 [History] Gabapentin [Neurontin] 100 mg PO TID 11/21/16 [History] Melatonin [Melatin] 3 mg PO HS 11/21/16 [History] Omeprazole [PriLOSEC] 20 mg PO DAILY 11/21/16 [History] Petrolatum,Hydrophilic [Aloe [place]] 1 appl TP DAILY 11/21/16 [History] Pramipexole Di-HCl [Pramipexole Dihydrochloride] 0.125 mg PO TID 11/21/16 [ History] Spironolactone [Aldactone] 50 mg PO DAILY 11/21/16 [History] Torsemide [Demadex] 20 mg PO BID 11/21/16 [History] Warfarin [Coumadin] 2.5 mg PO MOFR 11/21/16 [History] Warfarin [Coumadin] 5 mg PO SUTUWETHSA 11/21/16 [History] Amoxicillin/Clavulanate [Augmentin] 875 mg PO BIDWM #10 tablet 11/23/16 [Rx] Collagenase Oint [Santyl] 1 appl TP DAILY #1 tube 11/23/16 [Rx] Doxycycline 100 mg PO BID #10 capsule 11/23/16 [Rx] Allergies/Adverse Reactions: 3 Allergy/AdvReac Type Severity Reaction Status Date / Time hydrochlorothiazide Allergy Rash Verified 07/18/16 23:25 Certification: Further, I certify that my clinical findings support that this patient is homebound (i.e. absences from home require considerable and taxing effort and are for medical reasons or latter-day services or infrequently or short duration when for other reasons) because: Homebound Reason: Patient requires assistance of a person or device to safely leave home, Leaving home requires considerable and taxing effort due to condition Attestation: My signature below is to certify that this patient is under my care and that I, or nurse practitioner, or a physician's music assistant working with me, has a face-to -face encounter with this patient.
[2016-11-23 11:02] LABS: INR 2.2; Prothrombin Time 24.3 Seconds (9.4-12.1)
[2016-11-23 12:23] VITALS: BP 108/71
[2016-11-23] MEDS ORDERED: Aminoglycoside Consult 1 EACH MC ONE (15:29)
[2016-11-23] MEDS ORDERED: Torsemide 20 MG TABLET PO SCH (21:00)
--- NOTE | 2016-11-27 18:12 | Event Note ---
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 Sensitivities reviewed. Patient was noted to have no active infection in left heel and Podiatry consult noted no need for debridement, I&D. Case d/w ID both during his hospitalization and today, and decided not to treat patient with broader spectrum antibiotics as it does not seem to be a true infection; he is not septic. I have called patient and spoke to his , who reported he is doing well and has home health nurse providing wound care at home; also has a f/up appointment with PCP.
== END 2016-11-23 15:30 | disposition home health service (06) | DRG 291 ==
LOC: 2NNU
PROVIDERS: ADMIT Pediatrics; ATTEND Internal Medicine

== ENCOUNTER 2017-10-20 14:05 | Inpatient (IN) ==
--- NOTE | 2017-10-20 14:42 | Emergency Department Note ---
Disposition Clinical Impression: Low blood pressure reading Disposition: Still a Patient Referrals: Bennett Bear MD [Primary Care Provider] - Forms: ED Satisfaction Letter, Work/School Release General Adult HPI - General Chief complaint: ED General Medical Stated complaint: NOT HYPOTENSIVE Time Seen by Provider: 10/20/17 14:11 Source: patient, family (), EMS Mode of arrival: EMS Limitations: no limitations Nursing Notes Reviewed: Yes Vital Signs Reviewed: Yes - History of Present Illness HPI Narrative: The patient is a 67 year old male with history of congestive heart failure and renal disease who presented by EMS for hypotension. He lives at home and a home health nurse visited his house today and noticed his blood pressure was 80/60. She called the physician and he evaluated the patient at home and called EMS for continued hypotension. The patient denied symptoms at that time. EMS reported the blood pressure was normal with systolic in the 130's. The patient reported having bed sores on his buttocks that have recently worsened. The patient denied all other symptoms. His stated the patient has been sleeping more than usual, "talking a lot", has abdominal distention, visual hallucinations, and constipation for the past 2 weeks. He was last seen by his doctor 6 weeks ago. He denied chest pain, shortness of breath, lightheadedness, palpitations, abdominal pain, confusion, history of dementia. He has a history of CHF, CKD, COPD on 3L NC at home, PE and DVT not currently on blood thinners, and hypertension. He has an ICD in place. Pain Scale: 6 - Related Data Home Medications Medication Instructions Recorded Confirmed Albuterol Sulfate [Proair 1 - 2 puff IH Q4H PRN 10/03/16 11/21/16 Respiclick] Aspirin [Lo-Dose Aspirin EC] 81 mg PO DAILY 10/03/16 11/21/16 Calcium Carbonate/Vitamin D3 1 tab PO BID 10/03/16 11/21/16 [Calcium 500-Vit D3 200 Tablet] Docusate Sodium [Dok] 100 mg PO BID 10/03/16 11/21/16 Ferrous Sulfate [Iron] 325 mg PO BID 10/03/16 11/21/16 Folic Acid 1 mg PO DAILY 10/03/16 11/21/16 Polyethylene Glycol 3350 [MiraLAX] 17 gm PO DAILY 10/03/16 11/21/16 Sennosides [Senna] 8.6 mg PO BID 10/03/16 11/21/16 Simvastatin [Zocor] 20 mg PO HS 10/03/16 11/21/16 Trihexyphenidyl [Artane] 2 mg PO TID 10/03/16 11/21/16 Albuterol Neb [Proventil Neb] 2.5 mg IH Q6H PRN 11/21/16 11/21/16 Budesonide/Formoterol 160/4.5 2 puff IH BIDR 11/21/16 11/21/16 [Symbicort 160/4.5] Cyanocobalamin (B-12) [Vitamin B12] 1,000 mcg PO DAILY 11/21/16 11/21/16 Gabapentin [Neurontin] 100 mg PO TID 11/21/16 11/21/16 Melatonin [Melatin] 3 mg PO HS 11/21/16 11/21/16 Omeprazole [PriLOSEC] 20 mg PO DAILY 11/21/16 11/21/16 Petrolatum,Hydrophilic [Aloe [place]] 1 appl TP DAILY 11/21/16 11/21/16 Pramipexole Di-HCl [Pramipexole 0.125 mg PO TID 11/21/16 11/21/16 Dihydrochloride] Spironolactone [Aldactone] 50 mg PO DAILY 11/21/16 11/21/16 Torsemide [Demadex] 20 mg PO BID 11/21/16 11/21/16 Warfarin [Coumadin] 2.5 mg PO MOFR 11/21/16 11/21/16 Warfarin [Coumadin] 5 mg PO SUTUWETHSA 11/21/16 11/21/16 Previous Rx's Medication Instructions Recorded Collagenase Oint [Santyl] 1 appl TP DAILY #1 tube 11/23/16 Doxycycline 100 mg PO BID #10 capsule 11/23/16 Allergies Allergy/AdvReac Type Severity Reaction Status Date / Time hydrochlorothiazide Allergy Rash Verified 07/18/16 23:25 All systems ED: reviewed and negative except as stated. Review of Systems: As Per HPI Constitutional: Denies: fever, chills, weakness, weight change ENT ED: Denies: congestion Cardiovascular: Denies: chest pain, palpitations, dyspnea on exertion Respiratory: Denies: cough, dyspnea Gastrointestinal: Reports: abdominal pain, constipation. Denies: nausea, vomiting, diarrhea, hematemesis, melena, hematochezia Musculoskeletal: Denies: back pain, neck pain Integumentary: Reports: other (bedsores on buttocks ) Neurological: Reports: weakness, confusion. Denies: headache, numbness, paresthesias, abnormal gait, vertigo Past Medical History - Past Medical History Attestation: Yes The following information was validated with the patient. Source: patient, old records reviewed, obtained from family Medical history: Reports: cancer, CHF, COPD, DVT, hyperlipidemia, hypertension, pulmonary embolus, renal disease, valvular heart disease, other Surgical history: Reports: appendectomy, heart valve replacement, orthopedic, other (back surgery, carpal tunnel surgery), pacemaker/AICD, other Psychiatric history: Reports: panic disorder, PTSD - Social History Smoking Status: Former smoker Smokeless Tobacco Status: No Alcohol use: Reports: none Drug use: Reports: none Physical Exam - General Limitations: no limitations General appearance: alert, other (Somnolent but arousable) - Head Head exam: atraumatic, normocephalic - Eye Eye exam: Present: normal appearance, PERRL, EOMI - ENT ENT exam: normal exam, normal oropharynx, mucous membranes moist - Neck Neck exam: Present: normal inspection, full ROM, trachea midline - Chest Chest inspection: Present: normal inspection, symmetric chest wall rise - Respiratory Respiratory exam: Present: normal lung sounds bilaterally. Absent: respiratory distress - Cardiovascular Cardiovascular exam: Present: regular rate, normal rhythm, normal heart sounds - Abdominal Exam Abdominal exam: Present: soft, tenderness, distention, normal bowel sounds. Absent: guarding, rebound, rigidity Abdominal tenderness: Present: LLQ, diffuse - Extremities Exam Extremities exam: Present: normal inspection, full ROM, normal capillary refill. Absent: pedal edema - Neurological Exam Neurological exam: Present: other (patient appears to be confused and answers questions inappropriately) - Expanded Neurological Exam Motor strength - LUE: 5/5 Motor strength - RUE: 5/5 Motor strength - LLE: 5/5 Motor strength - RLE: 5/5 Coma Scale Eye Opening: To Voice Coma Scale Motor Response: Obeys Commands Coma Scale Verbal Response: Confused Coma Scale Total: 13 - Psychiatric Psychiatric exam: Present: flat affect - Skin Skin exam: Present: warm, dry, intact, normal color Course Course Narrative: I have re-performed and reviewed the history documented by the medical student, and I confirm its accuracy except as noted below 67-year-old male history of heart failure, COPD, and hypertension since emergency department via EMS for reported low blood pressure. He lives at home with his and gets home health nurse visits every Wednesday. Today states there is another nurse I came to check the safety of the house in stating the patient did not appear well. Called the ID physician who came to evaluate the patient and reportedly had to blood pressure readings of systolic 86. EMS was called to transfer the patient here to emergency department for evaluation. Initial blood pressure via EMS as well as here in the emergency department showed a systolic blood pressure 130. Why states over the past several days approximately a week patient has been more sleepier than usual. He does not appear any more confused than usual. Denies any fever coffer congestion. He is complaining of some sharp abdominal pain in the left lower quadrant. was not aware of this but patient does report this. No history of liver disease. No alcohol use. reports he has a history of hypertension however review of his prescription medication list that was updated today by ID physician does not reveal any antihypertensive medications. Does have a couple of diuretics spironolactone and torsemide. He has been taking these medications as prescribed. also reports last night he did fall but did not hit his head. He also takes Trihexyphenidyl. denies history of dementia. Otherwise the only other complaint is bedsores to his buttocks that does appear to be getting worse reports. on physical exam patient is somnolent but easily aroused ball. Does wake up and answer some questions appropriately. He states he is very sleepy and is belly hurts. He denies any chest pain or shortness of breath. Lungs are clear to auscultation bilaterally. His abdomen is slightly distended but otherwise soft. He has been constipated the past few days and takes laxatives. Tenderness is located to the humble like all and left lower quadrant. He is able to move [place] extremities without difficulty. PERRL, EOMI. Neurologically intact. The lowest blood pressure reading that we have here is a systolic of 96. At this time sepsis workup initiated. He has 2 circular pressure ulcers to bilateral buttock with some skin breakdown. It does not appear acutely infected at this time. Will evaluate for possible sepsis including the CT of the head in abdomen and pelvis. May require admission. - Reevaluation(s) Reevaluation #1: Labs shows that the patient is retaining carbon dioxide and could be the reason for his confusion and mental state. Patient placed on the BiPAP given his history of COPD. Anemia is at baseline. His creatinine appears at this line. CT imaging does not reveal any acute etiology. His chest x-ray to show some mild pulmonary edema should improve with the BiPAP. Patient will likely require admission for his altered mental state. He continues to remain hemodynamically stable. Time: 16:57 Vital Signs Temperature 97.7 F 10/20/17 14:10 Pulse Rate 71 10/20/17 14:10 Respiratory Rate 20 10/20/17 14:10 Blood Pressure 117/74 10/20/17 14:10 O2 Sat by Pulse Oximetry 99 10/20/17 14:10 Temperature 97.7 F 10/20/17 14:10 Pulse Rate 74 10/20/17 17:03 Respiratory Rate 14 10/20/17 17:03 Blood Pressure 108/55 10/20/17 17:03 O2 Sat by Pulse Oximetry 100 10/20/17 17:03 Oxygen Delivery Oxygen Delivery Bipap Medical Decision Making - Medical Records Medical records reviewed: Yes I reviewed the patient's medical records. - Lab Data Lab results reviewed: Yes I reviewed the patient's lab results. Result diagrams: 10/20/17 15:27 10/20/17 15:27 Lab Results 10/20/17 10/20/17 10/20/17 Range/Units 15:27 15:27 15:27 WBC 9.0 (4.3-11.1) K/mcL RBC 3.73 L (4.19-5.50) M/mcL Hgb 11.6 L (12.9-16.9) g/dL Hct 36.6 L (37.5-50.1) % MCV 98.1 (83.0-100.0) fL MCH 31.1 (28.0-33.3) pg MCHC 31.7 (31.6-35.5) g/dL RDW 14.8 H (11.5-14.5) % Plt Count 142 (140-400) K/mcL MPV 10.8 (9.4-12.4) fL Immature Gran % 0.4 (0-4) % Seg Neutrophils % 80.1 % Lymphocytes % 10.7 % Monocytes % 6.7 % Eosinophils % 1.9 % Basophils % 0.2 % Neutrophils # 7.2 (1.6-8.9) K/mcL Lymphocytes # 1.0 (0.6-4.6) K/mcL Monocytes # 0.6 (0.0-1.3) K/mcL Eosinophils # 0.2 (0.0-0.6) K/mcL Basophils # 0.0 (0.0-0.2) K/mcL ABG pH (7.32-7.45) pH Units ABG pCO2 (35-45) mmHg ABG pO2 (85-104) mmHg ABG HCO3 (21-27) mEq/L ABG Total CO2 (20-26) mEq/L ABG O2 Saturation (95-98) % ABG Base Excess (-2 to 3) mEq/L O2 Delivery Device Inspired O2 (1-15=lpm [id number]=%) Sodium 140 (136-145) mEq/L Potassium 3.8 (3.5-5.1) mEq/L Chloride 97 L (98-107) mEq/L Carbon Dioxide 39 H (23-29) mEq/L BUN 22 (8-23) mg/dL Creatinine 1.38 H (0.70-1.30) mg/dL Est GFR ( Amer) > 60 (> 60) Est GFR (Non-Af Amer) 51 L (> 60) BUN/Creatinine Ratio 16 (6-26) Glucose 103 (70-105) mg/dL Calculated Osmolality 294 (280-300) Lactic Acid 0.5 (0.5-2.2) mmol/L Calcium 9.6 (8.6-10.3) mg/dL Total Bilirubin 0.4 (0.3-1.0) mg/dL Direct Bilirubin 0.1 (0.0-0.2) mg/dL Indirect Bilirubin 0.3 (0.0-1.2) mg/dL AST 22 (13-39) Units/L ALT 19 (7-52) Units/L Alkaline Phosphatase 75 (34-104) Units/L Ammonia (16-53) mcmol/L Troponin I < 0.03 (< 0.04) ng/mL B-Natriuretic Peptide (Less than 100) pg/mL Serum Total Protein 6.3 L (6.4-8.9) g/dL Albumin 3.7 (3.5-5.7) g/dL Globulin 2.6 (2.4-3.5) g/dL Albumin/Globulin Ratio 1.4 (1.1-2.2) 10/20/17 10/20/17 10/20/17 Range/Units 15:52 15:52 16:36 WBC (4.3-11.1) K/mcL RBC (4.19-5.50) M/mcL Hgb (12.9-16.9) g/dL Hct (37.5-50.1) % MCV (83.0-100.0) fL MCH (28.0-33.3) pg MCHC (31.6-35.5) g/dL RDW (11.5-14.5) % Plt Count (140-400) K/mcL MPV (9.4-12.4) fL Immature Gran % (0-4) % Seg Neutrophils % % Lymphocytes % % Monocytes % % Eosinophils % % Basophils % % Neutrophils # (1.6-8.9) K/mcL Lymphocytes # (0.6-4.6) K/mcL Monocytes # (0.0-1.3) K/mcL Eosinophils # (0.0-0.6) K/mcL Basophils # (0.0-0.2) K/mcL ABG pH 7.37 (7.32-7.45) pH Units ABG pCO2 72 H* (35-45) mmHg ABG pO2 76 L (85-104) mmHg ABG HCO3 42 H (21-27) mEq/L ABG Total CO2 44 H (20-26) mEq/L ABG O2 Saturation 94 L (95-98) % ABG Base Excess 13 H (-2 to 3) mEq/L O2 Delivery Device Cannula Inspired O2 28.0 (1-15=lpm [id number]=%) Sodium (136-145) mEq/L Potassium (3.5-5.1) mEq/L Chloride (98-107) mEq/L Carbon Dioxide (23-29) mEq/L BUN (8-23) mg/dL Creatinine (0.70-1.30) mg/dL Est GFR ( Amer) (> 60) Est GFR (Non-Af Amer) (> 60) BUN/Creatinine Ratio (6-26) Glucose (70-105) mg/dL Calculated Osmolality (280-300) Lactic Acid (0.5-2.2) mmol/L Calcium (8.6-10.3) mg/dL Total Bilirubin (0.3-1.0) mg/dL Direct Bilirubin (0.0-0.2) mg/dL Indirect Bilirubin (0.0-1.2) mg/dL AST (13-39) Units/L ALT (7-52) Units/L Alkaline Phosphatase (34-104) Units/L Ammonia 26 (16-53) mcmol/L Troponin I (< 0.04) ng/mL B-Natriuretic Peptide 26 (Less than 100) pg/mL Serum Total Protein (6.4-8.9) g/dL Albumin (3.5-5.7) g/dL Globulin (2.4-3.5) g/dL Albumin/Globulin Ratio (1.1-2.2) - EKG Data EKG #1 EKG attestation: Yes I reviewed and interpreted this EKG. EKG results narrative: EKG was performed 1414 normal sinus rhythm 68 bpm, normal axis, no ST elevations or depression, good R wave progression, intervals within normal limits. No old EKG available for comparison at this time. No acute ischemic changes. Attestation Statement - Attestation Attestation: I, Leoncio Khoury DO, examined this patient [id number] and my medical decision-making was reviewed with Eric Suarez DO , Resident Physician. I agree with the documented findings, disposition and treatment plan as described except to the extent set forth below. Please see my progress notes for details.
[2017-10-20 15:46] LABS: Basophils % 0.2 %; Eosinophils # 0.2 K/mcL (0.0-0.6); Eosinophils % 1.9 %; Hematocrit 36.6 % (37.5-50.1); Hemoglobin 11.6 g/dL (12.9-16.9); Immature Granulocytes % 0.4 % (0-4); Lymphocytes % 10.7 %; Mean Corpuscular HGB Conc 31.7 g/dL (31.6-35.5); Mean Corpuscular Hemoglobin 31.1 pg (28.0-33.3); Mean Corpuscular Volume 98.1 fL (83.0-100.0); Mean Platelet Volume 10.8 fL (9.4-12.4); Monocytes # 0.6 K/mcL (0.0-1.3); Monocytes % 6.7 %; Neutrophils # 7.2 K/mcL (1.6-8.9); Platelet Count 142 K/mcL (140-400); Red Blood Count 3.73 M/mcL (4.19-5.50); Red Cell Distribution Width 14.8 % (11.5-14.5); Segmented Neutrophils % 80.1 %
[2017-10-20 15:58] LABS: BUN/Creatinine Ratio 16 (6-26); Blood Urea Nitrogen 22 mg/dL (8-23); Calcium 9.6 mg/dL (8.6-10.3); Carbon Dioxide 39 mEq/L (23-29); Chloride 97 mEq/L (98-107); Glucose 103 mg/dL (70-105); Osmolality,Calculated 294 (280-300); Potassium 3.8 mEq/L (3.5-5.1); Sodium 140 mEq/L (136-145); Troponin I < 0.03 ng/mL (< 0.04); eGFR For Non-African Americans 51 (> 60)
[2017-10-20 16:12] LABS: Alanine Aminotransferase 19 Units/L (7-52); Albumin 3.7 g/dL (3.5-5.7); Albumin/Globulin Ratio 1.4 (1.1-2.2); Alkaline Phosphatase 75 Units/L (34-104); Aspartate Amino Transferase 22 Units/L (13-39); Bilirubin,Direct 0.1 mg/dL (0.0-0.2); Bilirubin,Indirect 0.3 mg/dL (0.0-1.2); Bilirubin,Total 0.4 mg/dL (0.3-1.0); Globulin 2.6 g/dL (2.4-3.5); Total Protein 6.3 g/dL (6.4-8.9)
[2017-10-20 16:42] LABS: ABG Base Excess 13 mEq/L (-2 to 3); ABG HCO3 42 mEq/L (21-27); ABG Oxygen Saturation 94 % (95-98); ABG PCO2 72 mmHg (35-45); ABG PH 7.37 pH Units (7.32-7.45); ABG PO2 76 mmHg (85-104); ABG TCO2 44 mEq/L (20-26)
--- NOTE | 2017-10-20 16:53 | Emergency Department Note ---
Disposition Clinical Impression: Low blood pressure reading, Hypercapnia, Confusion Disposition: Admitted As Inpatient Condition: Fair Referrals: Bennett Bear MD [Primary Care Provider] - Forms: ED Satisfaction Letter, Work/School Release Time of Disposition: 17:57 General Adult HPI - General Chief complaint: ED General Medical Stated complaint: NOT HYPOTENSIVE Time Seen by Provider: 10/20/17 14:11 Source: patient, family (), EMS Mode of arrival: EMS Limitations: no limitations - History of Present Illness Pain Scale: 6 - Related Data Home Medications Medication Instructions Recorded Confirmed Albuterol Sulfate [Proair 1 - 2 puff IH Q4H PRN 10/03/16 10/20/17 Respiclick] Aspirin [Lo-Dose Aspirin EC] 81 mg PO DAILY 10/03/16 10/20/17 Calcium Carbonate/Vitamin D3 1 tab PO BID 10/03/16 10/20/17 [Calcium 500-Vit D3 200 Tablet] Docusate Sodium [Dok] 100 mg PO BID 10/03/16 10/20/17 Ferrous Sulfate [Iron] 325 mg PO BID 10/03/16 10/20/17 Folic Acid 1 mg PO DAILY 10/03/16 10/20/17 Polyethylene Glycol 3350 [MiraLAX] 17 gm PO DAILY 10/03/16 10/20/17 Sennosides [Senna] 8.6 mg PO BID 10/03/16 10/20/17 Simvastatin [Zocor] 20 mg PO HS 10/03/16 10/20/17 Trihexyphenidyl [Artane] 2 mg PO TID 10/03/16 10/20/17 Albuterol Neb [Proventil Neb] 2.5 mg IH Q6H PRN 11/21/16 10/20/17 Budesonide/Formoterol 160/4.5 2 puff IH BIDR 11/21/16 10/20/17 [Symbicort 160/4.5] Cyanocobalamin (B-12) [Vitamin B12] 1,000 mcg PO DAILY 11/21/16 10/20/17 Gabapentin [Neurontin] 100 mg PO TID 11/21/16 10/20/17 Omeprazole [PriLOSEC] 20 mg PO DAILY 11/21/16 10/20/17 Petrolatum,Hydrophilic [Aloe Metaline] 1 appl TP DAILY 11/21/16 10/20/17 Pramipexole Di-HCl [Pramipexole 0.125 mg PO TID 11/21/16 10/20/17 Dihydrochloride] Spironolactone [Aldactone] 50 mg PO DAILY 11/21/16 10/20/17 Torsemide [Demadex] 20 mg PO BID 11/21/16 10/20/17 Allergies Allergy/AdvReac Type Severity Reaction Status Date / Time hydrochlorothiazide Allergy Rash Verified 07/18/16 23:25 Constitutional: Denies: fever, chills, weakness, weight change ENT ED: Denies: congestion Cardiovascular: Denies: chest pain, palpitations, dyspnea on exertion Respiratory: Denies: cough, dyspnea Gastrointestinal: Reports: abdominal pain, constipation. Denies: nausea, vomiting, diarrhea, hematemesis, melena, hematochezia Musculoskeletal: Denies: back pain, neck pain Integumentary: Reports: other (bedsores on buttocks ) Neurological: Reports: weakness, confusion. Denies: headache, numbness, paresthesias, abnormal gait, vertigo Past Medical History - Past Medical History Medical history: Reports: cancer, CHF, COPD, DVT, hyperlipidemia, hypertension, pulmonary embolus, renal disease, valvular heart disease, other Surgical history: Reports: appendectomy, heart valve replacement, orthopedic, other (back surgery, carpal tunnel surgery), pacemaker/AICD, other Psychiatric history: Reports: panic disorder, PTSD - Social History Smoking Status: Former smoker Smokeless Tobacco Status: No Alcohol use: Reports: none Drug use: Reports: none Physical Exam - General Limitations: no limitations General appearance: alert, other (Somnolent but arousable) Course Vital Signs Temperature 97.7 F 10/20/17 14:10 Pulse Rate 71 10/20/17 14:10 Respiratory Rate 20 10/20/17 14:10 Blood Pressure 117/74 10/20/17 14:10 O2 Sat by Pulse Oximetry 99 10/20/17 14:10 Temperature 97.7 F 10/20/17 14:10 Pulse Rate 74 10/20/17 17:03 Respiratory Rate 14 10/20/17 17:03 Blood Pressure 108/55 10/20/17 17:03 O2 Sat by Pulse Oximetry 100 10/20/17 17:03 Oxygen Delivery Oxygen Delivery Bipap Medical Decision Making - Lab Data Result diagrams: 10/20/17 15:27 10/20/17 15:27 Lab Results 10/20/17 10/20/17 10/20/17 Range/Units 15:27 15:27 15:27 WBC 9.0 (4.3-11.1) K/mcL RBC 3.73 L (4.19-5.50) M/mcL Hgb 11.6 L (12.9-16.9) g/dL Hct 36.6 L (37.5-50.1) % MCV 98.1 (83.0-100.0) fL MCH 31.1 (28.0-33.3) pg MCHC 31.7 (31.6-35.5) g/dL RDW 14.8 H (11.5-14.5) % Plt Count 142 (140-400) K/mcL MPV 10.8 (9.4-12.4) fL Immature Gran % 0.4 (0-4) % Seg Neutrophils % 80.1 % Lymphocytes % 10.7 % Monocytes % 6.7 % Eosinophils % 1.9 % Basophils % 0.2 % Neutrophils # 7.2 (1.6-8.9) K/mcL Lymphocytes # 1.0 (0.6-4.6) K/mcL Monocytes # 0.6 (0.0-1.3) K/mcL Eosinophils # 0.2 (0.0-0.6) K/mcL Basophils # 0.0 (0.0-0.2) K/mcL ABG pH (7.32-7.45) pH Units ABG pCO2 (35-45) mmHg ABG pO2 (85-104) mmHg ABG HCO3 (21-27) mEq/L ABG Total CO2 (20-26) mEq/L ABG O2 Saturation (95-98) % ABG Base Excess (-2 to 3) mEq/L O2 Delivery Device Inspired O2 (1-15=lpm [id number]=%) Sodium 140 (136-145) mEq/L Potassium 3.8 (3.5-5.1) mEq/L Chloride 97 L (98-107) mEq/L Carbon Dioxide 39 H (23-29) mEq/L BUN 22 (8-23) mg/dL Creatinine 1.38 H (0.70-1.30) mg/dL Est GFR ( Amer) > 60 (> 60) Est GFR (Non-Af Amer) 51 L (> 60) BUN/Creatinine Ratio 16 (6-26) Glucose 103 (70-105) mg/dL Calculated Osmolality 294 (280-300) Lactic Acid 0.5 (0.5-2.2) mmol/L Calcium 9.6 (8.6-10.3) mg/dL Total Bilirubin 0.4 (0.3-1.0) mg/dL Direct Bilirubin 0.1 (0.0-0.2) mg/dL Indirect Bilirubin 0.3 (0.0-1.2) mg/dL AST 22 (13-39) Units/L ALT 19 (7-52) Units/L Alkaline Phosphatase 75 (34-104) Units/L Ammonia (16-53) mcmol/L Troponin I < 0.03 (< 0.04) ng/mL B-Natriuretic Peptide (Less than 100) pg/mL Serum Total Protein 6.3 L (6.4-8.9) g/dL Albumin 3.7 (3.5-5.7) g/dL Globulin 2.6 (2.4-3.5) g/dL Albumin/Globulin Ratio 1.4 (1.1-2.2) 10/20/17 10/20/17 10/20/17 Range/Units 15:52 15:52 16:36 WBC (4.3-11.1) K/mcL RBC (4.19-5.50) M/mcL Hgb (12.9-16.9) g/dL Hct (37.5-50.1) % MCV (83.0-100.0) fL MCH (28.0-33.3) pg MCHC (31.6-35.5) g/dL RDW (11.5-14.5) % Plt Count (140-400) K/mcL MPV (9.4-12.4) fL Immature Gran % (0-4) % Seg Neutrophils % % Lymphocytes % % Monocytes % % Eosinophils % % Basophils % % Neutrophils # (1.6-8.9) K/mcL Lymphocytes # (0.6-4.6) K/mcL Monocytes # (0.0-1.3) K/mcL Eosinophils # (0.0-0.6) K/mcL Basophils # (0.0-0.2) K/mcL ABG pH 7.37 (7.32-7.45) pH Units ABG pCO2 72 H* (35-45) mmHg ABG pO2 76 L (85-104) mmHg ABG HCO3 42 H (21-27) mEq/L ABG Total CO2 44 H (20-26) mEq/L ABG O2 Saturation 94 L (95-98) % ABG Base Excess 13 H (-2 to 3) mEq/L O2 Delivery Device Cannula Inspired O2 28.0 (1-15=lpm [id number]=%) Sodium (136-145) mEq/L Potassium (3.5-5.1) mEq/L Chloride (98-107) mEq/L Carbon Dioxide (23-29) mEq/L BUN (8-23) mg/dL Creatinine (0.70-1.30) mg/dL Est GFR ( Amer) (> 60) Est GFR (Non-Af Amer) (> 60) BUN/Creatinine Ratio (6-26) Glucose (70-105) mg/dL Calculated Osmolality (280-300) Lactic Acid (0.5-2.2) mmol/L Calcium (8.6-10.3) mg/dL Total Bilirubin (0.3-1.0) mg/dL Direct Bilirubin (0.0-0.2) mg/dL Indirect Bilirubin (0.0-1.2) mg/dL AST (13-39) Units/L ALT (7-52) Units/L Alkaline Phosphatase (34-104) Units/L Ammonia 26 (16-53) mcmol/L Troponin I (< 0.04) ng/mL B-Natriuretic Peptide 26 (Less than 100) pg/mL Serum Total Protein (6.4-8.9) g/dL Albumin (3.5-5.7) g/dL Globulin (2.4-3.5) g/dL Albumin/Globulin Ratio (1.1-2.2) Attestation Statement - Attestation Attestation: I, Leoncio Khoury DO, examined this patient [id number] and my medical decision-making was reviewed with Eric Suarez DO , Resident Physician. I agree with the documented findings, disposition and treatment plan as described except to the extent set forth below. Please see my progress notes for details. 67-year-old male presents emergency room for evaluation of confusion. The family contacted the home health aids today and they checked his blood pressure multiple different times in the [facility] recommended called to the emergency room. Patient is chronically disabled secondary to progressively worsening congestive heart failure and fluid overload. Patient typically uses 2 L of oxygen as well as BiPAP at night for breathing. He is on the oxygen 24 hours a day. Patient family is with him at the bedside and denies chest pain fevers chills shortness of breath headache vision changes nausea vomiting or diarrhea over the last 24 hours. Patient does not answer questions here at this time. The onset of this etiology is unable to be differentiated. Patient does not have any visible asymmetry to the facial aspect and evaluation. Head is atraumatic his pupils are round reactive his lungs are clear heart is regular abdomen is soft. Patient is breathing easily with a pulse ox 96% his blood pressure heart is regular. Patient is concerning for underlying etiology including infection. CT the head CT the abdomen ordered along with chest x-ray EKG CBC chemistry troponin and BNP blood cultures urinalysis and an ABG. Once the full workup and treatment course is established. The patient will most every required admission. Disposition pending the treatment course and evaluation. See detailed documentation of physical exam, medical intervention, medical decision-making and disposition the resident physician's note. No critical care by the patient's treatment course at this time. 1645 ABG shows hypercapnic presentation with a CO2 of 73. Patient be placed on BiPAP and oxygen at this point in the continuation of care. CT of the head and abdomen are unremarkable this point. Chest x-ray is remarkable for mild pulmonary congestion but no signs of consolidation or infection at this point.. 1750 Patient was discussed with the hospitals. Patient will be admitted for confusion secondary to hypercapnia. No other acute etiology noted during the workup and treatment course. Patient is in stable medical condition time of admission.
[2017-10-20 19:39] LABS: Bilirubin,Urine Negative (Negative); Blood,Urine Negative (Negative); Clarity,Urine Clear (Clear); Color,Urine Yellow (Yellow); Glucose,Urine (UA) Normal (Normal); Ketones,Urine Negative (Negative); Leukocyte Esterase,Urine Negative (Negative); Nitrite,Urine Negative (Negative); PH,Urine 6.5 pH Units (5.0-8.0); Protein,Urine Negative (Neg-Trace); Specific Gravity,Urine 1.018 (1.010-1.025); Urobilinogen,Urine Normal (Normal)
[2017-10-20] MEDS ORDERED: Naloxone 0.4 MG/ML INJ IVP PRN (20:57)
[2017-10-20] MEDS ORDERED: Acetaminophen 325 MG TABLET PO PRN (20:57)
[2017-10-20] MEDS ORDERED: Albuterol 2.5 MG/3 ML NEBULIZER IH PRN (21:09)
--- NOTE | 2017-10-20 21:35 | Internal Med History&Physical ---
Date of Encounter: 10/20/17 Time of Encounter: 19:40 Internal Medicine - H&P: HPI Chief complaint: swelling; altered mental status; SOB Admitted From: Emergency Dept Plans for Post Hospital Care: Home History of present illness: Mr. Salcido is a 67 year old male who presents to the ER tonight for concerns of altered mental status, reported hypotension, increased swelling, and shortness of breath. He was being evaluated by his primary care physician via home visit today from the [facility]. He was noted to have altered mental status and hypotension, so he was sent by his PCP to the ER via EMS. Reportedly, blood pressure at home was running 80's systolic. However, per EMS records and ER records, blood pressure was running around 130's systolic. There was no other reports of hypotension. In the ER, patient was noted to have hypercarbia on routine chemistry and ABG analysis. He was somnolent. He was placed on BiPAP and improved significantly. There was also concern that he had some underlying CHF as well. He was subsequently admitted to hospitalist service. Upon my assessment of the patient, I spoke with patient and his who was present. She confirms the above history. She states he is much more alert and attentive now than he was prior to admission. He has a history of chronic diastolic CHF. He is mostly bedridden due to his comorbidities. He was well until yesterday with regards to his somnolence and mental status changes. However, he and his both noted he has been having increasing abdominal girth, increased lower extremity edema, worsening dyspnea, and occasional cough. He has had no fevers, chills, vomiting, or diarrhea. He does have a history of sleep apnea, but he has been noncompliant with his CPAP mask. He usually goes to bed with CPAP, but he often rips off his mask at night and spends most of his time sleeping in recliner without CPAP due to orthopnea. He is a former smoker, but he quit many years ago. also reports that he has had some bed sores on his buttocks due to his chronic bedridden state. She describes his bedsores as superficial skin breakdown. Past Med Surg Social Fam HX - Past Medical History Attestation: Yes The following information was validated with the patient. Source: patient, old records reviewed, obtained from family Medical history: cancer, CHF, COPD, DVT, hyperlipidemia, hypertension, pulmonary embolus, renal disease, valvular heart disease (bioprosthetic valve) Additional medical history: PE. neuropathy Psychiatric history: panic disorder, PTSD - Past Surgical History Surgical History: appendectomy, heart valve replacement, orthopedic, other ( back surgery, carpal tunnel surgery), pacemaker/AICD, other Additional surgical history: spinal surgery x3,. carpal tunnel release - Social History Smoking Status: Former smoker Smokeless Tobacco Status: No Alcohol use: none Drug use: none Current living situation: Home, With Family Activity Level: Bed bound Recent Out of Country Travel Within the Last 8 Weeks: No - Family History Father Adopted: No Family Member Ethnicity: Non- Living Status: Hx Family Cardiac Disorders: Yes (uncles) Hx Family Respiratory Disorders: No Hx Family Cancer: No Hx Family GI Disorders: No Hx Family Endocrine Disorder: No Hx Family Neuromuscular Disorders: No Hx Family Neurologic Disorders: No Hx Family HEENT Disorders: No Hx Family Autoimmune Disorders: No Mother Adopted: No Family Member Ethnicity: Non- Living Status: Hx Family Cardiac Disorders: No Hx Family Respiratory Disorders: No Hx Family Cancer: No Hx Family GI Disorders: No Hx Family Endocrine Disorder: No Hx Family Neuromuscular Disorders: No Hx Family Neurologic Disorders: Yes (CVA.) Hx Family HEENT Disorders: No Hx Family Autoimmune Disorders: No Internal Medicine - H&P: Meds Albuterol Sulfate [Proair Respiclick] 1 - 2 puff IH Q4H PRN 10/03/16 [History] Aspirin [Lo-Dose Aspirin EC] 81 mg PO DAILY 10/03/16 [History] Calcium Carbonate/Vitamin D3 [Calcium 500-Vit D3 200 Tablet] 1 tab PO BID [History] Docusate Sodium [Dok] 100 mg PO BID 10/03/16 [History] Ferrous Sulfate [Iron] 325 mg PO BID 10/03/16 [History] Folic Acid 1 mg PO DAILY 10/03/16 [History] Polyethylene Glycol 3350 [MiraLAX] 17 gm PO DAILY 10/03/16 [History] Sennosides [Senna] 8.6 mg PO BID 10/03/16 [History] Simvastatin [Zocor] 20 mg PO HS 10/03/16 [History] Trihexyphenidyl [Artane] 2 mg PO TID 10/03/16 [History] Albuterol Neb [Proventil Neb] 2.5 mg IH Q6H PRN 11/21/16 [History] Budesonide/Formoterol 160/4.5 [Symbicort 160/4.5] 2 puff IH BIDR 11/21/16 [ History] Cyanocobalamin (B-12) [Vitamin B12] 1,000 mcg PO DAILY 11/21/16 [History] Gabapentin [Neurontin] 100 mg PO TID 11/21/16 [History] Omeprazole [PriLOSEC] 20 mg PO DAILY 11/21/16 [History] Petrolatum,Hydrophilic [Aloe [place]] 1 appl TP DAILY 11/21/16 [History] Pramipexole Di-HCl [Pramipexole Dihydrochloride] 0.125 mg PO TID 11/21/16 [ History] Spironolactone [Aldactone] 50 mg PO DAILY 11/21/16 [History] Torsemide [Demadex] 20 mg PO BID 11/21/16 [History] 3 Allergy/AdvReac Type Severity Reaction Status Date / Time hydrochlorothiazide Allergy Rash Verified 07/18/16 23:25 - Constitutional Constitutional: lethargy, weakness, weight gain, no chills, no fever(s), no night sweats - EENT Eyes: no blurry vision, no change in vision Ears: no ear pain, no tinnitus Nose, mouth and throat: no nasal congestion, no sinus pressure, no sore throat - Cardiovascular Cardiovascular ROS IM: dyspnea, edema, orthopnea, paroxysmal nocturnal dyspnea, no chest pain - Respiratory Respiratory: cough, dyspnea, no hemoptysis, no pain on inspiration, no chest congestion, no excessive phlegm production, no change in phlegm color, no pain with cough - Gastrointestinal Gastrointestinal: constipation, no abdominal pain, no diarrhea, no hematemesis, no hematochezia, no melena, no nausea, no vomiting - Genitourinary Genitourinary ROS male: no dysuria, no flank pain, no hematuria - Musculoskeletal Musculoskeletal ROS IM: no arthralgias, no back pain - Integumentary Integumentary IM: sores (bed sores/buttocks per ), no rash - Neurological Neurological ROS: confusion, no convulsions, no focal weakness, no frequent falls, no headache(s) - Psychiatric Psychiatric: confusion, no anxiety, no depression - Endocrine Endocrine IM: no cold intolerance, no heat intolerance, no polydipsia, no polyuria - Allergic/Immunologic Allergic/Immunologic: wheezing, no GI upset with certain foods - Constitutional Vitals: Temp Pulse Resp BP Pulse Ox 97.7 F 68 18 101/63 98 10/20/17 14:10 10/20/17 18:19 10/20/17 20:18 10/20/17 20:18 10/20/17 18:19 General appearance: Present: cooperative, A&O X 3, pleasant, no acute distress, answers questions appropriately Exam: minimally somnolent now; alert and appropriate -- confirmed by - Head Head exam: Present: atraumatic, normal inspection - Eye Eye exam: Present: EOMI, PERRL (pupils 2-3 mm and reactive/equal). Absent: scleral icterus Pupils: Present: normal accommodation - ENT ENT exam: Present: mucous membranes dry, normal exam, normal oropharynx - Neck Neck exam general surgery: Present: full ROM, supple. Absent: tenderness, nuchal rigidity, thyromegaly - Respiratory Respiratory exam: Present: decreased breath sounds, prolonged expiratory phase, rales (both bases), respiratory distress (mild). Absent: chest wall tenderness , rhonchi, wheezes - Cardiovascular Cardiovascular exam: Present: distant heart sounds, RRR, +S1, +S2. Absent: diastolic murmur, systolic murmur - GI/Abdominal GI/Abdominal exam: Present: distended (increased girth), normal bowel sounds, soft. Absent: hepatomegaly, mass, splenomegaly, tenderness - Extremities Exam Extremities exam: Present: full ROM, normal capillary refill, pedal edema (2-3+) , warm, radial pulses palpable and symmetrical. Absent: calf tenderness, joint swelling, tenderness - Back Exam Back exam: Absent: CVA tenderness (L), CVA tenderness (R) - Neurological Exam Neurological exam: Present: alert, CN II-XII intact, oriented X3, no focal deficits Additional comments: subtle myoclonic jerking movements at times; no focal deficits noted - Psychiatric Psychiatric exam: Present: flat affect. Absent: anxious - Skin Skin exam: Present: dry, intact, warm Additional comments: unable to roll over and assess buttocks/bottom; will consult wound care team Internal Med - H&P Results - Labs CBC & Chem 7: 10/20/17 15:27 10/20/17 15:27 Labs: Urine 10/20/17 Range/Units 19:31 Urine Color Yellow (Yellow) Urine Clarity Clear (Clear) Urine pH 6.5 (5.0-8.0) pH Units Ur Specific [place] 1.018 (1.010-1.025) Urine Protein Negative (Neg-Trace) mg/dL Urine Glucose (UA) Normal (Normal) mg/dL - ABG Interpretation Interpretation: ABG interpreted by me Additional comments: compensated respiratory acidosis 7.37/72/76/42/94% on 2 L O2 NC. - Diagnostic Studies Chest x-ray Status: image reviewed by me (cardiomegaly with pulmonary edema) - Assessment and plan (1) Acute and chronic respiratory failure with hypercapnia Current Visit: Yes Status: Acute Assessment and plan: 1. Will order BiPap at night and PRN daytime. 2. Oxygen as needed to maintain O2 sats > 92%. 3. Likely exacerbated by CHF and CPAP non-compliance. Treat CHF as detailed below. 4. Do not suspect COPD exacerbation. 5. Monitor clinically and repeat ABG if necessary. (2) Acute encephalopathy Current Visit: Yes Status: Acute Assessment and plan: 1. Likely due to hypercarbia. 2. Encephalopathy improved with Bipap per . 3. Continue BiPAP QHS and PRN. 4. Monitor clinically. 5. Further work-up if not improved by treating hypercarbia. (3) Diastolic CHF, acute on chronic Current Visit: Yes Status: Acute Assessment and plan: 1. Will treat with IV Lasix drip for 24 hours. 2. 1500 ml fluid restriction. 3. Resume home diuretics once Lasix drip discontinued. 4. Monitor fluid balance and renal function. (4) Acute kidney injury Current Visit: Yes Status: Acute Assessment and plan: 1. Avoid bolus doses of Lasix/diuretics. 2. Will place on Lasix drip for treatment of CHF. 3. Monitor renal function and fluid balance. 4. Consult nephrology if renal function does not improve. (5) DVT prophylaxis Current Visit: Yes Status: Acute Assessment and plan: 1. Heparin SQ.
[2017-10-20] MEDS: Furosemide 240 MG in D5% in Water 96 ML IVC SCH (22:14)
[2017-10-20] MEDS: *HR* Heparin 5,000 UNIT/ML VIAL SQ SCH (22:16)
[2017-10-20] MEDS: Budesonide/Formoterol 160/4.5 1 PUFF INH IH SCH (22:47)
[2017-10-21] MEDS: *HR* Heparin 5,000 UNIT/ML VIAL SQ SCH ×3 (04:55→22:25)
[2017-10-21 05:17] LABS: Basophils % 0.3 %; Eosinophils # 0.2 K/mcL (0.0-0.6); Eosinophils % 2.6 %; Hematocrit 36.3 % (37.5-50.1); Hemoglobin 11.3 g/dL (12.9-16.9); Immature Granulocytes % 0.3 % (0-4); Lymphocytes # 0.9 K/mcL (0.6-4.6); Lymphocytes % 11.7 %; Mean Corpuscular HGB Conc 31.1 g/dL (31.6-35.5); Mean Corpuscular Hemoglobin 30.6 pg (28.0-33.3); Mean Corpuscular Volume 98.4 fL (83.0-100.0); Mean Platelet Volume 11.2 fL (9.4-12.4); Monocytes # 0.6 K/mcL (0.0-1.3); Monocytes % 7.9 %; Neutrophils # 5.9 K/mcL (1.6-8.9); Platelet Count 145 K/mcL (140-400); Red Blood Count 3.69 M/mcL (4.19-5.50); Red Cell Distribution Width 14.8 % (11.5-14.5); Segmented Neutrophils % 77.2 %
[2017-10-21 05:34] LABS: INR 1.1; Prothrombin Time 11.9 Seconds (9.4-12.1)
[2017-10-21 05:37] LABS: Activated Partial Thrombo Time 32.9 Seconds (26.0-36.0)
[2017-10-21 07:57] LABS: Alanine Aminotransferase 15 Units/L (7-52); Albumin 3.4 g/dL (3.5-5.7); Albumin/Globulin Ratio 1.4 (1.1-2.2); Alkaline Phosphatase 67 Units/L (34-104); Aspartate Amino Transferase 21 Units/L (13-39); BUN/Creatinine Ratio 16 (6-26); Bilirubin,Total 0.4 mg/dL (0.3-1.0); Blood Urea Nitrogen 20 mg/dL (8-23); Calcium 8.9 mg/dL (8.6-10.3); Carbon Dioxide 34 mEq/L (23-29); Chloride 100 mEq/L (98-107); Globulin 2.4 g/dL (2.4-3.5); Glucose 107 mg/dL (70-105); Magnesium 2.2 mg/dL (1.6-2.6); Osmolality,Calculated 297 (280-300); Potassium 4.1 mEq/L (3.5-5.1); Sodium 142 mEq/L (136-145); Total Protein 5.8 g/dL (6.4-8.9); eGFR For Non-African Americans 58 (> 60)
[2017-10-21] MEDS: Budesonide/Formoterol 160/4.5 1 PUFF INH IH SCH ×2 (07:58→20:37)
[2017-10-21] MEDS: Folic Acid 1 MG TABLET PO SCH (08:50)
[2017-10-21] MEDS: Aspirin Enteric Coated 81 MG Tablet PO SCH (08:50)
[2017-10-21] MEDS: Sennosides 8.6 MG TABLET PO SCH ×2 (08:51→22:24)
[2017-10-21] MEDS: Gabapentin 100 MG CAPSULE PO SCH ×3 (08:52→22:24)
[2017-10-21] MEDS: Cyanocobalamin (B-12) 1,000 MCG TABLET PO SCH (08:52)
[2017-10-21] MEDS ORDERED: [Calcium 500-Vit D3 PO SCH (09:00)
--- NOTE | 2017-10-21 15:51 | Internal Med Progress Note ---
Hospitalist Progress Note - Encounter Date of Encounter: 10/21/17 Time of Encounter: 10:45 - Subjective Interval History: Reports feeling better today. Improving shortness of breath. Continues to have leg swelling and abdominal distention; he reports being noncompliant to CPAP mask at home as he just rips it out in sleep unknowingly. No fever/chills; - Exam Vitals: Temp Pulse Resp BP Pulse Ox 97.6 F 77 16 90/52 97 10/21/17 11:19 10/21/17 11:19 10/21/17 11:19 10/21/17 11:19 10/21/17 11:19 Exam: General: morbidly Obese male sitting up in chair, in no acute distress Neck: No lymphadenopathy. No JVD. No carotid bruits. No palpable thyroid. Chest: coarse breath sounds B/L, bibasal crackles+ Heart: Normal S1 & S2; rhythmic. No rubs or murmurs. Abdomen: Non-distended, soft and nontender, obese Extremities: normal ROM; chronic stasis dermatitis and pedal edema nonpitting; Neurological: Awake, alert and oriented to person, place and time. No focal deficits. Psych: Affect appropriate. - Assessment and Plan (1) Acute and chronic respiratory failure with hypercapnia Current Visit: Yes Status: Acute Assessment and Plan: improving; due to underlying COPD and CHF, he is on home O2; (2) Diastolic CHF, acute on chronic Current Visit: Yes Status: Acute Assessment and Plan: Echocardiogram from 2016 shows diastolic dysfunction. Repeat echocardiogram today shows preserved EF, mild concentric LVH, mild diastolic dysfunction. Bioprosthetic aortic valve with normal function. Continue diuresis with IV Lasix drip. Start strict intake/output monitoring and fluid restriction. Patient is noted to be on torsemide and spironolactone at home. (3) DVT prophylaxis Current Visit: Yes Status: Acute (4) Acute encephalopathy Current Visit: Yes Status: Acute Assessment and Plan: Metabolic/hypoxic encephalopathy. Likely due to noncompliance with CPAP and hypercapnia. ABG at admission showed mild respiratory acidosis with PH 7.37, PCO2 72. currently at baseline mental status; continue current management; (5) Acute kidney injury Current Visit: Yes Status: Resolved (6) Chronic heel ulcer Current Visit: Yes Status: Chronic (7) CKD (chronic kidney disease), stage III Current Visit: Yes Status: Chronic Assessment and Plan: Baseline serum creatinine noted to be around 1.1. Admitted with 1.38, currently improving to 1.23. Continue IV Lasix drip. Avoid new nephrotoxic agents. (8) COPD (chronic obstructive pulmonary disease) Current Visit: Yes Status: Chronic Assessment and Plan: Not in acute exacerbation. Continue when necessary bronchodilators, supplemental oxygen, inhaled corticosteroids. Telemetry monitoring. (9) HLD (hyperlipidemia) Current Visit: Yes Status: Chronic (10) VINCE (obstructive sleep apnea) Current Visit: Yes Status: Chronic Assessment and Plan: Reinforced the importance of compliance to CPAP to patient and his at bedside, verbalized understanding. (11) PVD (peripheral vascular disease) Current Visit: Yes Status: Chronic (12) S/P AVR (aortic valve replacement) Current Visit: Yes Status: Chronic (13) Essential hypertension Current Visit: Yes Status: Chronic Assessment and Plan: Patient is noted to have borderline low blood pressure, not on antihypertensives at home. Continue to monitor closely. - Time Spent with Patient Total time spent is greater than 50% in coordination of care (as documented) at patient's floor/unit and/or counseling patient: Plan of Care Discussed with: patient Internal Medicine: Result - Labs CBC & Chem 7: 10/21/17 04:43 10/21/17 04:43 Labs: Short CBC 10/21/17 Range/Units 04:43 WBC 7.6 (4.3-11.1) K/mcL Hgb 11.3 L (12.9-16.9) g/dL Hct 36.3 L (37.5-50.1) % Plt Count 145 (140-400) K/mcL Neutrophils # 5.9 (1.6-8.9) K/mcL BMP 10/21/17 04:43 Sodium 142 Potassium 4.1 Chloride 100 Carbon Dioxide 34 H BUN 20 Creatinine 1.23 Glucose 107 H Calcium 8.9 Cardiac Enzymes 10/20/17 10/21/17 10/21/17 Range/Units 21:31 04:43 09:21 Troponin I < 0.03 < 0.03 < 0.03 (< 0.04) ng/mL Liver Function 10/21/17 Range/Units 04:43 Total Bilirubin 0.4 (0.3-1.0) mg/dL AST 21 (13-39) Units/L ALT 15 (7-52) Units/L Alkaline Phosphatase 67 (34-104) Units/L Albumin 3.4 L (3.5-5.7) g/dL Urine 10/20/17 Range/Units 19:31 Urine Color Yellow (Yellow) Urine Clarity Clear (Clear) Urine pH 6.5 (5.0-8.0) pH Units Ur Specific [place] 1.018 (1.010-1.025) Urine Protein Negative (Neg-Trace) mg/dL Urine Glucose (UA) Normal (Normal) mg/dL - ABG Interpretation ABG results: ABG ABG pH 7.37 pH Units (7.32-7.45) 10/20/17 16:36 ABG pCO2 72 mmHg (35-45) H* 10/20/17 16:36 ABG pO2 76 mmHg (85-104) L 10/20/17 16:36 ABG O2 Saturation 94 % (95-98) L 10/20/17 16:36 PT/INR, D-dimer PT 11.9 Seconds (9.4-12.1) 10/21/17 04:43 - Impressions Impressions Echocardiogram 10/21/17 21:07 Impressions: LVEF 65%. Normal LV chamber size, wall thickness and systolic function. Mild concentric left ventricular hypertrophy. Mild left ventricular diastolic dysfunction. Normal right ventricular structure and function. Bioprosthetic aortic valve replacement with normal function. InsufficientTR to assess pulmonary pressure. Left Ventricular Wall Motion: Rest Echo Findings All wall segments showed normal motion. Findings: Study Quality * Technically adequate exam. ECG Findings * Normal sinus rhythm. Left Ventricle * LVEF 65%. * Normal LV chamber size, wall thickness and systolic function. * Mild concentric left ventricular hypertrophy. * Mild left ventricular diastolic dysfunction. Right Ventricle * Normal right ventricular structure and function. * TAPSE 21 mm Left Atrium * Normal left atrial size. Right Atrium * Normal right atrial size. Interatrial Septum * Interatrial septum not well evaluated. Aortic Valve * Bioprosthetic aortic valve replacement with normal function. * V1/V2 106/206 m/s, PG/MG 17/7 mmHg, KIMBERLY 2.1 * Trace aortic regurgitation. Mitral Valve * Normal mitral valve structure and function. * No mitral regurgitation. Tricuspid Valve * Normal tricuspid valve structure and function. * No tricuspid regurgitation. Pulmonic Valve * Pulmonic valve not well visualized. * No pulmonic regurgitation. Aorta * Normally sized aortic root. Pericardium * The pericardium appears normal. IVC * Normal IVC dimensions and inspiratory collapse. * RAP 10 mmHg Consult Discharge Plan - Plan Referrals: Bennett Bear MD [Primary Care Provider] - (6) Chronic heel ulcer Qualifiers: Laterality: left Non-pressure ulcer stage: with fat layer exposed Qualified Code(s): L97.422 - Non-pressure chronic ulcer of left heel and midfoot with fat layer exposed (8) COPD (chronic obstructive pulmonary disease) Qualifiers: COPD type: unspecified COPD Qualified Code(s): J44.9 - Chronic obstructive pulmonary disease, unspecified (9) HLD (hyperlipidemia) Qualifiers: Hyperlipidemia type: unspecified Qualified Code(s): E78.5 - Hyperlipidemia, unspecified
[2017-10-21] MEDS: Miconazole 2% ointment 114 GM TUBE TP SCH (16:33)
[2017-10-21] MEDS: MICONAZOLE NITRATE 57 GM TUBE TP SCH (22:25)
[2017-10-21] MEDS: Furosemide 240 MG in D5% in Water 96 ML IVC SCH (22:36)
[2017-10-22] MEDS ORDERED: 0.9 % Sodium Chloride 500 ML IVC ONE (01:21)
[2017-10-22] MEDS ORDERED: *HR* Metoprolol 5 MG/5 ML VIAL IVP ONE (01:23)
[2017-10-22] MEDS: *HR* Heparin 5,000 UNIT/ML VIAL SQ SCH ×3 (05:39→22:32)
[2017-10-22 05:46] LABS: Magnesium 2.3 mg/dL (1.6-2.6); Potassium 3.8 mEq/L (3.5-5.1)
[2017-10-22] MEDS: Budesonide/Formoterol 160/4.5 1 PUFF INH IH SCH ×2 (07:56→20:01)
[2017-10-22] MEDS: Sennosides 8.6 MG TABLET PO SCH ×2 (10:34→22:32)
[2017-10-22] MEDS: Folic Acid 1 MG TABLET PO SCH (10:35)
[2017-10-22] MEDS: Gabapentin 100 MG CAPSULE PO SCH ×3 (10:35→22:32)
[2017-10-22] MEDS: Aspirin Enteric Coated 81 MG Tablet PO SCH (10:35)
[2017-10-22] MEDS: Cholecalciferol (D-3) 1,000 UNIT TABLET PO SCH (10:38)
[2017-10-22] MEDS: Cyanocobalamin (B-12) 1,000 MCG TABLET PO SCH (10:38)
[2017-10-22] MEDS: MICONAZOLE NITRATE 57 GM TUBE TP SCH ×2 (10:39→22:32)
[2017-10-22] MEDS: Miconazole 2% ointment 114 GM TUBE TP SCH (10:39)
[2017-10-22] MEDS ORDERED: Furosemide 40 MG/4 ML VIAL IVP ONE (12:21)
[2017-10-22] MEDS: Furosemide 40 MG/4 ML VIAL IVP SCH (15:27)
--- NOTE | 2017-10-22 15:43 | Internal Med Progress Note ---
Hospitalist Progress Note - Encounter Date of Encounter: 10/22/17 Time of Encounter: 11:00 - Subjective Interval History: Sitting up in chair, denies new complaints. No chest pain, shortness of breath , palpitations. No vomiting or diarrhea. Has indwelling Faustin catheter with improving urine output. Plan of care discussed with his at bedside. - Exam Vitals: Temp Pulse Resp BP Pulse Ox 98.1 F 77 18 121/64 98 10/22/17 11:53 10/22/17 11:53 10/22/17 11:53 10/22/17 11:53 10/22/17 11:53 Exam: General: morbidly Obese male sitting up in chair, in no acute distress Neck: No lymphadenopathy. No JVD. No carotid bruits. No palpable thyroid. Chest: coarse breath sounds B/L, bibasal crackles+ Heart: Normal S1 & S2; rhythmic. No rubs or murmurs. Abdomen: Non-distended, soft and nontender, obese Extremities: normal ROM; chronic stasis dermatitis and pedal edema nonpitting; Neurological: Awake, alert and oriented to person, place and time. No focal deficits. Psych: Affect appropriate. - Assessment and Plan (1) Acute and chronic respiratory failure with hypercapnia Current Visit: Yes Status: Acute (2) Diastolic CHF, acute on chronic Current Visit: Yes Status: Acute Assessment and Plan: Echocardiogram from 2016 shows diastolic dysfunction. Repeat echocardiogram shows preserved EF, mild concentric LVH, mild diastolic dysfunction. Bioprosthetic aortic valve with normal function. Continue diuresis- discontinue Lasix drip, start twice daily IV Lasix. Start strict intake/output monitoring and fluid restriction. Had 1L net negative fluid balance. Patient is noted to be on torsemide and spironolactone at home, which are currently held. (3) DVT prophylaxis Current Visit: Yes Status: Acute (4) Acute encephalopathy Current Visit: Yes Status: Resolved (5) Acute kidney injury Current Visit: Yes Status: Acute Assessment and Plan: baseline serum creatinine noted to be around 1.1. Admitted with 1.38, slightly worse today at 1.4. Continue to monitor closely, patient requires diuresis at this time. (6) Chronic heel ulcer Current Visit: Yes Status: Chronic Assessment and Plan: Wound care consult noted, patient has stage II pressure ulcer in sacrum extending into bilateral buttocks, with superimposed fungal infection. He also has small left heel ulcer. Continue local wound care as recommended. These ulcers were present on admission. (7) CKD (chronic kidney disease), stage III Current Visit: Yes Status: Chronic (8) COPD (chronic obstructive pulmonary disease) Current Visit: Yes Status: Chronic Assessment and Plan: Not in acute exacerbation. Continue when necessary bronchodilators, supplemental oxygen, inhaled corticosteroids. Telemetry monitoring. (9) HLD (hyperlipidemia) Current Visit: Yes Status: Chronic (10) VINCE (obstructive sleep apnea) Current Visit: Yes Status: Chronic Assessment and Plan: continue nocturnal BiPAP; (11) PVD (peripheral vascular disease) Current Visit: Yes Status: Chronic (12) S/P AVR (aortic valve replacement) Current Visit: Yes Status: Chronic (13) Essential hypertension Current Visit: Yes Status: Chronic - Time Spent with Patient Total time spent is greater than 50% in coordination of care (as documented) at patient's floor/unit and/or counseling patient: Plan of Care Discussed with: patient Internal Medicine: Result - Labs CBC & Chem 7: 10/21/17 04:43 10/22/17 04:56 Labs: BMP 10/22/17 04:56 Sodium 139 Potassium 3.8 Chloride 94 L Carbon Dioxide 36 H BUN 23 Creatinine 1.42 H Glucose 107 H Calcium 9.0 - ABG Interpretation ABG results: ABG ABG pH 7.37 pH Units (7.32-7.45) 10/20/17 16:36 ABG pCO2 72 mmHg (35-45) H* 10/20/17 16:36 ABG pO2 76 mmHg (85-104) L 10/20/17 16:36 ABG O2 Saturation 94 % (95-98) L 10/20/17 16:36 PT/INR, D-dimer PT 11.9 Seconds (9.4-12.1) 10/21/17 04:43 Consult Discharge Plan - Plan Referrals: Bennett Bear MD [Primary Care Provider] - (6) Chronic heel ulcer Qualifiers: Laterality: left Non-pressure ulcer stage: with fat layer exposed Qualified Code(s): L97.422 - Non-pressure chronic ulcer of left heel and midfoot with fat layer exposed (8) COPD (chronic obstructive pulmonary disease) Qualifiers: COPD type: unspecified COPD Qualified Code(s): J44.9 - Chronic obstructive pulmonary disease, unspecified (9) HLD (hyperlipidemia) Qualifiers: Hyperlipidemia type: unspecified Qualified Code(s): E78.5 - Hyperlipidemia, unspecified
[2017-10-23] MEDS: *HR* Heparin 5,000 UNIT/ML VIAL SQ SCH ×2 (05:22→06:05)
[2017-10-23] MEDS: Furosemide 40 MG/4 ML VIAL IVP SCH (05:23)
[2017-10-23 06:42] LABS: BUN/Creatinine Ratio 18 (6-26); Blood Urea Nitrogen 25 mg/dL (8-23); Calcium 8.9 mg/dL (8.6-10.3); Carbon Dioxide 35 mEq/L (23-29); Chloride 97 mEq/L (98-107); Glucose 161 mg/dL (70-105); Magnesium 2.4 mg/dL (1.6-2.6); Osmolality,Calculated 296 (280-300); Potassium 3.8 mEq/L (3.5-5.1); Sodium 139 mEq/L (136-145); eGFR For Non-African Americans 50 (> 60)
[2017-10-23] MEDS: Budesonide/Formoterol 160/4.5 1 PUFF INH IH SCH (07:45)
[2017-10-23] MEDS: Sennosides 8.6 MG TABLET PO SCH (10:10)
[2017-10-23] MEDS: Cyanocobalamin (B-12) 1,000 MCG TABLET PO SCH (10:10)
[2017-10-23] MEDS: Folic Acid 1 MG TABLET PO SCH (10:10)
[2017-10-23] MEDS: Cholecalciferol (D-3) 1,000 UNIT TABLET PO SCH (10:10)
[2017-10-23] MEDS: Aspirin Enteric Coated 81 MG Tablet PO SCH (10:10)
[2017-10-23] MEDS: Gabapentin 100 MG CAPSULE PO SCH (10:10)
[2017-10-23] MEDS: MICONAZOLE NITRATE 57 GM TUBE TP SCH (10:11)
[2017-10-23] MEDS: Miconazole 2% ointment 114 GM TUBE TP SCH (10:11)
[2017-10-23 11:10] VITALS: BP 118/69
--- NOTE | 2017-10-23 11:54 | Discharge Summary ---
- NOTES TO OUTPATIENT PROVIDER Notes to Outpatient Provider: Acute exacerbation of diastolic CHF; Orders not resulted at time of discharge: Pending orders 10/21/17 06:00 ECG 12 lead ECG [ECG] AM 0600 Date of Encounter: 10/23/17 Time of Encounter: 11:00 - Discharge Diagnosis (1) Acute and chronic respiratory failure with hypercapnia Priority: Primary Status: Acute (2) Diastolic CHF, acute on chronic Priority: Primary Status: Acute (3) Acute encephalopathy Priority: Primary Status: Resolved (4) Acute kidney injury Priority: Primary Status: Acute (5) Chronic heel ulcer Priority: Secondary Status: Chronic Qualifiers: Laterality: left Non-pressure ulcer stage: with fat layer exposed Qualified Code(s): L97.422 - Non-pressure chronic ulcer of left heel and midfoot with fat layer exposed (6) CKD (chronic kidney disease), stage III Priority: Secondary Status: Chronic (7) COPD (chronic obstructive pulmonary disease) Priority: Secondary Status: Chronic Qualifiers: COPD type: unspecified COPD Qualified Code(s): J44.9 - Chronic obstructive pulmonary disease, unspecified (8) HLD (hyperlipidemia) Priority: Secondary Status: Chronic Qualifiers: Hyperlipidemia type: unspecified Qualified Code(s): E78.5 - Hyperlipidemia , unspecified (9) VINCE (obstructive sleep apnea) Priority: Primary Status: Chronic (10) PVD (peripheral vascular disease) Priority: Secondary Status: Chronic (11) S/P AVR (aortic valve replacement) Priority: Secondary Status: Chronic (12) Essential hypertension Priority: Secondary Status: Chronic Hospital course: Mr. Salcido is a 67 year old male with the above medical problems, who was admitted with worsening leg swelling, abdominal distention and new onset of confusion. Patient was noted to be in an acute exacerbation of CHF, started on diuresis with IV Lasix drip, transitioned to IV pushes, improved clinically with appropriate urine output. Patient is noted to be noncompliant with CPAP use at home. ABG at admission showed mild respiratory acidosis and carbon dioxide retention with PCO2 72. Mental status quickly improved with the use of CPAP and IV diuresis. Serum creatinine was slightly elevated from baseline, that is stable, and not worsening. Patient is currently medically stable, saturating well on 3 L/m supplemental oxygen that he uses at home. Home dose of torsemide and spironolactone may be resumed after discharge. Fluid restriction and CPAP use with reinforced to him and his at bedside. Home health services will be resumed. Discharge discussed with: patient, family, nurse - Time Spent with Patient Total time spent providing and/or coordinating discharge services: Greater than 30 minutes (45 min) - Discharge Medications Home Medications: Albuterol Sulfate [Proair [place]] 1 - 2 puff IH Q4H PRN 10/03/16 [History] Aspirin [Lo-Dose Aspirin EC] 81 mg PO DAILY 10/03/16 [History] Calcium Carbonate/Vitamin D3 [Calcium 500-Vit D3 200 Tablet] 1 tab PO BID [History] Docusate Sodium [Dok] 100 mg PO BID 10/03/16 [History] Ferrous Sulfate [Iron] 325 mg PO BID 10/03/16 [History] Folic Acid 1 mg PO DAILY 10/03/16 [History] Polyethylene Glycol 3350 [MiraLAX] 17 gm PO DAILY 10/03/16 [History] Sennosides [Senna] 8.6 mg PO BID 10/03/16 [History] Simvastatin [Zocor] 20 mg PO HS 10/03/16 [History] Trihexyphenidyl [Artane] 2 mg PO TID 10/03/16 [History] Albuterol Neb [Proventil Neb] 2.5 mg IH Q6H PRN 11/21/16 [History] Budesonide/Formoterol 160/4.5 [Symbicort 160/4.5] 2 puff IH BIDR 11/21/16 [ History] Cyanocobalamin (B-12) [Vitamin B12] 1,000 mcg PO DAILY 11/21/16 [History] Gabapentin [Neurontin] 100 mg PO TID 11/21/16 [History] Omeprazole [PriLOSEC] 20 mg PO DAILY 11/21/16 [History] Petrolatum,Hydrophilic [Aloe [place]] 1 appl TP DAILY 11/21/16 [History] Pramipexole Di-HCl [Pramipexole Dihydrochloride] 0.125 mg PO TID 11/21/16 [ History] Spironolactone [Aldactone] 50 mg PO DAILY 11/21/16 [History] Torsemide [Demadex] 20 mg PO BID 11/21/16 [History] Allergies/Adverse Reactions: 3 Allergy/AdvReac Type Severity Reaction Status Date / Time hydrochlorothiazide Allergy Rash Verified 07/18/16 23:25 Date of admission: 10/20/17 19:15 Primary care physician: Bennett Bear MD Consults: 10/20/17 20:57 Consult to Wound Care [CONS] Routine Reason for Consult: reports bed sores/buttocks Call Completed: No Discharging clinician: Priya Ponce Anticipated date of discharge: 10/23/17 - Constitutional Vitals: Temp Pulse Resp BP Pulse Ox 97.0 F L 79 18 118/69 98 10/23/17 11:01 10/23/17 11:01 10/23/17 11:01 10/23/17 11:01 10/23/17 11:01 General appearance: Present: cooperative, A&O X 3, obese, answers questions appropriately Exam: . - Respiratory Respiratory exam: Present: CTAB. Absent: accessory muscle use, rales, rhonchi, wheezes - Cardiovascular Cardiovascular exam: Present: RRR, +S1, +S2. Absent: diastolic murmur, gallop, rubs, systolic murmur - Patient Status Disposition: Home Health Service Condition: Fair Functional capacity at discharge: wheelchair bound Overall status at discharge: patient is progressing back to baseline - Discharge Instructions Instructions: Heart Failure (DC) Follow Up With: Bennett Bear MD [Primary Care Provider] - Additional Instructions: F/up with PCP in 1-2 weeks. Wear oxygen at all times at home. Follow a low fat, low cholesterol, low salt diet, a limit fluid your fluid intake to 1.5 liters. Return to the ER if your symptoms worsen or you develop fever, chills, chest pain, or shortness of breath. - Diet and Activity Activity: as per physical therapy, wear oxygen at all times, other (wear CPAP at night and naps) Diet: low fat, low cholesterol, low salt diet, other (fluid restriction to 1.2L/ day)
--- NOTE | 2017-10-23 12:14 | Electrocardiograph Report ---
[place] [id number] Test Date: 2017-10-20 Pat Name: Job Salcido Department: EXAM4 Room: 2N4 Gender: M [employer] Operator: : [id number] Requested By: Eric Suarez Order Number: [id number] Reading MD: Félix Rodriguez Measurements Intervals [place] Rate: 68 P: 0 PA: 184 QRS: 54 QRSD: 95 T: 18 QT: 372 QTc: 396 Interpretive Statements Sinus rhythm Low voltage, precordial leads Electronically Signed On 10-23-2017 12:13:17 EDT by Félix Rodriguez
--- NOTE | 2017-10-23 13:33 | Physician Discharge Referral ---
Home Health/Hosp Referral Info Transfer to: Home Health Attending Provider: Priya Ponce Provider in Charge Post Discharge: PCP - Diagnosis (1) Acute and chronic respiratory failure with hypercapnia Priority: Primary Status: Acute (2) Diastolic CHF, acute on chronic Priority: Primary Status: Acute (3) Acute encephalopathy Priority: Primary Status: Resolved (4) Acute kidney injury Priority: Primary Status: Acute (5) Chronic heel ulcer Priority: Secondary Status: Chronic (6) CKD (chronic kidney disease), stage III Priority: Secondary Status: Chronic (7) COPD (chronic obstructive pulmonary disease) Priority: Secondary Status: Chronic (8) HLD (hyperlipidemia) Priority: Secondary Status: Chronic (9) VINCE (obstructive sleep apnea) Priority: Primary Status: Chronic (10) PVD (peripheral vascular disease) Priority: Secondary Status: Chronic (11) S/P AVR (aortic valve replacement) Priority: Secondary Status: Chronic (12) Essential hypertension Priority: Secondary Status: Chronic - Respiratory Orders Oxygen / L per min (3L/min via [place]) Smoking Cessation: Smoking cessation has been advised. For more information, call the [place] Tobacco Quit Line at 4-368-ZANL-NOW. - Diet/Nutrition Diet/Nutrition Orders: Renal, Cardiac (fluid restriction to 1.2L/day) - Activity Activity Orders: Ambulate, Chair - Services Needed Following services are medically necessary services: Nursing, Physical Therapy, Occupational Therapy - Transfer Medications Home Medications: Albuterol Sulfate [Proair Respiclick] 1 - 2 puff IH Q4H PRN 10/03/16 [History] Aspirin [Lo-Dose Aspirin EC] 81 mg PO DAILY 10/03/16 [History] Calcium Carbonate/Vitamin D3 [Calcium 500-Vit D3 200 Tablet] 1 tab PO BID [History] Docusate Sodium [Dok] 100 mg PO BID 10/03/16 [History] Ferrous Sulfate [Iron] 325 mg PO BID 10/03/16 [History] Folic Acid 1 mg PO DAILY 10/03/16 [History] Polyethylene Glycol 3350 [MiraLAX] 17 gm PO DAILY 10/03/16 [History] Sennosides [Senna] 8.6 mg PO BID 10/03/16 [History] Simvastatin [Zocor] 20 mg PO HS 10/03/16 [History] Trihexyphenidyl [Artane] 2 mg PO TID 10/03/16 [History] Albuterol Neb [Proventil Neb] 2.5 mg IH Q6H PRN 11/21/16 [History] Budesonide/Formoterol 160/4.5 [Symbicort 160/4.5] 2 puff IH BIDR 11/21/16 [ History] Cyanocobalamin (B-12) [Vitamin B12] 1,000 mcg PO DAILY 11/21/16 [History] Gabapentin [Neurontin] 100 mg PO TID 11/21/16 [History] Omeprazole [PriLOSEC] 20 mg PO DAILY 11/21/16 [History] Petrolatum,Hydrophilic [Aloe [place]] 1 appl TP DAILY 11/21/16 [History] Pramipexole Di-HCl [Pramipexole Dihydrochloride] 0.125 mg PO TID 11/21/16 [ History] Spironolactone [Aldactone] 50 mg PO DAILY 11/21/16 [History] Torsemide [Demadex] 20 mg PO BID 11/21/16 [History] Allergies/Adverse Reactions: 3 Allergy/AdvReac Type Severity Reaction Status Date / Time hydrochlorothiazide Allergy Rash Verified 07/18/16 23:25 Certification: Further, I certify that my clinical findings support that this patient is homebound (i.e. absences from home require considerable and taxing effort and are for medical reasons or zoroastrianism services or infrequently or short duration when for other reasons) because: Homebound Reason: Patient requires assistance of a person or device to safely leave home, Leaving home requires considerable and taxing effort due to condition, Severity of cardiac or pulmonary status limits activity tolerance Attestation: My signature below is to certify that this patient is under my care and that I, or nurse practitioner, or a physician's property assistant working with me, has a face-to -face encounter with this patient.
== END 2017-10-23 14:35 | disposition home health service (06) | DRG 291 ==
LOC: 2NENU 14:05 → EMEROOARM 14:05 → OBSVTOIN 19:15 → SUATTDRO 19:15 → 2NENU 20:26
PROVIDERS: ADMIT Internal Medicine; ATTEND Internal Medicine